=== PATIENT | female | born 1940 | race Caucasian/White ===

== ENCOUNTER 2017-09-07 17:47 | Observation (INO) | payer OTHER ==
[2017-09-07] MEDS ORDERED: methylPREDNISolone NA SUCC 125 MG/2 ML VIAL IVPUSH ONE (18:20)
--- NOTE | 2017-09-07 18:25 | PDOC ---
History of Present Illness - History of Present Illness Initial Comments: 09/07/17 18:30 "Patient is a 76 year old female with past medical history of COPD, CHF and hypertension presents to the ED with shortness of breath for 2 weeks. Patient reports that shortness of breath is worsened with walking. Patient states that inhalers relieve shortness of breath for a short amount of time. She states that this feels like her COPD flares int he past. Patient experiences associated symptoms of frequent non productive cough and bilateral foot swelling that are unchanged. Patient denies fever or chills, chest pain, abdominal pain, diabetes, and high cholesterol. She denies any allergies. Pt denies asymmetric leg swelling, denies recent travel/immobilization. Pt was at Dr. Schroeder's office today and was sent in for admission for her SOB. Allergies: denies Medications: Singulair, potastrin, Myfetapine, Simbacord, Albuterol Surgeries: Gallbladder " <Neil Fernandez - Last Filed: 09/07/17 18:29> <Gorge Nelson - Last Filed: 09/07/17 21:59> - General Chief Complaint: Shortness of Breath Stated Complaint: SOB Time Seen by Provider: 09/07/17 17:52 Past History - Past Medical History Asthma: Yes COPD: Yes CHF: Yes Disorders: Yes HTN: Yes Thyroid Disease: Yes ("I get it checked every year" (not sure why)) - Surgical History Cholecystectomy: Yes (Cholecystectomy 1993) - Suicide/Smoking/Psychosocial Hx Smoking History: Never smoked Have you smoked in the past 12 months: No Hx Alcohol Use: No Drug/Substance Use Hx: No Substance Use Type: None Hx Substance Use Treatment: No <Neil Fernandez - Last Filed: 09/07/17 18:29> <Gorge Nelson - Last Filed: 09/07/17 21:59> - Past Medical History Allergies/Adverse Reactions: Allergies Allergy/AdvReac Type Severity Reaction Status Date / Time No Known Allergies Allergy Verified 09/07/17 17:49 Home Medications: Ambulatory Orders Furosemide 40 mg PO DAILY tablet 09/30/16 Albuterol 0.083% Nebulizer Maricarmen [Ventolin 0.083%] 1 neb NEB QID PRN 09/07/17 Budesonide/Formeterol Fumarate [SYMBICORT 160/4.5mcg -] 1 inh PO BID 09/07/17 Review of Systems - Review of Systems Comments:: 09/07/17 18:23 "GENERAL/CONSTITUTIONAL: No fever or chills. No weakness. HEAD, EYES, EARS, NOSE AND THROAT: No change in vision. No ear pain or discharge. No sore throat. CARDIOVASCULAR: +SOB, No chest pain RESPIRATORY: No cough, wheezing, or hemoptysis. GASTROINTESTINAL: No nausea, vomiting, diarrhea or constipation. GENITOURINARY: No dysuria, frequency, or change in urination. MUSCULOSKELETAL: No joint or muscle swelling or pain. No neck or back pain. SKIN: No rash NEUROLOGIC: No headache, vertigo, loss of consciousness, or change in strength/ sensation. ENDOCRINE: No increased thirst. No abnormal weight change. HEMATOLOGIC/LYMPHATIC: No anemia, easy bleeding, or history of blood clots. ALLERGIC/IMMUNOLOGIC: No hives or skin allergy. " <Ou,Neil - Last Filed: 09/07/17 18:29> *Physical Exam - Vital Signs Last Vital Signs Temp Pulse Resp BP Pulse Ox 98.2 F 81 20 209/104 99 09/07/17 17:47 09/07/17 17:47 09/07/17 17:47 09/07/17 17:47 09/07/17 17:47 - Physical Exam Comments: 09/07/17 18:23 "GENERAL: Awake, alert, and fully oriented, in no acute distress HEAD: No signs of trauma EYES: PERRLA, EOMI, sclera anicteric, conjunctiva clear ENT: Auricles normal inspection, hearing grossly normal, nares patent, oropharynx clear without exudates. Moist mucosa NECK: Nontender, no stepoffs, Normal ROM, supple, no lymphadenopathy, JVD, or masses LUNGS: + expiratory wheezes, prolonged expiratory phase, no rales, no rhonchi HEART: Regular rate and rhythm, normal S1 and S2, no murmurs, rubs or gallops ABDOMEN: Soft, nontender, normoactive bowel sounds. No guarding, no rebound. No masses EXTREMITIES: +1 PE BLE, no cords NEUROLOGICAL: Cranial nerves II through XII intact. 5/5 strength and sensation in all extremities, Normal speech, normal gait, normal cerebellar function SKIN: Warm, Dry, normal turgor, no rashes or lesions noted. " <Ou,Neil - Last Filed: 09/07/17 18:29> - Vital Signs Last Vital Signs Temp Pulse Resp BP Pulse Ox 98.2 F 79 20 177/73 97 09/07/17 17:47 09/07/17 19:55 09/07/17 19:55 09/07/17 19:55 09/07/17 19:55 <Gorge Nelson - Last Filed: 09/07/17 21:59> ED Treatment Course - RADIOLOGY Radiology Studies Ordered: Category Date Time Status CHEST PA & LAT [RAD] Stat Radiology 09/07/17 18:10 Ordered <Neil Fernandez - Last Filed: 09/07/17 18:29> - LABORATORY CBC & Chemistry Diagram: 09/07/17 18:30 09/07/17 18:30 - ADDITIONAL ORDERS Additional order review: Laboratory Results 09/07/17 09/07/17 09/07/17 19:00 18:44 18:44 PT with INR 13.4 H INR 1.20 PTT (Actin FS) 30.6 VBG pH 7.36 POC VBG pCO2 50.3 POC VBG pO2 28.9 Mixed VBG HCO3 27.8 H Sodium Potassium Chloride Carbon Dioxide Anion Gap BUN Creatinine Creat Clearance w eGFR Random Glucose Calcium Total Bilirubin AST ALT Alkaline Phosphatase Creatine Kinase Troponin I B-Natriuretic Peptide Total Protein Albumin Urine Color Yellow Urine Appearance Clear Urine pH 6.0 Ur Specific [place] 1.010 Urine Protein Negative Urine Glucose (UA) Negative Urine Ketones Negative Urine Blood Trace-lysed H Urine Nitrite Negative Urine Bilirubin Negative Urine Urobilinogen 0.2 Ur Leukocyte Esterase Negative Urine RBC 5-10 Urine WBC 2-5 Ur Epithelial Cells Few Amorphous Urates Few Urine Bacteria Few 09/07/17 09/07/17 09/07/17 18:44 18:30 18:30 PT with INR INR PTT (Actin FS) VBG pH POC VBG pCO2 POC VBG pO2 Mixed VBG HCO3 Sodium 139 Potassium 4.2 Chloride 103 Carbon Dioxide 28 Anion Gap 8 BUN 12 Creatinine 0.8 Creat Clearance w eGFR > 60 Random Glucose 89 Calcium 9.5 Total Bilirubin 0.8 AST 20 D ALT 18 D Alkaline Phosphatase 128 H Creatine Kinase 137 Troponin I 0.04 B-Natriuretic Peptide 542.29 H Total Protein 6.9 D Albumin 4.3 D Urine Color Urine Appearance Urine pH Ur Specific [place] Urine Protein Urine Glucose (UA) Urine Ketones Urine Blood Urine Nitrite Urine Bilirubin Urine Urobilinogen Ur Leukocyte Esterase Urine RBC Urine WBC Ur Epithelial Cells Amorphous Urates Urine Bacteria 09/07/17 18:30 RBC 5.68 H MCV 88.7 MCHC 33.9 RDW 12.4 MPV 10.0 Neutrophils % 62.4 Lymphocytes % 24.6 Monocytes % 7.4 Eosinophils % 3.1 Basophils % 2.5 H - Medications Given in the ED: ED Medications Discontinued Medications Generic Name Dose Route Start Last Admin Trade Name Janet PRN Reason Stop Dose Admin Albuterol/Ipratropium 1 amp 09/07/17 18:30 09/07/17 21:50 Duoneb - NEB 09/07/17 19:16 1 amp Q15M ELIJAH Administration Methylprednisolone Sodium Succinate 125 mg 09/07/17 18:20 09/07/17 18:50 Solu-Medrol - IVPUSH 09/07/17 18:21 125 mg ONCE ONE Administration <Gorge Nelson - Last Filed: 09/07/17 21:59> Medical Decision Making - Medical Decision Making 09/07/17 18:21 76 F with 2 weeks of progressively worsening SOB. Exam notable for expiratory wheezes, consistent with COPD. However, pt also with pitting edema in lower extremities and hypertensive in ED, suggestive of CHF. Also consider ACS given age and risk factors. Pt with no asymmetric leg swelling, no tachycardia/ tachypnea/hypoxia to suggest PE. - Labs, trop, BNP, VBG - CXR - EKG - Nebs, steroids - Admit tele <Neil Fernandez - Last Filed: 09/07/17 18:29> *DC/Admit/Observation/Transfer <Neil Fernandez - Last Filed: 09/07/17 18:29> - Discharge Dispostion Admit: Yes <Goreg Nelson - Last Filed: 09/07/17 21:59> Diagnosis at time of Disposition: COPD (chronic obstructive pulmonary disease) Qualifiers: COPD type: COPD with acute exacerbation Qualified Code(s): J44.1 - Chronic obstructive pulmonary disease with (acute) exacerbation - Discharge Dispostion Disposition: HOME Condition at time of disposition: Stable - Referrals Referrals: Carrington Peñaloza MD [Primary Care Provider] - - Patient Instructions - Post Discharge Activity
[2017-09-07] MEDS ORDERED: ALBUTEROL SO4 2.5/IPRATROPIUM 0.5 INH SOL 3 ML VIAL.NEB. NEB ONE (18:43)
[2017-09-07] MEDS ORDERED: methylPREDNISolone NA SUCC 125 MG/2 ML VIAL ONE (18:43)
[2017-09-07] MEDS: ALBUTEROL SO4 2.5/IPRATROPIUM 0.5 INH SOL 3 ML VIAL.NEB. NEB SCH ×4 (18:54→21:50)
[2017-09-07 19:16] LABS: BASO % 2.5 % (0-2.0); EOS % 3.1 % (0-4.5); HEMATOCRIT 50.4 % (32.4-45.2); HEMOGLOBIN 17.1 GM/dl (10.7-15.3); LYMPH % 24.6 % (8-40); MCH 30.1 pg (25.7-33.7); MCHC 33.9 g/dl (32.0-36.0); MEAN CELL VOLUME 88.7 fl (80-96); MONO % 7.4 % (3.8-10.2); NEUT % 62.4 % (42.8-82.8); PLATELET COUNT 309 K/MM3 (134-434); RBC 5.68 M/mm3 (3.60-5.2); RDW 12.4 % (11.6-15.6); WHITE BLOOD COUNT 10.8 K/mm3 (4.0-10.8)
[2017-09-07 19:30] LABS: ALBUMIN 4.3 g/dl (3.5-5.0); ALK PHOS 128 U/L (32-92); ANION GAP 8 (8-16); BILIRUBIN,TOTAL 0.8 mg/dl (0.2-1.0); BLOOD UREA NITROGEN 12 mg/dl (7-18); CALCIUM 9.5 mg/dl (8.4-10.2); CHLORIDE 103 mmol/L (98-107); CO2 28 mmol/L (22-28); CREATININE 0.8 mg/dl (0.6-1.3); GLUCOSE,RANDOM 89 mg/dl (74-106); POTASSIUM 4.2 mmol/L (3.5-5.1); SGOT/AST 20 U/L (10-42); SGPT/ALT 18 U/L (10-40); SODIUM 139 mmol/L (136-145); TOT PROT 6.9 g/dl (6.4-8.3)
[2017-09-07 19:33] LABS: ACTIVATED PTT 30.6 SECONDS (24.0-38.9)
[2017-09-07 19:35] LABS: URINE APPEARANCE Clear; URINE BILIRUBIN Negative (NEGATIVE); URINE GLUCOSE (UA) Negative (NEGATIVE); URINE KETONE Negative (NEGATIVE); URINE LEUK ESTERASE Negative (NEGATIVE); URINE NITRITE Negative (NEGATIVE); URINE PROTEIN Negative (NEGATIVE); URINE UROBILINOGEN 0.2 (0.2-1.0)
[2017-09-07 19:37] LABS: INR 1.2 (0.82-1.09); PROTHROMBIN TIME (PATIENT) 13.4 SEC (10.2-13.0)
[2017-09-07 19:44] LABS: URINE BLOOD Trace-lysed (NEGATIVE); URINE COLOR YELLOW
[2017-09-07 19:55] LABS: AMORP URATES FEW /hpf (NONE SEEN); EPI CELLS FEW /HPF; URINE BACTERIA FEW /hpf (NEGATIVE)
[2017-09-07 20:30] LABS: VENOUS PC02 50.3 mmHg (38-52); VENOUS PH 7.36 (7.32-7.42)
[2017-09-07 20:31] LABS: VENOUS PO2 28.9 mmHg (28-48)
--- NOTE | 2017-09-08 00:37 | HP ---
CHIEF COMPLAINT: SOB PCP: [facility] HISTORY OF PRESENT ILLNESS: This is a 76 year old female with a past medical history of COPD, CHF, HTN who presented to the ED with SOB x 2 weeks that increases with walking. She was sent for admission from her PCP office today. ER course was notable for: (1) tx with solumedrol 125 and duoneb x 4 (2) CXR without acute changes Recent Travel: pt denies PAST MEDICAL HISTORY: COPD, CHF, HTN PAST SURGICAL HISTORY: Cholecystectomy Social History: Smoking: pt denies Alcohol: pt denies Drugs: pt denies Family History: mother age 78, CVAs, first age 70 father age 35, heart disease 2 children, alive and well Allergies No Known Allergies Allergy (Verified 09/07/17 17:49) Ambulatory Orders Carvedilol 3.125mg BID Enalapril 20mg BID Adalat CC 30mg daily Potassium Chloride 20mEq daily Furosemide 40 mg PO DAILY tablet 09/30/16 Albuterol 0.083% Nebulizer Maricarmen [Ventolin 0.083%] 1 neb NEB QID PRN 09/07/17 Budesonide/Formeterol Fumarate [SYMBICORT 160/4.5mcg -] 1 inh PO BID 09/07/17 REVIEW OF SYSTEMS CONSTITUTIONAL: Absent: fever, chills, diaphoresis, generalized weakness, malaise, loss of appetite, weight change HEENT: Absent: rhinorrhea, nasal congestion, throat pain, throat swelling, difficulty swallowing, mouth swelling, ear pain, eye pain, visual changes CARDIOVASCULAR: Absent: chest pain, syncope, palpitations, irregular heart rate, lightheadedness , peripheral edema RESPIRATORY: Present: shortness of breath, dyspnea with exertion Absent: cough, orthopnea, wheezing, stridor, hemoptysis GASTROINTESTINAL: Absent: abdominal pain, abdominal distension, nausea, vomiting, diarrhea, constipation, melena, hematochezia GENITOURINARY: Absent: dysuria, frequency, urgency, hesitancy, hematuria, flank pain, genital pain MUSCULOSKELETAL: Absent: myalgia, arthralgia, joint swelling, back pain, neck pain SKIN: Absent: rash, itching, pallor HEMATOLOGIC/IMMUNOLOGIC: Absent: easy bleeding, easy bruising, lymphadenopathy, frequent infections ENDOCRINE: Absent: unexplained weight gain, unexplained weight loss, heat intolerance, cold intolerance NEUROLOGIC: Absent: headache, focal weakness or paresthesias, dizziness, unsteady gait, seizure, mental status changes, bladder or bowel incontinence PSYCHIATRIC: Absent: anxiety, depression, suicidal or homicidal ideation, hallucinations. PHYSICAL EXAMINATION Vital Signs - 24 hr 3 09/07/17 09/07/17 09/07/17 17:47 18:57 19:55 Temperature 98.2 F Pulse Rate 81 Pulse Rate [ 76 79 Left Apical] Respiratory 20 20 20 Rate Blood Pressure 209/104 Blood Pressure 183/70 177/73 [Right Arm] O2 Sat by Pulse 99 96 97 Oximetry (%) GENERAL: Awake, alert, and fully oriented, in no acute distress. HEAD: Normal with no signs of trauma. EYES: Pupils equal, round and reactive to light, extraocular movements intact, sclera anicteric, conjunctiva clear. No lid lag. EARS, NOSE, THROAT: Ears normal, nares patent, oropharynx clear without exudates. Moist mucous membranes. NECK: Normal range of motion, supple without lymphadenopathy, JVD, or masses. LUNGS: Breath sounds equal, clear to auscultation bilaterally. No wheezes, and no crackles. No accessory muscle use. + prolonged expiration HEART: Regular rate and rhythm, normal S1 and S2 without murmur, rub or gallop. ABDOMEN: Soft, nontender, not distended, normoactive bowel sounds, no guarding, no rebound, no masses. No hepatomegaly or splenomegaly. MUSCULOSKELETAL: Normal range of motion at all joints. No bony deformities or tenderness. No CVA tenderness. UPPER EXTREMITIES: 2+ pulses, warm, well-perfused. No cyanosis. No clubbing. No peripheral edema. LOWER EXTREMITIES: 2+ pulses, warm, well-perfused. No calf tenderness. tr peripheral edema. NEUROLOGICAL: Cranial nerves II-XII intact. Normal speech. Normal gait. PSYCHIATRIC: Cooperative. Good eye contact. Appropriate mood and affect. SKIN: Warm, dry, normal turgor, no rashes or lesions noted, normal capillary refill. Laboratory Results - last 24 hr 3 09/07/17 09/07/17 09/07/17 18:30 18:30 18:30 WBC 10.8 RBC 5.68 H Hgb 17.1 H Hct 50.4 H MCV 88.7 MCH 30.1 MCHC 33.9 RDW 12.4 Plt Count 309 MPV 10.0 Neutrophils % 62.4 Lymphocytes % 24.6 Monocytes % 7.4 Eosinophils % 3.1 Basophils % 2.5 H PT with INR 13.4 H INR 1.20 PTT (Actin FS) 30.6 VBG pH 7.36 POC VBG pCO2 50.3 POC VBG pO2 28.9 Mixed VBG HCO3 27.8 H Sodium 139 Potassium 4.2 Chloride 103 Carbon Dioxide 28 Anion Gap 8 BUN 12 Creatinine 0.8 Creat Clearance w eGFR > 60 Random Glucose 89 Calcium 9.5 Total Bilirubin 0.8 AST 20 D ALT 18 D Alkaline Phosphatase 128 H Creatine Kinase 137 Troponin I 0.04 542.29 H B-Natriuretic Peptide Total Protein 6.9 D Albumin 4.3 D Urine Color Urine Appearance Urine pH Ur Specific [place] Urine Protein Urine Glucose (UA) Urine Ketones Urine Blood Urine Nitrite Urine Bilirubin Urine Urobilinogen Ur Leukocyte Esterase Urine RBC Urine WBC Ur Epithelial Cells Amorphous Urates Urine Bacteria 3 Urine Color Yellow 09/07/17 19:00 Urine Appearance Clear 09/07/17 19:00 Urine pH 6.0 (4.5-8) 09/07/17 19:00 Ur Specific [place] 1.010 (1.005-1.025) 09/07/17 19:00 Urine Protein Negative (NEGATIVE) 09/07/17 19:00 Urine Glucose (UA) Negative (NEGATIVE) 09/07/17 19:00 Urine Ketones Negative (NEGATIVE) 09/07/17 19:00 Urine Blood Trace-lysed (NEGATIVE) H 09/07/17 19:00 Urine Nitrite Negative (NEGATIVE) 09/07/17 19:00 Urine Bilirubin Negative (NEGATIVE) 09/07/17 19:00 Ur Leukocyte Esterase Negative (NEGATIVE) 09/07/17 19:00 Urine RBC 5-10 /hpf (0-3) 09/07/17 19:00 Urine WBC 2-5 (0-5) 09/07/17 19:00 Ur Epithelial Cells Few /HPF 09/07/17 19:00 Urine Bacteria Few /hpf (NEGATIVE) 09/07/17 19:00 Radiology Reports IMPRESSION: 1. No evidence of acute infiltrate, pulmonary vascular congestion or pleural effusion. 2. Multiple bilateral nodular opacities are grossly similar to 08/03/2015 chest x-ray. Please correlate with 05/26/[address] Reported By: Rojas Young DO 09/07/171947 ECG Normal sinus rhythm vent rate 65, QTC 472 left axis deviation LBBB ASSESSMENT/PLAN: 76yF with PMH COPD, CHF, HTN presented to the ED with a past medical history significant for COPD, CHF, HTN presented to the ED with SOB x 2 weeks. She reports the SOB worsens with ambulation. COPD exac - improved after nebs and solumedrol - will cont solumedrol 40mg Q6h, taper DIEGO - Duoneb Q6h - pulm consult, has seen vick in the past CHF - pt reports that she doesn't always take her lasix at home - cont lasix 40mg daily with KCL supplementation HTN - Cont home coreg, enalapril, nifedipine DVT PPX - heparin deferred as anticipated LOS <48h FEN - tolerating po - BMP in am - low sodium diet as tolerated Dispo: Pt admitted for further observation. Visit type - Emergency Visit Emergency Visit: Yes ED Registration Date: 09/07/17 Care time: The patient presented to the Emergency Department on the above date and was hospitalized for further evaluation of their emergent condition. - New Patient This patient is new to me today: Yes Date on this admission: 09/07/17 - Critical Care Critical Care patient: No Hospitalist Screening - Colonoscopy Questionnaire Colonoscopy Questionnaire: Colonoscopy Questionnaire - Patient: 50 - 75 years old and never had a screening colonoscopy: No History of colon or rectal polyps, or CA: No History of IBD, Crohn's disease or UC: No History of abdominal radiation therapy as a child: No - Relative: 1 with colon or rectal CA, or polyps at age 60 or younger: No Colon or rectal CA diagnosed at age 45 or younger: No Multiple relatives with colon or rectal CA: No - Outcome: Screening Result: Negative Screen
[2017-09-08 00:56] VITALS: BMI 36.4
[2017-09-08] MEDS: methylPREDNISolone NA SUCC 40 MG/1 ML VIAL IVPUSH SCH ×4 (02:52→20:24)
[2017-09-08] MEDS: ALBUTEROL SO4 0.083% IH SOL 2.5 MG/3 ML VIAL.NEB. NEB PRN (04:17)
[2017-09-08 08:47] LABS: BASO % 2.5 % (0-2.0); HEMATOCRIT 45.2 % (32.4-45.2); HEMOGLOBIN 15.5 GM/dl (10.7-15.3); LYMPH % 12.1 % (8-40); MCH 30.2 pg (25.7-33.7); MCHC 34.3 g/dl (32.0-36.0); MEAN CELL VOLUME 88.2 fl (80-96); MONO % 0.4 % (3.8-10.2); PLATELET COUNT 242 K/MM3 (134-434); RBC 5.13 M/mm3 (3.60-5.2); RDW 12.3 % (11.6-15.6); WHITE BLOOD COUNT 9.7 K/mm3 (4.0-10.8)
[2017-09-08] MEDS: ALBUTEROL SO4 2.5/IPRATROPIUM 0.5 INH SOL 3 ML VIAL.NEB. NEB SCH ×4 (08:50→20:24)
[2017-09-08 09:11] LABS: ANION GAP 9 (8-16); BLOOD UREA NITROGEN 17 mg/dl (7-18); CALCIUM 9.3 mg/dl (8.4-10.2); CHLORIDE 103 mmol/L (98-107); CO2 24 mmol/L (22-28); GLUCOSE,RANDOM 174 mg/dl (74-106); MAGNESIUM 1.9 mg/dL (1.8-2.4); PHOSPHOROUS 3.7 mg/dl (2.5-4.6); POTASSIUM 4.5 mmol/L (3.5-5.1); SODIUM 136 mmol/L (136-145)
[2017-09-08] MEDS ORDERED: PT OWN MED DRAWER 7, Y5N ONE ×2 (09:26→22:02)
[2017-09-08 09:41] LABS: CREATININE 0.8 mg/dl (0.6-1.3)
--- NOTE | 2017-09-08 10:01 | EKG ---
Test Reason : Blood Pressure : / mmHG Vent. Rate : 065 BPM Atrial Rate : 065 BPM P-R Int : 198 ms QRS Dur : 150 ms QT Int : 454 ms P-R-T Axes : 022 -36 111 degrees QTc Int : 472 ms NORMAL SINUS RHYTHM LEFT AXIS DEVIATION LEFT BUNDLE BRANCH BLOCK ABNORMAL ECG NO PREVIOUS ECGS AVAILABLE Confirmed by HENRIQUE JAEGER MD ([id number]) on 09/08/2017 10:01:24 AM Referred By: DR CRAWFORD Confirmed By:HENRIQUE JAEGER MD
[2017-09-08] MEDS: POTASSIUM CHLORIDE TABS 20 MEQ TABLET.ER (FP) PO SCH (10:07)
[2017-09-08] MEDS: CARVEDILOL 3.125 MG TABLET (FP) PO SCH ×2 (10:07→22:03)
[2017-09-08] MEDS: NIFEdipine E.R. 30 MG TABLET (FP) PO SCH (10:07)
[2017-09-08] MEDS: FUROSEMIDE 40 MG TABLET (FP) PO SCH (10:07)
[2017-09-08] MEDS: ENALAPRIL MALEATE 10 MG TABLET (FP) PO SCH ×2 (10:07→22:03)
[2017-09-08] MEDS: BUDESONIDE/FORMETEROL FUMARATE 160/4.5 mcg INHALER IH SCH ×2 (10:07→22:03)
--- NOTE | 2017-09-08 11:23 | CON.PULM ---
Consult Consult Specialty:: PULMONARY Referred by:: RUTH Reason for Consultation:: SOTO - History of Present Illness Chief Complaint: SOTO FOR LAST TWO WEEKS History of Present Illness: 76 NEVER SMOKER LIVES ALONE RETIRED PRESENTS WITH SOTO WORSENING OVER PAST 2 WEEKS. COUGH NO SPUTUM,OCCASIONAL RIGHT SIDED CHEST DISCOMFORT,DENIES PALPS,SYNCOPE, NONCOMPLIANT WITH DAILY LASIX. PATIENT HAS A LARGE COMPLEX MASS IN THYROID FOR WHICH AN ULTRASOUND WAS DONE IN 2017. THE IMAGES REVEAL AN ENLARGING COMPLEX MASS FOR WHICH BX WAS SUGGESTED. PATIENT DOES NOT WANT TO HAVE "ANOTHER"NEEDLE BIOPSY. IN VIEW OF MULTIPLE STABLE LUNG NODULES OF UNKNOWN ETIOLOGY WILL REQUEST A REPEAT US THYROID AND ENCOURAGE ANOTHER DIAGNOSTIC PROCEDURE. 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 No: AFIB Pulmonary: Yes: Asthma, COPD, Other (CHRONIC STABLE PULMONARY NODULES) Gastrointestinal: No: Ascites Hepatobiliary: No: Cirrhosis Renal/: No: Renal Failure Reproductive: Yes: Postmenopausal Heme/Onc: No: Anemia Psych: No: Addictions Musculoskeletal: Yes: Chronic low back pain Rheumatology: No: Fibromyalgia ENT: No: Allergic Rhinitis Endocrine: Yes: Other (THYROID NODULE) - Past Surgical History Past Surgical History: Yes: Cholecystectomy Additional Surgical History: THYROID NODULE ASPIRATION IN PAST. BENIGN PER PATIENT - Alcohol/Substance Use Hx Alcohol Use: No History of Substance Use: reports: None - Smoking History Smoking history: Never smoked Have you smoked in the past 12 months: No - Social History Usual Living Arrangement: Alone ADL: Independent Occupation: Retired- Benefits Counselor for [employer] Place of : [facility] History of Recent Travel: No Home Medications - Allergies Allergies/Adverse Reactions: Allergies Allergy/AdvReac Type Severity Reaction Status Date / Time No Known Allergies Allergy Verified 09/07/17 17:49 - Home Medications Home Medications: Ambulatory Orders Furosemide 40 mg PO DAILY tablet 09/30/16 Albuterol 0.083% Nebulizer Maricarmen [Ventolin 0.083%] 1 neb NEB QID PRN 09/07/17 Budesonide/Formeterol Fumarate [SYMBICORT 160/4.5mcg -] 1 inh PO BID 09/07/17 Family Disease History - Family Disease History Family History: Unremarkable Review of Systems - Review of Systems Constitutional: denies: Fever, Loss of Appetite Eyes: denies: Blurred Vision HENT: denies: Difficult Swallowing Neck: denies: Decreased ROM Cardiovascular: reports: Shortness of Breath Respiratory: reports: Cough, Exercise Intolerance, SOB, SOB on Exertion, Wheezing. denies: Hemoptysis Gastrointestinal: denies: Abdominal Pain Genitourinary: denies: Burning Breasts: reports: No Symptoms Reported Musculoskeletal: reports: No Symptoms Physical Exam Vital Sings: Vital Signs Temperature 98.4 F 09/08/17 09:00 Pulse Rate 85 09/08/17 09:00 Respiratory Rate 18 09/08/17 09:00 Blood Pressure 180/78 09/08/17 09:00 O2 Sat by Pulse Oximetry (%) 97 09/08/17 08:25 Constitutional: Yes: Calm Eyes: Yes: EOM Intact HENT: Yes: Normocephalic Neck: Yes: Trachea Midline Cardiovascular: Yes: Regular Rate and Rhythm Respiratory: Yes: Rales (BASES MINIMAL). No: Wheezes Gastrointestinal: Yes: Normal Bowel Sounds, Abdomen, Obese Edema: LLE: Trace, RLE: 1+ Integumentary: Yes: WNL Neurological: Yes: WNL Labs: CBC, BMP 09/08/17 08:10 09/08/17 08:10 REST REVIEWED Imaging - Results Chest X-ray: Report Reviewed, Image Reviewed Cat Scan: Report Reviewed, Image Reviewed Ultrasound: Report Reviewed Problem List - Problems (1) Lung nodule < 6cm on CT Code(s): R91.1 - SOLITARY PULMONARY NODULE (2) Lung nodule, multiple Code(s): R91.8 - OTHER NONSPECIFIC ABNORMAL FINDING OF LUNG FIELD (3) Thyroid nodule Code(s): E04.1 - NONTOXIC SINGLE THYROID NODULE (4) COPD (chronic obstructive pulmonary disease) Code(s): J44.9 - CHRONIC OBSTRUCTIVE PULMONARY DISEASE, UNSPECIFIED Qualifiers: COPD type: COPD with acute exacerbation Qualified Code(s): J44.1 - Chronic obstructive pulmonary disease with (acute) exacerbation (5) Back pain Code(s): M54.9 - DORSALGIA, UNSPECIFIED (6) CHF (congestive heart failure) Code(s): I50.9 - HEART FAILURE, UNSPECIFIED Assessment/Plan WILL CONTINUE TREATMENT FOR COPD EXACERBATION ALONG WITH CHF ECHO/CARDIO EVAL/DIURETICS/O2 SUPPLEMENTATION/DAILY WEIGHTS LUDMILA/LABA/LAMA/BRIEF COURSE STEROIDS REPEAT US THYROID/ENCOURAGE REPEAT TNA Etienne DWYER MD
--- NOTE | 2017-09-08 12:58 | PN ---
Physical Exam: SUBJECTIVE: Patient seen and examined. This is a 76 year old female with a past medical history of COPD, CHF, HTN who presented to the ED with SOB x 2 weeks that increases with walking. She was sent for admission from her PCP office yesterday. OBJECTIVE: Vital Signs Period Temp Pulse Resp BP Sys/Pizarro Pulse Ox Last 24 Hr 98.1 F-98.4 F 20-85 18-71 135-209/54-104 96-99 GENERAL: The patient is awake, alert, and fully oriented, in no acute distress. HEAD: Normal with no signs of trauma. EYES: PERRL, extraocular movements intact, sclera anicteric, conjunctiva clear. No ptosis. ENT: Ears normal, nares patent, oropharynx clear without exudates, moist mucous membranes. NECK: Trachea midline, full range of motion, supple. LUNGS: Breath sounds equal, clear to auscultation bilaterally, no wheezes, no crackles, no accessory muscle use. HEART: Regular rate and rhythm, S1, S2 without murmur, rub or gallop. ABDOMEN: Soft, nontender, nondistended, normoactive bowel sounds, no guarding, no rebound, no hepatosplenomegaly, no masses. EXTREMITIES: 2+ pulses, warm, well-perfused, no edema. NEUROLOGICAL: Cranial nerves II through XII grossly intact. Normal speech, gait not observed. PSYCH: Normal mood, normal affect. SKIN: Warm, dry, normal turgor, no rashes or lesions noted Laboratory Results - last 24 hr 09/07/17 09/07/17 09/07/17 18:30 18:30 18:30 WBC 10.8 RBC 5.68 H Hgb 17.1 H Hct 50.4 H MCV 88.7 MCH 30.1 MCHC 33.9 RDW 12.4 Plt Count 309 MPV 10.0 Neutrophils % 62.4 Lymphocytes % 24.6 Monocytes % 7.4 Eosinophils % 3.1 Basophils % 2.5 H PT with INR INR PTT (Actin FS) VBG pH POC VBG pCO2 POC VBG pO2 Mixed VBG HCO3 Sodium 139 Potassium 4.2 Chloride 103 Carbon Dioxide 28 Anion Gap 8 BUN 12 Creatinine 0.8 Creat Clearance w eGFR > 60 Random Glucose 89 Calcium 9.5 Phosphorus Magnesium Total Bilirubin 0.8 AST 20 D ALT 18 D Alkaline Phosphatase 128 H Creatine Kinase 137 Troponin I 0.04 B-Natriuretic Peptide Total Protein 6.9 D Albumin 4.3 D Urine Color Urine Appearance Urine pH Ur Specific [place] Urine Protein Urine Glucose (UA) Urine Ketones Urine Blood Urine Nitrite Urine Bilirubin Urine Urobilinogen Ur Leukocyte Esterase Urine RBC Urine WBC Ur Epithelial Cells Amorphous Urates Urine Bacteria 09/07/17 09/07/17 09/07/17 18:44 18:44 18:44 WBC RBC Hgb Hct MCV MCH MCHC RDW Plt Count MPV Neutrophils % Lymphocytes % Monocytes % Eosinophils % Basophils % PT with INR 13.4 H INR 1.20 PTT (Actin FS) 30.6 VBG pH 7.36 POC VBG pCO2 50.3 POC VBG pO2 28.9 Mixed VBG HCO3 27.8 H Sodium Potassium Chloride Carbon Dioxide Anion Gap BUN Creatinine Creat Clearance w eGFR Random Glucose Calcium Phosphorus Magnesium Total Bilirubin AST ALT Alkaline Phosphatase Creatine Kinase Troponin I B-Natriuretic Peptide 542.29 H Total Protein Albumin Urine Color Urine Appearance Urine pH Ur Specific [place] Urine Protein Urine Glucose (UA) Urine Ketones Urine Blood Urine Nitrite Urine Bilirubin Urine Urobilinogen Ur Leukocyte Esterase Urine RBC Urine WBC Ur Epithelial Cells Amorphous Urates Urine Bacteria 09/07/17 09/08/17 09/08/17 19:00 08:10 08:10 WBC 9.7 RBC 5.13 Hgb 15.5 H Hct 45.2 MCV 88.2 MCH 30.2 MCHC 34.3 RDW 12.3 Plt Count 242 MPV 10.0 Neutrophils % 85.0 H Lymphocytes % 12.1 Monocytes % 0.4 L Eosinophils % 0.0 Basophils % 2.5 H PT with INR INR PTT (Actin FS) VBG pH POC VBG pCO2 POC VBG pO2 Mixed VBG HCO3 Sodium 136 Potassium 4.5 Chloride 103 Carbon Dioxide 24 Anion Gap 9 BUN 17 D Creatinine 0.8 Creat Clearance w eGFR Random Glucose 174 H D Calcium 9.3 Phosphorus 3.7 Magnesium 1.9 Total Bilirubin AST ALT Alkaline Phosphatase Creatine Kinase Troponin I B-Natriuretic Peptide Total Protein Albumin Urine Color Yellow Urine Appearance Clear Urine pH 6.0 Ur Specific [place] 1.010 Urine Protein Negative Urine Glucose (UA) Negative Urine Ketones Negative Urine Blood Trace-lysed H Urine Nitrite Negative Urine Bilirubin Negative Urine Urobilinogen 0.2 Ur Leukocyte Esterase Negative Urine RBC 5-10 Urine WBC 2-5 Ur Epithelial Cells Few Amorphous Urates Few Urine Bacteria Few Active Medications Generic Name Dose Route Start Last Admin Trade Name Freq PRN Reason Stop Dose Admin Albuterol Sulfate 1 amp 09/08/17 00:28 09/08/17 04:17 Ventolin 0.083% Nebulizer Soln - NEB 1 amp Q6H PRN Administration WHEEZING Albuterol/Ipratropium 1 amp 09/08/17 08:00 09/08/17 08:50 Duoneb - NEB 1 amp RQID ELIJAH Administration Budesonide/Formoterol Fumarate 1 puff 09/08/17 10:00 09/08/17 10:07 Symbicort 160/4.5mcg - IH 1 puff BID ELIJAH Administration Carvedilol 3.125 mg 09/08/17 10:00 09/08/17 10:07 Coreg - PO 3.125 mg BID ELIJAH Administration Enalapril Maleate 20 mg 09/08/17 10:00 09/08/17 10:07 Vasotec - PO 20 mg BID ELIJAH Administration Furosemide 40 mg 09/08/17 10:00 09/08/17 10:07 Lasix - PO 40 mg DAILY ELIJAH Administration Methylprednisolone Sodium Succinate 40 mg 09/08/17 03:00 09/08/17 09:00 Solu-Medrol - IVPUSH 40 mg Q6H-IV ELIJAH Administration Nifedipine 30 mg 09/08/17 10:00 09/08/17 10:07 Procardia Xl - PO 30 mg DAILY ELIJAH Administration Potassium Chloride 20 meq 09/08/17 10:00 09/08/17 10:07 K-Dur - PO 20 meq DAILY ELIJAH Administration ASSESSMENT/PLAN: This 76yF with PMH COPD, CHF, HTN presented to the ED with a past medical history significant for COPD, CHF, HTN presented to the ED with SOB x 2 weeks. She reports the SOB worsens with ambulation. COPD exac - continues to wheeze, + cough and mild tachy - will cont solumedrol 40mg Q6h, taper DIEGO - Duoneb Q6h - Appreciate Dr. Antonio for pulmonary consult who has been following her for lung nodules hx. CHF - pt reports that she doesn't always take her lasix at home - cont lasix 40mg daily with KCL supplementation HTN - Cont home coreg, enalapril, nifedipine DVT PPX - heparin deferred as anticipated LOS <48h - scd FEN - tolerating po - BMP in am - low sodium diet as tolerated Dispo: Pt admitted inpatient due to respiratory distress. . Visit type - Emergency Visit Emergency Visit: Yes ED Registration Date: 09/07/17 Care time: The patient presented to the Emergency Department on the above date and was hospitalized for further evaluation of their emergent condition. - New Patient This patient is new to me today: Yes Date on this admission: 09/08/17 - Critical Care Critical Care patient: No - Discharge Referral Referred to [facility] Med P.C.: No
[2017-09-09] MEDS: methylPREDNISolone NA SUCC 40 MG/1 ML VIAL IVPUSH SCH ×2 (02:33→09:30)
[2017-09-09 04:01] VITALS: TEMP 97.8
[2017-09-09] MEDS: ALBUTEROL SO4 0.083% IH SOL 2.5 MG/3 ML VIAL.NEB. NEB PRN (04:26)
[2017-09-09 07:29] VITALS: BP 151/67; PULSE 68
[2017-09-09 07:57] LABS: HEMATOCRIT 45.4 % (32.4-45.2); HEMOGLOBIN 15.4 GM/dl (10.7-15.3); MCH 30.3 pg (25.7-33.7); MCHC 33.9 g/dl (32.0-36.0); MEAN CELL VOLUME 89.3 fl (80-96); MEAN PLT VOLUME 10.1 fl (7.5-11.1); PLATELET COUNT 279 K/MM3 (134-434); RBC 5.09 M/mm3 (3.60-5.2); RDW 12.5 % (11.6-15.6); WHITE BLOOD COUNT 21.5 K/mm3 (4.0-10.8)
[2017-09-09] MEDS: ALBUTEROL SO4 2.5/IPRATROPIUM 0.5 INH SOL 3 ML VIAL.NEB. NEB SCH (08:00)
[2017-09-09 08:02] LABS: ALBUMIN 3.7 g/dl (3.5-5.0); ALK PHOS 112 U/L (32-92); ANION GAP 9 (8-16); BILIRUBIN,TOTAL 0.3 mg/dl (0.2-1.0); BLOOD UREA NITROGEN 23 mg/dl (7-18); CALCIUM 9.3 mg/dl (8.4-10.2); CHLORIDE 104 mmol/L (98-107); CO2 23 mmol/L (22-28); CREATININE 0.9 mg/dl (0.6-1.3); GLUCOSE,RANDOM 213 mg/dl (74-106); MAGNESIUM 2.1 mg/dL (1.8-2.4); PHOSPHOROUS 3.7 mg/dl (2.5-4.6); POTASSIUM 4.2 mmol/L (3.5-5.1); SGOT/AST 25 U/L (10-42); SGPT/ALT 15 U/L (10-40); SODIUM 136 mmol/L (136-145); TOT PROT 6.1 g/dl (6.4-8.3)
[2017-09-09 08:25] LABS: ADD RBC MORPHOLOGY YES
--- NOTE | 2017-09-09 08:58 | DS ---
Physical Exam: SUBJECTIVE: Patient seen and examined.This is a 76 year old female with a past medical history of COPD, CHF, HTN who presented to the ED with SOB x 2 weeks that increases with walking. She was sent for admission from her PCP office for COPD exacerbations and cough. OBJECTIVE: Vital Signs Period Temp Pulse Resp BP Sys/Pizarro Pulse Ox Last 24 Hr 97.8 F-98.4 F 68-88 18-20 148-180/66-81 95-97 PHYSICAL EXAM GENERAL: The patient is awake, alert, and fully oriented, in no acute distress. HEAD: Normal with no signs of trauma. NECK: Trachea midline, full range of motion, supple. LUNGS: Breath sounds equal, clear to auscultation bilaterally, no wheezes, some bronchiole tightness, + cough with production of whitish color. no crackles, no accessory muscle use. HEART: Regular rate and rhythm, S1, S2 without murmur, rub or gallop. ABDOMEN: Soft, nontender, nondistended, normoactive bowel sounds, no guarding, no rebound, no hepatosplenomegaly, no masses. EXTREMITIES: 2+ pulses, warm, well-perfused, no edema. NEUROLOGICAL: Cranial nerves II through XII grossly intact. Normal speech, gait not observed. PSYCH: Normal mood, normal affect. SKIN: Warm, dry, normal turgor, no rashes or lesions noted. LABS Laboratory Results - last 24 hr 09/08/17 09/08/17 09/09/17 08:10 08:10 07:19 WBC 9.7 21.5 H D RBC 5.13 5.09 Hgb 15.5 H 15.4 H Hct 45.2 45.4 H MCV 88.2 89.3 MCH 30.2 30.3 MCHC 34.3 33.9 RDW 12.3 12.5 Plt Count 242 279 MPV 10.0 10.1 Neutrophils % 85.0 H Environmental Compliance Manager Lymphocytes % 12.1 Environmental Compliance Manager Monocytes % 0.4 L Environmental Compliance Manager Eosinophils % 0.0 Environmental Compliance Manager Basophils % 2.5 H Environmental Compliance Manager Sodium 136 Potassium 4.5 Chloride 103 Carbon Dioxide 24 Anion Gap 9 BUN 17 D Creatinine 0.8 Creat Clearance w eGFR Random Glucose 174 H D Calcium 9.3 Phosphorus 3.7 Magnesium 1.9 Total Bilirubin AST ALT Alkaline Phosphatase Total Protein Albumin 09/09/17 07:19 WBC RBC Hgb Hct MCV MCH MCHC RDW Plt Count MPV Neutrophils % Lymphocytes % Monocytes % Eosinophils % Basophils % Sodium 136 Potassium 4.2 Chloride 104 Carbon Dioxide 23 Anion Gap 9 BUN 23 H D Creatinine 0.9 Creat Clearance w eGFR > 60 Random Glucose 213 H D Calcium 9.3 Phosphorus 3.7 Magnesium 2.1 Total Bilirubin 0.3 D AST 25 D ALT 15 Alkaline Phosphatase 112 H Total Protein 6.1 L Albumin 3.7 HOSPITAL COURSE: This 76yF with PMH COPD, CHF, HTN presented to the ED with a past medical history significant for COPD, CHF, HTN presented to the ED with SOB x 2 weeks. She reports the SOB worsens with ambulation. COPD exac - wheezing improved, sounds loose now with a + cough whitish production and mild tachy - will cont prednisone at home until follow up with Pulmonary - Duoneb Q6h at home planned - Appreciate Dr. Antonio for pulmonary consult who has been following her for lung nodules hx. - Pt states she does not use oxygen at home and usually her saturations are 97% CHF - pt reports that she doesn't always take her lasix at home - cont lasix 40mg daily with KCL supplementation upon discharge until follow up with Dr. Antonio - will encourage cardiology follow up outpatient - outpatient Echo Chronic Lung Nodules - Pt following with Dr. Addison, for lung nodules that are unchanged from prior CT - continue to follow pulmonary - outpatient thyroid u/s is recommended for follow up of nodules. HTN - Cont home coreg, enalapril, nifedipine DVT PPX - heparin deferred as anticipated LOS <48h - scd FEN - tolerating po - BMP reviewed. - low sodium diet as tolerated Dispo: Will discharge home today Date of Admission:09/07/17 Date of Discharge: 09/09/17 Minutes to complete discharge: 45 Discharge Summary Reason For Visit: SOB Current Active Problems COPD (chronic obstructive pulmonary disease) (Acute) Lung nodule < 6cm on CT (Acute) Lung nodule, multiple (Acute) Thyroid nodule (Acute) Hospital Course: This 76 yr old obese female presents with a COPD excerbation with a hx of lung nodules, COPD and CHF. she is given steroids IV and oxygen with duonebs and after a course of 24 hours, pt is much improved on her breathing, wheezing subsided and she is feeling better. She was seen by Dr. Antonio and suggests to send the pt home with prednisone and follow up in the office next week she understands these discharge instructions and will return to home. Condition: Stable - Instructions Diet, Activity, Other Instructions: Discharge instructions 1. Call your primary physician on Monday and explain you have been seen and hospitalized for COPD excerbation and treated with IV steroids and now on pills until you follow up with Dr. Cruz 2. Please call and schedule an appt with Dr. Cruz for Monday, September 13 for a follow up 3. I am sending you home on steroids (Prednisone) and you should take them daily until follow up with Dr. Cruz. Please make sure you eat when taking them. Also you should take them with Omeprizole or Pepcid for any reflux they may give. 4. Please schedule an appt with your cardiology for a follow up. Explain we put you back on your Lasix 40 mg daily. Keep a log of your daily weight to make sure you are not gaining weight from fluid. Please take the potassium with it. 5. You will need two tests as outpatient - a thyroid ultrasound is suggested by Dr. Antonio - an Echocardiogram is suggested ; speak to your economic development manager. 6. Continue to take your nebulizers at home. Avoid using the inhalers of albuterol until you are feeling better. the nebulized albuterol works quicker in these cases. 7. If you are developing increased shortness of breath, wheezing, weight gain from fluid, difficulty breathing, come back to ER immediately Referrals: Carrington Peñaloza MD [Primary Care Provider] - Disposition: HOME - Home Medications Comprehensive Discharge Medication List: Ambulatory Orders Furosemide 40 mg PO DAILY tablet 09/30/16 Albuterol 0.083% Nebulizer [place] [Ventolin 0.083%] 1 neb NEB QID PRN 09/07/17 Budesonide/Formeterol Fumarate [SYMBICORT 160/4.5mcg -] 1 inh PO BID 09/07/17 This patient is new to me today: No Emergency Visit: Yes ED Registration Date: 09/07/17 Care time: The patient presented to the Emergency Department on the above date and was hospitalized for further evaluation of their emergent condition. Critical Care patient: No - Discharge Referral Referred to [facility] Med P.C.: No
[2017-09-09] MEDS: FUROSEMIDE 40 MG TABLET (FP) PO SCH (10:04)
[2017-09-09] MEDS: CARVEDILOL 3.125 MG TABLET (FP) PO SCH (10:04)
[2017-09-09] MEDS: POTASSIUM CHLORIDE TABS 20 MEQ TABLET.ER (FP) PO SCH (10:04)
[2017-09-09] MEDS: NIFEdipine E.R. 30 MG TABLET (FP) PO SCH (10:04)
[2017-09-09] MEDS: BUDESONIDE/FORMETEROL FUMARATE 160/4.5 mcg INHALER IH SCH (10:05)
[2017-09-09] MEDS ORDERED: PT OWN MED DRAWER 7, Y5N ONE (10:05)
[2017-09-09] MEDS: ENALAPRIL MALEATE 10 MG TABLET (FP) PO SCH (10:06)
[2017-09-09 10:29] LABS: PLATELET ESTIMATE ADEQUATE
[2017-09-09 10:34] LABS: N-TERMINAL BNP 422.64 pg/ml (5-450)
== END 2017-09-09 11:00 | disposition home or self-care (01) ==
LOC: FER 17:47 → FM/S 22:13
PROVIDERS: ADMIT Internal Medicine; ATTEND Nurse Practitioner Family
PROC: 3E0337Z Introduction of Electrolytic and Water Balance Substance into Peripheral Vein, Percutaneous Approach (ICD-10-PCS; principal; 2017-09-07)
PROC: 3E0F7GC Introduction of Other Therapeutic Substance into Respiratory Tract, Via Natural or Artificial Opening (ICD-10-PCS; 2017-09-07)
DX: J44.1 Chronic obstructive pulmonary disease with (acute) exacerbation (principal); I50.9 Heart failure, unspecified; I10 Essential (primary) hypertension; R91.8 Other nonspecific abnormal finding of lung field; R91.1 Solitary pulmonary nodule; E04.1 Nontoxic single thyroid nodule; M54.9 Dorsalgia, unspecified
CPT/HCPCS: 36415; 71046-TC-FY; 80048; 80053; 81003; 81015; 82550; 82803; 83735; 83880; 84100; 84484; 85025; 85610; 85730; 93005; 94640; 96374; 96375; 99284-25; G0378

== ENCOUNTER 2018-08-15 10:04 | Inpatient (IN) | payer OTHER ==
--- NOTE | 2018-08-15 10:39 | PDOC ---
History of Present Illness - General Chief Complaint: Shortness of Breath Stated Complaint: SOB Time Seen by Provider: 08/15/18 10:15 History Source: Patient (Patient brought in by wheelchair from Dr Herring's office because of progressive shortness of breath, exertional dyspnea ), EMS, Sibling Exam Limitations: No Limitations - History of Present Illness Timing/Duration: unsure, getting worse Severity: moderate Modifying Factors: improves with: cold therapy, rest Associated Symptoms: reports: denies symptoms Beta Fiorella Given by EMS(Core Measure): No Beta Fiorella Taken at Home(Core Measure): No Beta Fiorella Not Indicated at this Time(Core Measure): No Past History - Travel Traveled outside of the country in the last 30 days: No Close contact w/someone who was outside of country & ill: No - Past Medical History Allergies/Adverse Reactions: Allergies Allergy/AdvReac Type Severity Reaction Status Date / Time No Known Allergies Allergy Verified 08/15/18 10:33 Home Medications: Ambulatory Orders Furosemide 40 mg PO DAILY tablet 09/30/16 Omeprazole 20 mg PO DAILY #30 tablet. 09/09/17 Beclomethasone Dipropionate [Qvar] 80 mcg IH DAILY 08/15/18 Montelukast Sodium [Singulair] 10 mg PO DAILY 08/15/18 Tiotropium [place] [Spiriva] 18 mcg IH DAILY 08/15/18 Asthma: Yes COPD: Yes CHF: Yes Disorders: Yes HTN: Yes Thyroid Disease: Yes ("I get it checked every year" (not sure why)) Other medical history: obese - Surgical History Cholecystectomy: Yes (Cholecystectomy 1993) - Suicide/Smoking/Psychosocial Hx Smoking History: Never smoked Have you smoked in the past 12 months: No Hx Alcohol Use: No Drug/Substance Use Hx: No Substance Use Type: None Hx Substance Use Treatment: No Review of Systems - Review of Systems Able to Perform ROS?: Yes Is the patient limited Greek proficient: Yes Constitutional: Yes: Symptoms Reported, See HPI, Malaise HEENTM: Yes: Symptoms Reported Respiratory: Yes: See HPI, Shortness of Breath, SOB with Exertion Cardiac (ROS): Yes: See HPI Musculoskeletal: No: Symptoms Reported, See HPI, Back Pain, Gout, Joint Pain, Joint Swelling, Muscle Pain, Muscle Weakness, Neck Pain, Joint Stiffness, Other Integumentary: Yes: Other (dry skin) Psychiatric: Yes: Anxiety, Depression All Other Systems: Reviewed and Negative *Physical Exam - Physical Exam General Appearance: Yes: Nourished, Appropriately Dressed, Moderate Distress, Obese HEENT: positive: MARGOT Neck: positive: Supple. negative: Carotid bruit Respiratory/Chest: positive: Labored Respiration, Decreased Breath Sounds, Crackles Cardiovascular: positive: Regular Rate, S1, S2 Heart Score/ECG Review - ECG Intrepretation Rhythm: Regular Rhythm - QRS Poor R Wave Progression: Yes Comment:: 08/15/18 13:55 LBBB - ECG Impressions Non-specific ST Elevation: Yes Ischemic Changes: No Comment:: 08/15/18 13:55 No change when compard with a 29 [facility] 2018 [facility] ED Treatment Course - LABORATORY CBC & Chemistry Diagram: 08/15/18 10:59 08/15/18 10:59 *DC/Admit/Observation/Transfer Diagnosis at time of Disposition: COPD (chronic obstructive pulmonary disease) with acute bronchitis - Discharge Dispostion Condition at time of disposition: Guarded Decision to Admit order: Yes - Referrals - Patient Instructions - Post Discharge Activity
[2018-08-15 11:51] LABS: BASO % 1.6 % (0-2.0); EOS % 3.8 % (0-4.5); HEMATOCRIT 48.7 % (32.4-45.2); HEMOGLOBIN 16.3 GM/dl (10.7-15.3); LYMPH % 17.2 % (8-40); MCH 30.5 pg (25.7-33.7); MCHC 33.5 g/dl (32.0-36.0); MEAN PLT VOLUME 10.8 fl (7.5-11.1); MONO % 7.7 % (3.8-10.2); NEUT % 69.7 % (42.8-82.8); PLATELET COUNT 231 K/MM3 (134-434); RBC 5.35 M/mm3 (3.60-5.2); RDW 12.3 % (11.6-15.6); WHITE BLOOD COUNT 8.3 K/mm3 (4.0-10.8)
[2018-08-15 11:58] LABS: INR 1.19 (0.82-1.09); PROTHROMBIN TIME (PATIENT) 13.3 SEC (10.2-13.0)
[2018-08-15 12:09] LABS: URINE APPEARANCE Clear; URINE BILIRUBIN Negative (NEGATIVE); URINE COLOR Yellow; URINE GLUCOSE (UA) Negative (NEGATIVE); URINE KETONE Negative (NEGATIVE); URINE LEUK ESTERASE Negative (NEGATIVE); URINE NITRITE Negative (NEGATIVE); URINE PROTEIN 1+ (NEGATIVE); URINE UROBILINOGEN 0.2 (0.2-1.0)
[2018-08-15 12:24] LABS: ALBUMIN 3.9 g/dl (3.4-5.0); ALK PHOS 155 U/L (45-117); ANION GAP 6 MMOL/L (8-16); BILIRUBIN,TOTAL 0.9 mg/dL (0.2-1); BLOOD UREA NITROGEN 13 mg/dL (7-18); CHLORIDE 108 mmol/L (98-107); CO2 30 mmol/L (21-32); CREATININE 0.9 mg/dL (0.55-1.3); GLUCOSE,RANDOM 101 mg/dL (74-106); N-TERMINAL BNP 531.2 pg/ml (5-450); POTASSIUM 4.2 mmol/L (3.5-5.1); SGOT/AST 15 U/L (15-37); SGPT/ALT 20 U/L (13-61); SODIUM 143 mmol/L (136-145); TOT PROT 6.6 g/dl (6.4-8.2)
[2018-08-15 12:59] LABS: EPI CELLS 1+ /HPF; URINE BACTERIA NONE SEEN /hpf (NEGATIVE); URINE RBC 0-3 /hpf (0-3); URINE WBC 0-3 (0-5)
[2018-08-15 13:52] LABS: VENOUS PC02 52.6 mmHg (38-52); VENOUS PH 7.35 (7.32-7.42); VENOUS PO2 37.9 mmHg (28-48)
[2018-08-15] MEDS ORDERED: ALBUTEROL SO4 2.5/IPRATROPIUM 0.5 INH SOL 3 ML VIAL.NEB. NEB ONE ×2 (15:02→15:25)
[2018-08-15] MEDS ORDERED: BECLOMETHASONE DIPROPIONATE 80 MCG IH SCH (15:15)
--- NOTE | 2018-08-15 15:16 | HP ---
CHIEF COMPLAINT: Shortness of breath PCP: Dr. Antonio HISTORY OF PRESENT ILLNESS: 77 year-old female with a PMH significant for HTN, CHF, and COPD (nighttime home O2 2L), who was referred to the ED earlier today by her PCP/pulmonoloigst Dr. Antonio for worsening shortness of breath and dyspnea on exertion. ER course was notable for: (1) BP 196/92 Recent Travel: No PAST MEDICAL HISTORY: Hypertension Heart failure COPD PAST SURGICAL HISTORY: Cholecystectomy Social History: Smoking: no Alcohol: no Drugs: no Family History: mother age 78, CVAs, first age 70; father age 35, heart disease; 2 children, alive and well Allergies No Known Allergies Allergy (Verified 08/15/18 10:33) HOME MEDICATIONS: Home Medications Medication Instructions Recorded Furosemide 40 mg PO DAILY tablet 09/30/16 Omeprazole 20 mg PO DAILY #30 tablet. 09/09/17 Beclomethasone Dipropionate [Qvar] 80 mcg IH DAILY 08/15/18 Montelukast Sodium [Singulair] 10 mg PO DAILY 08/15/18 Tiotropium [place] [Spiriva] 18 mcg IH DAILY 08/15/18 REVIEW OF SYSTEMS CONSTITUTIONAL: Absent: fever, chills, diaphoresis, generalized weakness, malaise, loss of appetite, weight change HEENT: Absent: rhinorrhea, nasal congestion, throat pain, throat swelling, difficulty swallowing, mouth swelling, ear pain, eye pain, visual changes CARDIOVASCULAR: Absent: chest pain, syncope, palpitations, irregular heart rate, lightheadedness , peripheral edema RESPIRATORY: +SOB, SOTO, wheezing Absent: cough, shortness of breath, dyspnea with exertion, orthopnea, wheezing, stridor, hemoptysis GASTROINTESTINAL: Absent: abdominal pain, abdominal distension, nausea, vomiting, diarrhea, constipation, melena, hematochezia GENITOURINARY: Absent: dysuria, frequency, urgency, hesitancy, hematuria, flank pain, genital pain MUSCULOSKELETAL: Absent: myalgia, arthralgia, joint swelling, back pain, neck pain SKIN: +itchy redness right pretribial area Absent: rash, itching, pallor HEMATOLOGIC/IMMUNOLOGIC: Absent: easy bleeding, easy bruising, lymphadenopathy, frequent infections ENDOCRINE: Absent: unexplained weight gain, unexplained weight loss, heat intolerance, cold intolerance NEUROLOGIC: Absent: headache, focal weakness or paresthesias, dizziness, unsteady gait, seizure, mental status changes, bladder or bowel incontinence PSYCHIATRIC: Absent: anxiety, depression, suicidal or homicidal ideation, hallucinations. PHYSICAL EXAMINATION Vital Signs - 24 hr 08/15/18 08/15/18 08/15/18 10:05 10:59 12:26 Temperature 97.5 F L Pulse Rate 71 74 Pulse Rate [ 69 Right] Respiratory 22 H 20 Rate Blood Pressure 196/92 H Blood Pressure 188/98 H [Left Arm] O2 Sat by Pulse 97 99 100 Oximetry (%) GENERAL: Awake, alert, and fully oriented, in no acute distress. HEAD: Normal with no signs of trauma. EYES: Pupils equal, round and reactive to light, extraocular movements intact, sclera anicteric, conjunctiva clear. No lid lag. EARS, NOSE, THROAT: Ears normal, nares patent, oropharynx clear without exudates. Moist mucous membranes. LUNGS: Poor air movement, diffuse expiratory wheezing, scattered rhonchi HEART: Regular rate and rhythm, S1 and S2 ABDOMEN: Soft, nontender, not distended, normoactive bowel sounds MUSCULOSKELETAL: Normal range of motion at all joints. No bony deformities or tenderness. No CVA tenderness. UPPER EXTREMITIES: 2+ pulses, warm, well-perfused. No cyanosis. No clubbing. No peripheral edema. LOWER EXTREMITIES: 2+ pulses, warm, well-perfused. No calf tenderness. No peripheral edema. RIGHT LOWER EXT: dry, flaky skin, mild erythema NEUROLOGICAL: Cranial nerves II-XII intact. Normal speech. Laboratory Results - last 24 hr 08/15/18 08/15/18 08/15/18 10:55 10:59 10:59 WBC 8.3 RBC 5.35 H Hgb 16.3 H Hct 48.7 H MCV 91.0 MCH 30.5 MCHC 33.5 RDW 12.3 Plt Count 231 MPV 10.8 Absolute Neuts (auto) 5.9 Neutrophils % 69.7 Lymphocytes % 17.2 Monocytes % 7.7 Eosinophils % 3.8 Basophils % 1.6 PT with INR INR VBG pH 7.35 POC VBG pCO2 52.6 H POC VBG pO2 37.9 D Mixed VBG HCO3 28.1 H Sodium Potassium Chloride Carbon Dioxide Anion Gap BUN Creatinine Creat Clearance w eGFR Random Glucose Calcium Total Bilirubin AST ALT Alkaline Phosphatase Troponin I 0.05 B-Natriuretic Peptide Total Protein Albumin Urine Color Urine Appearance Urine pH Ur Specific [place] Urine Protein Urine Glucose (UA) Urine Ketones Urine Blood Urine Nitrite Urine Bilirubin Urine Urobilinogen Ur Leukocyte Esterase Urine RBC Urine WBC Ur Epithelial Cells Urine Bacteria 08/15/18 08/15/18 08/15/18 10:59 10:59 11:01 WBC RBC Hgb Hct MCV MCH MCHC RDW Plt Count MPV Absolute Neuts (auto) Neutrophils % Lymphocytes % Monocytes % Eosinophils % Basophils % PT with INR 13.3 H INR 1.19 VBG pH POC VBG pCO2 POC VBG pO2 Mixed VBG HCO3 Sodium 143 Potassium 4.2 Chloride 108 H Carbon Dioxide 30 Anion Gap 6 L BUN 13 Creatinine 0.9 Creat Clearance w eGFR > 60 Random Glucose 101 Calcium 9.0 Total Bilirubin 0.9 AST 15 ALT 20 Alkaline Phosphatase 155 H Troponin I B-Natriuretic Peptide 531.2 H Total Protein 6.6 Albumin 3.9 Urine Color Yellow Urine Appearance Clear Urine pH 7.0 Ur Specific [place] 1.020 Urine Protein 1+ H Urine Glucose (UA) Negative Urine Ketones Negative Urine Blood Trace-intact H Urine Nitrite Negative Urine Bilirubin Negative Urine Urobilinogen 0.2 Ur Leukocyte Esterase Negative Urine RBC 0-3 Urine WBC 0-3 Ur Epithelial Cells 1+ Urine Bacteria None seen ASSESSMENT/PLAN 77 year-old female with a PMH significant for HTN, COPD, and diastolic heart failure. Placed on observation for COPD exacerbation. Acute on chronic COPD --afebrile, no leukocytosis, CXR no acute process --duonebs QID --IV steroids --continue Symbicort, Singulair --daily peak flows --flu, urine antigens ordered; observe off antibiotics --pulmonary following Diastolic heart failure --appears euvolemic, CXR clear and no lower extremity edema --BNP mildly elevated --last echo available 2011; repeat echo in am --continue home lasix PO 40mg daily Hypertension --BP elevated in ED --TSH wnl --continue enalapril, nifedipine, carvedilol Dry skin Right lower extremity erythema --dry flaky skin on both legs; right pre-tibial area with very mild erythema which patient reports is itchy --aquaphor to legs; monitor closely for s/s of cellulitis FEN Fluids: PO intake adequate Electrolytes: replete as indicated Nutrition: low sodium DVT prophylaxis: subq heparin Physical therapy Pre post Dispo: continues to require inpatient care. Full code. Visit type - Emergency Visit Emergency Visit: Yes ED Registration Date: 08/15/18 Care time: The patient presented to the Emergency Department on the above date and was hospitalized for further evaluation of their emergent condition. - New Patient This patient is new to me today: Yes Date on this admission: 08/15/18 - Critical Care Critical Care patient: No
[2018-08-15] MEDS ORDERED: PATIENT'S OWN MEDICATION (NON-FORMULARY) (Tiotropium Bromide [Spiriva] 18 MCG) IH SCH (15:30)
[2018-08-15] MEDS ORDERED: ALBUTEROL SO4 0.083% IH SOL 2.5 MG/3 ML VIAL.NEB. NEB PRN (15:46)
[2018-08-15 15:55] VITALS: BMI 42.0
--- NOTE | 2018-08-15 15:57 | CON.PULM ---
Consult Consult Specialty:: PULMONARY Referred by:: RUTH Reason for Consultation:: WHEEZE/SOB - History of Present Illness Chief Complaint: WHEEZE/SOB History of Present Illness: 76 NEVER SMOKER LIVES ALONE RETIRED PRESENTS WITH SOTO WORSENING OVER PAST 1 WEEK. SHE COMPLAINS OF COUGH WITH SCANT SPUTUM,OCCASIONAL RIGHT SIDED CHEST DISCOMFORT,DENIES PALPS, SYNCOPE, USUALLY NONCOMPLIANT WITH DAILY LASIX. PATIENT HAS A LARGE COMPLEX MASS IN THYROID FOR WHICH AN ULTRASOUND WAS DONE IN 2017. THE IMAGES REVEAL AN ENLARGING COMPLEX MASS FOR WHICH BX WAS SUGGESTED. PATIENT DOES NOT WANT TO HAVE "ANOTHER"NEEDLE BIOPSY. IN VIEW OF MULTIPLE STABLE LUNG NODULES OF UNKNOWN ETIOLOGY WILL REQUEST A REPEAT US THYROID AND ENCOURAGE ANOTHER DIAGNOSTIC PROCEDURE. - History Source History Provided By: Patient, Family Member, Medical Record Limitations to Obtaining History: No Limitations - Past Medical History ACUTE CARE NURSE PRACTITIONER: No: Alzheimer's Cardio/Vascular: Yes: CHF. No: AFIB Pulmonary: Yes: Asthma, COPD, Other (CHRONIC STABLE PULMONARY NODULES) Gastrointestinal: No: Ascites Hepatobiliary: No: Cirrhosis Renal/: No: Renal Failure Reproductive: Yes: Postmenopausal ...: No Heme/Onc: No: Anemia Infectious Disease: No: AIDS Musculoskeletal: Yes: Chronic low back pain Endocrine: Yes: Other (THYROID MASS) - Past Surgical History Past Surgical History: Yes: Cholecystectomy - Alcohol/Substance Use Hx Alcohol Use: No History of Substance Use: reports: None - Smoking History Smoking history: Never smoked Have you smoked in the past 12 months: No - Social History Usual Living Arrangement: Alone ADL: Independent Occupation: Retired- Benefits Counselor for [employer] Place of : [facility] History of Recent Travel: No Home Medications - Allergies Allergies/Adverse Reactions: Allergies Allergy/AdvReac Type Severity Reaction Status Date / Time No Known Allergies Allergy Verified 08/15/18 10:33 - Home Medications Home Medications: Ambulatory Orders Furosemide 40 mg PO DAILY tablet 09/30/16 Omeprazole 20 mg PO DAILY #30 tablet. 09/09/17 Beclomethasone Dipropionate [Qvar] 80 mcg IH DAILY 08/15/18 Montelukast Sodium [Singulair] 10 mg PO DAILY 08/15/18 Tiotropium [place] [Spiriva] 18 mcg IH DAILY 08/15/18 Family Disease History - Family Disease History Family History: Unremarkable Review of Systems - Review of Systems Constitutional: denies: Fever Eyes: denies: Blurred Vision HENT: denies: Difficult Swallowing Neck: denies: Decreased ROM Cardiovascular: reports: Shortness of Breath Respiratory: reports: Cough, Exercise Intolerance, SOB, SOB on Exertion, Wheezing. denies: Hemoptysis Gastrointestinal: denies: Abdominal Pain Genitourinary: denies: Burning Breasts: reports: No Symptoms Reported Musculoskeletal: reports: No Symptoms Integumentary: reports: No Symptoms Physical Exam Vital Sings: Vital Signs Temperature 97 F L 08/15/18 15:37 Pulse Rate 69 08/15/18 12:26 Respiratory Rate 08/15/18 15:37 Blood Pressure 188/98 H 08/15/18 12:26 O2 Sat by Pulse Oximetry (%) 100 08/15/18 12:26 Constitutional: Yes: Calm Eyes: Yes: EOM Intact HENT: Yes: Normocephalic Neck: Yes: Trachea Midline Cardiovascular: Yes: Regular Rate and Rhythm Respiratory: Yes: Rales, Rhonchi, Wheezes Gastrointestinal: Yes: Normal Bowel Sounds, Abdomen, Obese Musculoskeletal: Yes: WNL Extremities: Yes: WNL Neurological: Yes: Alert Labs: CBC, BMP 08/15/18 10:59 08/15/18 10:59 REST REVIEWED Imaging - Results Chest X-ray: Report Reviewed, Image Reviewed Problem List - Problems (1) Thyroid mass of unclear etiology Code(s): E07.89 - OTHER SPECIFIED DISORDERS OF THYROID (2) COPD (chronic obstructive pulmonary disease) with acute bronchitis Code(s): J44.0 - CHRONIC OBSTRUCTIVE PULMON DISEASE W ACUTE LOWER RESP INFCT; J20.9 - ACUTE BRONCHITIS, UNSPECIFIED (3) Accelerated hypertension Code(s): I10 - ESSENTIAL (PRIMARY) HYPERTENSION (4) Lung nodule < 6cm on CT Code(s): R91.1 - SOLITARY PULMONARY NODULE (5) CHF (congestive heart failure) Code(s): I50.9 - HEART FAILURE, UNSPECIFIED Assessment/Plan AGREE WITH DUONEB/SYMBICORT/SINGULAIR/SOLUMEDROL/O2/CHECK PEAK FLOW WOULD CHECK INFLUENZA/URINE ANTIGENS CONSIDER ECHO Etienne DWYER MD
[2018-08-15] MEDS ORDERED: IPRATROPIUM BR 0.02% 0.5 MG/2.5 ML VIAL.NEB. NEB SCH (16:00)
[2018-08-15] MEDS: methylPREDNISolone NA SUCC 40 MG/1 ML VIAL IVPUSH SCH ×2 (16:30→20:57)
[2018-08-15] MEDS: ALBUTEROL SO4 2.5/IPRATROPIUM 0.5 INH SOL 3 ML VIAL.NEB. NEB SCH ×2 (16:30→20:57)
[2018-08-15] MEDS ORDERED: guaiFENesin/D-METHORPHAN HB 10 ML UNIT-DOSE CUPS PO PRN (20:35)
[2018-08-15] MEDS: BENZOCAINE/MENTH/CETYLPYRD CL 1 EACH LOZENGE MM PRN (20:58)
[2018-08-15] MEDS ORDERED: PT OWN MED DRAWER 7, Y5N ONE (21:46)
[2018-08-15] MEDS: CARVEDILOL 3.125 MG TABLET (FP) PO SCH (21:50)
[2018-08-15] MEDS: HEPARIN NA (PORCINE) 5,000 UNITS/ML 1ML VIAL SQ SCH (21:50)
[2018-08-15] MEDS: BUDESONIDE/FORMETEROL FUMARATE 160/4.5 mcg INHALER IH SCH (21:51)
[2018-08-15] MEDS ORDERED: ENALAPRIL MALEATE 20 MG PO SCH (22:00)
[2018-08-16] MEDS: methylPREDNISolone NA SUCC 40 MG/1 ML VIAL IVPUSH SCH ×3 (02:35→16:21)
[2018-08-16] MEDS: HEPARIN NA (PORCINE) 5,000 UNITS/ML 1ML VIAL SQ SCH ×3 (06:57→21:25)
--- NOTE | 2018-08-16 07:39 | PN ---
Physical Exam: SUBJECTIVE: Patient seen and examined sitting on edge of bed. +cough OBJECTIVE: Vital Signs Period Temp Pulse Resp BP Sys/Pizarro Pulse Ox Last 24 Hr 97 F-98.0 F 58-74 18-22 158-196/68-98 96-100 GENERAL: Awake, alert, and fully oriented, in no acute distress. LUNGS: Diminished breath sounds HEART: Regular rate and rhythm, S1 and S2 ABDOMEN: Soft, nontender, not distended, normoactive bowel sounds UPPER EXTREMITIES: 2+ pulses, warm, well-perfused. No cyanosis. No clubbing. No peripheral edema. LOWER EXTREMITIES: 2+ pulses, warm, well-perfused. No calf tenderness. No peripheral edema. RIGHT LOWER EXT: dry, flaky skin, mild erythema NEUROLOGICAL: Cranial nerves II-XII intact. Normal speech. Laboratory Results - last 24 hr 08/15/18 08/15/18 08/15/18 10:55 10:59 10:59 WBC 8.3 RBC 5.35 H Hgb 16.3 H Hct 48.7 H MCV 91.0 MCH 30.5 MCHC 33.5 RDW 12.3 Plt Count 231 MPV 10.8 Absolute Neuts (auto) 5.9 Neutrophils % 69.7 Lymphocytes % 17.2 Monocytes % 7.7 Eosinophils % 3.8 Basophils % 1.6 PT with INR INR VBG pH 7.35 POC VBG pCO2 52.6 H POC VBG pO2 37.9 D Mixed VBG HCO3 28.1 H Sodium Potassium Chloride Carbon Dioxide Anion Gap BUN Creatinine Creat Clearance w eGFR Random Glucose Calcium Total Bilirubin AST ALT Alkaline Phosphatase Troponin I 0.05 B-Natriuretic Peptide Total Protein Albumin TSH Urine Color Urine Appearance Urine pH Ur Specific [place] Urine Protein Urine Glucose (UA) Urine Ketones Urine Blood Urine Nitrite Urine Bilirubin Urine Urobilinogen Ur Leukocyte Esterase Urine RBC Urine WBC Ur Epithelial Cells Urine Bacteria Influenza A (Rapid) Influenza B (Rapid) 08/15/18 08/15/18 08/15/18 10:59 10:59 11:01 WBC RBC Hgb Hct MCV MCH MCHC RDW Plt Count MPV Absolute Neuts (auto) Neutrophils % Lymphocytes % Monocytes % Eosinophils % Basophils % PT with INR 13.3 H INR 1.19 VBG pH POC VBG pCO2 POC VBG pO2 Mixed VBG HCO3 Sodium 143 Potassium 4.2 Chloride 108 H Carbon Dioxide 30 Anion Gap 6 L BUN 13 Creatinine 0.9 Creat Clearance w eGFR > 60 Random Glucose 101 Calcium 9.0 Total Bilirubin 0.9 AST 15 ALT 20 Alkaline Phosphatase 155 H Troponin I B-Natriuretic Peptide 531.2 H Total Protein 6.6 Albumin 3.9 TSH Urine Color Yellow Urine Appearance Clear Urine pH 7.0 Ur Specific [place] 1.020 Urine Protein 1+ H Urine Glucose (UA) Negative Urine Ketones Negative Urine Blood Trace-intact H Urine Nitrite Negative Urine Bilirubin Negative Urine Urobilinogen 0.2 Ur Leukocyte Esterase Negative Urine RBC 0-3 Urine WBC 0-3 Ur Epithelial Cells 1+ Urine Bacteria None seen Influenza A (Rapid) Influenza B (Rapid) 08/15/18 08/15/18 13:00 18:30 WBC RBC Hgb Hct MCV MCH MCHC RDW Plt Count MPV Absolute Neuts (auto) Neutrophils % Lymphocytes % Monocytes % Eosinophils % Basophils % PT with INR INR VBG pH POC VBG pCO2 POC VBG pO2 Mixed VBG HCO3 Sodium Potassium Chloride Carbon Dioxide Anion Gap BUN Creatinine Creat Clearance w eGFR Random Glucose Calcium Total Bilirubin AST ALT Alkaline Phosphatase Troponin I B-Natriuretic Peptide Total Protein Albumin TSH 2.42 Urine Color Urine Appearance Urine pH Ur Specific [place] Urine Protein Urine Glucose (UA) Urine Ketones Urine Blood Urine Nitrite Urine Bilirubin Urine Urobilinogen Ur Leukocyte Esterase Urine RBC Urine WBC Ur Epithelial Cells Urine Bacteria Influenza A (Rapid) Negative Influenza B (Rapid) Negative Active Medications Generic Name Dose Route Start Last Admin Trade Name Freq PRN Reason Stop Dose Admin Albuterol Sulfate 1 amp 08/15/18 15:46 Ventolin 0.083% Nebulizer Soln - NEB Q1H PRN SHORT OF BREATH/WHEEZING Albuterol/Ipratropium 1 amp 08/15/18 16:00 08/15/18 20:57 Duoneb - NEB 1 amp RQID ELIJAH Administration Benzocaine/Menthol 1 each 08/15/18 20:35 08/15/18 20:58 Cepacol Lozenge - MM 1 each Q2H PRN Administration SORE THROAT Budesonide/Formoterol Fumarate 2 puff 08/15/18 22:00 08/15/18 21:51 Symbicort 160/4.5mcg - IH 2 puff BID ELIJAH Administration Carvedilol 3.125 mg 08/15/18 22:00 08/15/18 21:50 Coreg - PO 3.125 mg BID ELIJAH Administration Furosemide 40 mg 08/16/18 10:00 Lasix - PO DAILY ELIJAH Guaifenesin 10 ml 08/15/18 20:35 08/16/18 00:04 Robitussin Dm - PO 10 ml Q6H PRN Administration COUGH Heparin Sodium (Porcine) 5,000 unit 08/15/18 22:00 08/16/18 06:57 Heparin - SQ Not Given TID ELIJAH Methylprednisolone Sodium Succinate 40 mg 08/15/18 16:15 08/16/18 02:35 Solu-Medrol - IVPUSH 40 mg Q6H-IV ELIJAH Administration Montelukast Sodium 10 mg 08/16/18 22:00 Singulair - PO HS ELIJAH Nifedipine 30 mg 08/16/18 10:00 Procardia Xl - PO DAILY ELIJAH ASSESSMENT/PLAN: 77 year-old female with a PMH significant for HTN, COPD, and diastolic heart failure. Placed on observation for COPD exacerbation. Acute on chronic COPD --Pre post today: 94% on room air at rest, 96% on room air with flat surface walking --afebrile, no leukocytosis, CXR no acute process; flu negative, urine antigens negative; observe off antibiotics --duonebs QID --IV steroids --continue Symbicort, Singulair --daily peak flows --pulmonary following Diastolic heart failure --appears euvolemic, CXR clear and no lower extremity edema --BNP mildly elevated --last echo available 2011; echo pending --continue home lasix PO 40mg daily Hypertension --BP elevated --TSH wnl --continue enalapril, nifedipine, carvedilol Dry skin Right lower extremity erythema --dry flaky skin on both legs; right pre-tibial area with very mild erythema which patient reports is itchy --aquaphor to legs; monitor closely for s/s of cellulitis FEN Fluids: PO intake adequate Electrolytes: replete as indicated Nutrition: low sodium DVT prophylaxis: subq heparin Physical therapy Dispo: continues to require inpatient care. Full code. Visit type - Emergency Visit Emergency Visit: Yes ED Registration Date: 08/15/18 Care time: The patient presented to the Emergency Department on the above date and was hospitalized for further evaluation of their emergent condition. - New Patient This patient is new to me today: No - Critical Care Critical Care patient: No
[2018-08-16 08:37] LABS: BASO % 0.4 % (0-2.0); HEMATOCRIT 47.2 % (32.4-45.2); HEMOGLOBIN 15.4 GM/dl (10.7-15.3); LYMPH % 8.8 % (8-40); MCH 29.9 pg (25.7-33.7); MCHC 32.6 g/dl (32.0-36.0); MEAN CELL VOLUME 91.8 fl (80-96); MEAN PLT VOLUME 10.1 fl (7.5-11.1); MONO % 3.6 % (3.8-10.2); NEUT % 87.2 % (42.8-82.8); RBC 5.15 M/mm3 (3.60-5.2); RDW 12.2 % (11.6-15.6)
[2018-08-16 08:45] LABS: ALBUMIN 3.7 g/dl (3.4-5.0); ALK PHOS 126 U/L (45-117); ANION GAP 9 MMOL/L (8-16); BILIRUBIN,TOTAL 0.7 mg/dl (0.2-1); BLOOD UREA NITROGEN 18 mg/dl (7-18); CALCIUM 9.2 mg/dl (8.5-10); CHLORIDE 105 mmol/L (98-107); CO2 25 mmol/L (21-32); CREATININE 0.7 mg/dl (0.55-1.3); GLUCOSE,RANDOM 173 mg/dl (74-106); POTASSIUM 4.1 mmol/L (3.5-5.1); SGOT/AST 18 U/L (15-37); SGPT/ALT 15 U/L (13-61); SODIUM 139 mmol/L (136-145); TOT PROT 6.2 g/dl (6.4-8.2)
[2018-08-16 09:01] LABS: PLATELET COUNT 208 K/MM3 (134-434)
[2018-08-16] MEDS ORDERED: PT OWN MED DRAWER 7, Y5N ONE ×2 (09:27→21:27)
--- NOTE | 2018-08-16 09:31 | PN ---
Progress Note, Physician History of Present Illness: pulmonary alert,still congested ,+ cough - Current Medication List Current Medications: Active Medications Albuterol Sulfate (Ventolin 0.083% Nebulizer Soln -) 1 amp NEB Q1H PRN PRN Reason: SHORT OF BREATH/WHEEZING Albuterol/Ipratropium (Duoneb -) 1 amp NEB RQID [facility] Last Admin: 08/15/18 20:57 Dose: 1 amp Benzocaine/Menthol (Cepacol Lozenge -) 1 each MM Q2H PRN PRN Reason: SORE THROAT Last Admin: 08/15/18 20:58 Dose: 1 each Budesonide/Formoterol Fumarate (Symbicort 160/4.5mcg -) 2 puff IH BID [facility] Last Admin: 08/15/18 21:51 Dose: 2 puff Carvedilol (Coreg -) 3.125 mg PO BID [facility] Last Admin: 08/15/18 21:50 Dose: 3.125 mg Emollient Ointment (Aquaphor -) 1 applic TP BID [facility] Furosemide (Lasix -) 40 mg PO DAILY [facility] Guaifenesin (Robitussin Dm -) 10 ml PO Q6H PRN PRN Reason: COUGH Last Admin: 08/16/18 00:04 Dose: 10 ml Heparin Sodium (Porcine) (Heparin -) 5,000 unit SQ TID [facility] Last Admin: 08/16/18 06:57 Dose: Not Given Methylprednisolone Sodium Succinate (Solu-Medrol -) 40 mg IVPUSH Q6H-IV [facility] Last Admin: 08/16/18 02:35 Dose: 40 mg Montelukast Sodium (Singulair -) 10 mg PO HS [facility] Nifedipine (Procardia Xl -) 30 mg PO DAILY [facility] - Objective Vital Signs: Vital Signs Temperature 97.6 F 08/16/18 06:00 Pulse Rate 58 L 08/16/18 06:00 Respiratory Rate 18 08/16/18 07:19 Blood Pressure 175/81 H 08/16/18 06:00 O2 Sat by Pulse Oximetry (%) 96 08/16/18 08:25 Constitutional: Yes: Well Nourished, Calm Eyes: Yes: WNL HENT: Yes: WNL Neck: Yes: WNL Cardiovascular: Yes: Regular Rate and Rhythm, S1, S2 Respiratory: Yes: Wheezes (scattereed rosy wheezes) Gastrointestinal: Yes: Normal Bowel Sounds Extremities: Yes: WNL Edema: Yes Edema: LLE: Trace, RLE: Trace Labs: CBC, BMP 08/16/18 07:15 08/16/18 07:15 INR, PTT INR 1.19 (0.82-1.09) 08/15/18 11:01 Assessment/Plan Problem List - Problems (1) Thyroid mass of unclear etiology Code(s): E07.89 - OTHER SPECIFIED DISORDERS OF THYROID (2) COPD (chronic obstructive pulmonary disease) with acute bronchitis Code(s): J44.0 - CHRONIC OBSTRUCTIVE PULMON DISEASE W ACUTE LOWER RESP INFCT; J20.9 - ACUTE BRONCHITIS, UNSPECIFIED (3) Accelerated hypertension Code(s): I10 - ESSENTIAL (PRIMARY) HYPERTENSION (4) Lung nodule < 6cm on CT Code(s): R91.1 - SOLITARY PULMONARY NODULE (5) CHF (congestive heart failure) Code(s): I50.9 - HEART FAILURE, UNSPECIFIED Assessment/Plan INHALED BRONCHODILATORS O2 MEDROL SAME DOSE MONITOR PEAK FLOW ECHO DR CROWDER
[2018-08-16] MEDS: ALBUTEROL SO4 2.5/IPRATROPIUM 0.5 INH SOL 3 ML VIAL.NEB. NEB SCH ×4 (09:35→21:41)
[2018-08-16] MEDS: MINERAL OIL/PET HY-PHL TOPICAL OINTMENT 454 GM JAR TP SCH ×2 (09:39→21:41)
[2018-08-16] MEDS: CARVEDILOL 3.125 MG TABLET (FP) PO SCH ×2 (09:40→21:41)
[2018-08-16] MEDS: BUDESONIDE/FORMETEROL FUMARATE 160/4.5 mcg INHALER IH SCH ×2 (09:40→21:41)
[2018-08-16] MEDS: FUROSEMIDE 40 MG TABLET (FP) PO SCH (09:40)
[2018-08-16] MEDS ORDERED: NIFEdipine E.R. 30 MG TABLET (FP) PO SCH (10:00)
[2018-08-16] MEDS ORDERED: NIFEdipine E.R. 30 MG TABLET (FP) PO STA (10:53)
--- NOTE | 2018-08-16 14:04 | EKG ---
Test Reason : Blood Pressure : / mmHG Vent. Rate : 067 BPM Atrial Rate : 067 BPM P-R Int : 208 ms QRS Dur : 136 ms QT Int : 454 ms P-R-T Axes : 000 -22 116 degrees QTc Int : 479 ms NORMAL SINUS RHYTHM LEFT BUNDLE BRANCH BLOCK ABNORMAL ECG WHEN COMPARED WITH ECG OF 07-SEP-2017 19:13, NO SIGNIFICANT CHANGE WAS FOUND Confirmed by BRIANNA ALONZO MD ([id number]) on 08/16/2018 2:04:11 PM Referred By: RACHELLE NELSON Confirmed By:BRIANNA ALONZO MD
--- NOTE | 2018-08-16 15:41 | ECHO ---
Name: CARLOS BROWN Exam:Adult Echocardiogram Study Date: 08/16/2018 11:26 AM Age: 77 yrs Reason For Study: SOB Height: 63 in Weight: 236 lb BSA: 2.1 m2 MMode/2D Measurements & Calculations IVSd: 1.3 cm Ao root diam: 2.8 cm LVIDd: 4.9 cm LA dimension: 3.2 cm LVIDs: 3.5 cm LVPWd: 1.1 cm EDV(Teich): 115.0 ml LVOT diam: 2.1 cm ESV(Teich): 52.3 ml Doppler Measurements & Calculations MV E max nely: 61.2 cm/sec Ao V2 max: 175.0 cm/sec MV A max nely: 130.2 cm/sec Ao max P.3 mmHg MV E/A: 0.47 Ao V2 mean: 133.8 cm/sec Ao mean P.6 mmHg Ao V2 VTI: 43.9 cm ANTHONY(I,D): 1.8 cm2 ANTHONY(V,D): 1.7 cm2 LV V1 max P.2 mmHg SV(LVOT): 77.9 ml LV V1 mean P.6 mmHg LV V1 max: 88.8 cm/sec LV V1 mean: 59.5 cm/sec LV V1 VTI: 23.3 cm Procedure A complete two-dimensional transthoracic echocardiogram was performed (2D, M-mode, Doppler and color flow Doppler). The study was technically difficult with many images being suboptimal in quality. Left Ventricle The left ventricular size, thickness and function are normal. The left ventricular ejection fraction is normal. Ejection Fraction = 55-60%. Regional wall motion abnormalities cannot be excluded due to limi ramez visualization. Right Ventricle The right ventricle is normal in size and function. Atria Normal left and right atrial size and function. Mitral Valve There is no mitral regurgitation noted. Tricuspid Valve There is trace tricuspid regurgitation. There was insufficient TR detected to calculate RV systolic p ressure. Aortic Valve No hemodynamically significant valvular aortic stenosis. No aortic regurgitation is present. Pulmonic Valve There is no pulmonic valvular regurgitation. Great Vessels The aortic root is normal size. Pericardium/Pleura There is no pericardial effusion. Interpretation Summary The study was technically difficult with many images being suboptimal in quality. The left ventricular size, thickness and function are normal The right ventricle is normal in size and function. There is trace tricuspid regurgitation. MD Hemanth Miles 08/16/2018 03:41 PM
[2018-08-16] MEDS: BENZOCAINE/MENTH/CETYLPYRD CL 1 EACH LOZENGE MM PRN (21:42)
[2018-08-16] MEDS ORDERED: MONTELUKAST NA 10 MG TABLET PO SCH (22:00)
[2018-08-17] MEDS: BENZOCAINE/MENTH/CETYLPYRD CL 1 EACH LOZENGE MM PRN (03:01)
[2018-08-17] MEDS: HEPARIN NA (PORCINE) 5,000 UNITS/ML 1ML VIAL SQ SCH (05:37)
[2018-08-17] MEDS ORDERED: methylPREDNISolone NA SUCC 40 MG/1 ML VIAL IVPUSH SCH (06:00)
--- NOTE | 2018-08-17 07:22 | PN ---
Progress Note, Physician History of Present Illness: PULMONARY - Current Medication List Current Medications: Active Medications Albuterol Sulfate (Ventolin 0.083% Nebulizer Soln -) 1 amp NEB Q1H PRN PRN Reason: SHORT OF BREATH/WHEEZING Last Admin: 08/17/18 02:58 Dose: 1 amp Albuterol/Ipratropium (Duoneb -) 1 amp NEB RQID [facility] Last Admin: 08/16/18 21:41 Dose: 1 amp Benzocaine/Menthol (Cepacol Lozenge -) 1 each MM Q2H PRN PRN Reason: SORE THROAT Last Admin: 08/17/18 03:01 Dose: 1 each Budesonide/Formoterol Fumarate (Symbicort 160/4.5mcg -) 2 puff IH BID [facility] Last Admin: 08/16/18 21:41 Dose: 2 puff Carvedilol (Coreg -) 3.125 mg PO BID [facility] Last Admin: 08/16/18 21:41 Dose: 3.125 mg Emollient Ointment (Aquaphor -) 1 applic TP BID [facility] Last Admin: 08/16/18 21:41 Dose: 1 applic Furosemide (Lasix -) 40 mg PO DAILY [facility] Last Admin: 08/16/18 09:40 Dose: 40 mg Guaifenesin (Robitussin Dm -) 10 ml PO Q6H PRN PRN Reason: COUGH Last Admin: 08/16/18 00:04 Dose: 10 ml Heparin Sodium (Porcine) (Heparin -) 5,000 unit SQ TID [facility] Last Admin: 08/17/18 05:37 Dose: Not Given Methylprednisolone Sodium Succinate (Solu-Medrol -) 40 mg IVPUSH BID@0600,1800 [facility] Last Admin: 08/17/18 05:40 Dose: 40 mg Montelukast Sodium (Singulair -) 10 mg PO HS [facility] Last Admin: 08/16/18 21:41 Dose: 10 mg Nifedipine (Procardia Xl -) 60 mg PO DAILY [facility] - Objective Vital Signs: Vital Signs Temperature 97.5 F L 08/17/18 06:00 Pulse Rate 63 08/17/18 06:00 Respiratory Rate 18 08/17/18 06:00 Blood Pressure 138/67 08/17/18 06:00 O2 Sat by Pulse Oximetry (%) 96 08/17/18 06:00 Labs: CBC, BMP 08/16/18 07:15 08/16/18 07:15 INR, PTT INR 1.19 (0.82-1.09) 08/15/18 11:01 Assessment/Plan Problem List - Problems (1) Thyroid mass of unclear etiology Code(s): E07.89 - OTHER SPECIFIED DISORDERS OF THYROID (2) COPD (chronic obstructive pulmonary disease) with acute bronchitis Code(s): J44.0 - CHRONIC OBSTRUCTIVE PULMON DISEASE W ACUTE LOWER RESP INFCT; J20.9 - ACUTE BRONCHITIS, UNSPECIFIED (3) Accelerated hypertension Code(s): I10 - ESSENTIAL (PRIMARY) HYPERTENSION (4) Lung nodule < 6cm on CT Code(s): R91.1 - SOLITARY PULMONARY NODULE (5) CHF (congestive heart failure) Code(s): I50.9 - HEART FAILURE, UNSPECIFIED Assessment/Plan INHALED BRONCHODILATORS O2 MEDROL MONITOR PEAK FLOW DR CROWDER
--- NOTE | 2018-08-17 08:22 | DS ---
Physical Exam: SUBJECTIVE: Patient seen and examined OBJECTIVE: Vital Signs Period Temp Pulse Resp BP Sys/Pizarro Pulse Ox Last 24 Hr 97.5 F-98.2 F 62-81 18-20 132-190/51-87 93-98 PHYSICAL EXAM GENERAL: The patient is awake, alert, and fully oriented, in no acute distress. HEAD: Normal with no signs of trauma. EYES: PERRL, extraocular movements intact, sclera anicteric, conjunctiva clear. ENT: Ears normal, nares patent, oropharynx clear without exudates, moist mucous membranes. NECK: Trachea midline, full range of motion, supple. LUNGS: Breath sounds equal, clear to auscultation bilaterally, no wheezes, no crackles, no accessory muscle use. HEART: Regular rate and rhythm, S1, S2 without murmur, rub or gallop. ABDOMEN: Soft, nontender, nondistended, normoactive bowel sounds, no guarding, no rebound, no hepatosplenomegaly, no masses. EXTREMITIES: 2+ pulses, warm, well-perfused, no edema. NEUROLOGICAL: Cranial nerves II through XII grossly intact. Normal speech, gait not observed. PSYCH: Normal mood, normal affect. SKIN: Warm, dry, normal turgor, no rashes or lesions noted. LABS Laboratory Results - last 24 hr 08/16/18 08/16/18 07:15 07:15 WBC 8.0 RBC 5.15 Hgb 15.4 H Hct 47.2 H MCV 91.8 MCH 29.9 MCHC 32.6 RDW 12.2 Plt Count 208 MPV 10.1 Absolute Neuts (auto) 7.0 Neutrophils % 87.2 H Lymphocytes % 8.8 Monocytes % 3.6 L Eosinophils % 0.0 Basophils % 0.4 Sodium 139 Potassium 4.1 Chloride 105 Carbon Dioxide 25 Anion Gap 9 BUN 18 Creatinine 0.7 Creat Clearance w eGFR > 60 Random Glucose 173 H Calcium 9.2 Magnesium 2.0 Total Bilirubin 0.7 AST 18 ALT 15 Alkaline Phosphatase 126 H Total Protein 6.2 L Albumin 3.7 HOSPITAL COURSE: Date of Admission:08/16/18 Date of Discharge: 08/17/18 Morbid obesity Minutes to complete discharge: 35 Discharge Summary Reason For Visit: CHRONIC OBSTRUCTIVE PULMONARY DISEASE Current Active Problems COPD (chronic obstructive pulmonary disease) with acute bronchitis (Acute) Thyroid mass of unclear etiology (Acute) Condition: Improved - Instructions Diet, Activity, Other Instructions: Your blood pressure was elevated during your hospital stay. We increased your ProcardiaXL dose from 30mg daily to 60mg daily. We recommend you continue this increased dose until you see Dr. Montesinos again. He will reasses your blood pressure and need for medication. You should see Dr. Antonio within one week of your discharge. Two prescriptions have been sent to your pharmacy: 1. Prednisone taper - take as directed and be sure to finish all the medication 2. Procardia XL 60mg - take as directed Return to the emergency department for any new or worsening symptoms. Referrals: Juan Diego Antonio MD [Staff Physician] - Disposition: HOME - Home Medications Comprehensive Discharge Medication List: Ambulatory Orders Furosemide 40 mg PO DAILY tablet 09/30/16 Omeprazole 20 mg PO DAILY #30 tablet. 09/09/17 Beclomethasone Dipropionate [Qvar] 80 mcg IH DAILY 08/15/18 Montelukast Sodium [Singulair] 10 mg PO DAILY 08/15/18 Tiotropium Ethel [Spiriva] 18 mcg IH DAILY 08/15/18 This patient is new to me today: No Emergency Visit: Yes ED Registration Date: 08/16/18 Care time: The patient presented to the Emergency Department on the above date and was hospitalized for further evaluation of their emergent condition. Critical Care patient: No - Discharge Referral [facility]erred [facility] Med P.C[facility] No
[2018-08-17] MEDS: ALBUTEROL SO4 2.5/IPRATROPIUM 0.5 INH SOL 3 ML VIAL.NEB. NEB SCH (08:53)
[2018-08-17] MEDS ORDERED: NIFEdipine E.R 60 MG TABLET (UD) PO SCH (10:00)
[2018-08-17] MEDS ORDERED: PT OWN MED DRAWER 7, Y5N ONE (10:03)
[2018-08-17] MEDS: BUDESONIDE/FORMETEROL FUMARATE 160/4.5 mcg INHALER IH SCH (10:09)
[2018-08-17] MEDS: MINERAL OIL/PET HY-PHL TOPICAL OINTMENT 454 GM JAR TP SCH (10:09)
[2018-08-17] MEDS: CARVEDILOL 3.125 MG TABLET (FP) PO SCH (10:09)
[2018-08-17] MEDS: FUROSEMIDE 40 MG TABLET (FP) PO SCH (10:09)
[2018-08-17 10:38] VITALS: BP 136/62; PULSE 68; TEMP 97.8
[2018-08-17] MEDS ORDERED: predniSONE 20 MG TABLET (UD) PO ONE (11:15)
== END 2018-08-17 11:40 | disposition home or self-care (01) | DRG 191 ==
LOC: FER 10:04 → UNDOADMOB 13:33 → INTOOBSV 13:33 → FM/S 13:33 → OBSVTOIN 08-16 13:16
PROVIDERS: ADMIT Internal Medicine; ATTEND Nurse Practitioner Acute Care
PROC: 3E0F7GC Introduction of Other Therapeutic Substance into Respiratory Tract, Via Natural or Artificial Opening (ICD-10-PCS; principal; 2018-08-16)
DX: J44.1 Chronic obstructive pulmonary disease with (acute) exacerbation (principal); I50.32 Chronic diastolic (congestive) heart failure; Z68.41 Body mass index [BMI] 40.0-44.9, adult; E66.01 Morbid (severe) obesity due to excess calories; I11.0 Hypertensive heart disease with heart failure; J44.0 Chronic obstructive pulmonary disease with (acute) lower respiratory infection; J20.9 Acute bronchitis, unspecified; I44.7 Left bundle-branch block, unspecified; L85.3 Xerosis cutis; M54.5 Low back pain; R91.1 Solitary pulmonary nodule; E07.89 Other specified disorders of thyroid
CPT/HCPCS: 36415; 71046-TC-FY; 71250-TC; 80053; 81003; 81015; 82803; 83735; 83880; 84443; 84484; 85025; 85610; 87804; 87899; 93005; 93306-TC; 94640; 97116-GP; 97161-GP; 99284-25; G0378; J1644

== ENCOUNTER 2018-11-28 12:21 | Inpatient (IN) | payer OTHER ==
--- NOTE | 2018-11-28 12:25 | PDOC ---
History of Present Illness - General Chief Complaint: Shortness of Breath Stated Complaint: sob Time Seen by Provider: 11/28/18 12:24 - History of Present Illness Initial Comments: 11/28/18 14:08 If complaint: Shortness of breath History of present illness: Patient complains of gradually progressive shortness of breath since her prior hospitalization for COPD exacerbation in mid August. Chronic cough is present but there is no sputum production. Sent to the ER by primary physician for further evaluation and treatment Review of systems: Denies fever/chills, chest pain, abdominal pain, nausea, vomiting, diarrhea, visual or focal neurologic symptoms, unsteadiness of gait. Adequately ambulatory with a walker and cane, but exercise tolerance is severely limited and complains of early fatigue. Past medical history: Asthma as a child, but never smoked. Morbid obesity. Social history: Lives alone, limited mobility, daughter visits. No tobacco alcohol or drugs. Family history: Reviewed and noncontributory including early coronary artery disease, pulmonary disease, metabolic disease including diabetes, and cancer Physical exam: Alert, no acute distress at rest, cheerful and cooperative. Afebrile, vital signs normal except for systolic hypertension PERRLA, fundi benign, ENT clear Neck supple without bruit mass or nodes Decreased breath sounds bilaterally, hyperresonance, wheezing at both bases S1 and S2 distant without murmur rub or gallop pulses full and symmetric no JVD or edema no bruits Abdomen benign Neurological intact Extremities no CCE Skin clear, no rash, adequate turgor and wet mucous membranes Impression: Acute exacerbation of chronic bronchitis, COPD, rule out pneumonia Plan: Chest x-ray, CBC and chemistries, EKG and enzymes, nebulizers, steroids, and further evaluation Past History - Past Medical History Allergies/Adverse Reactions: Allergies Allergy/AdvReac Type Severity Reaction Status Date / Time No Known Allergies Allergy Verified 11/28/18 12:23 Home Medications: Ambulatory Orders Furosemide 40 mg PO DAILY tablet 09/30/16 Omeprazole 20 mg PO DAILY #30 tablet. 09/09/17 Montelukast Sodium [Singulair] 10 mg PO DAILY 08/15/18 Tiotropium [place] [Spiriva] 18 mcg IH DAILY 08/15/18 Nifedipine ER [Procardia XL -] 60 mg PO DAILY #30 tab.er.[id number] 08/17/18 Budesonide/Formeterol Fumarate [SYMBICORT 160/4.5mcg -] 1 inh PO DAILY 11/28/18 Asthma: Yes COPD: Yes CHF: Yes Disorders: Yes HTN: Yes Thyroid Disease: Yes ("I get it checked every year" (not sure why)) - Surgical History Cholecystectomy: Yes (Cholecystectomy 1993) - Suicide/Smoking/Psychosocial Hx Smoking History: Never smoked Have you smoked in the past 12 months: No Hx Alcohol Use: No Drug/Substance Use Hx: No Substance Use Type: None Hx Substance Use Treatment: No ED Treatment Course - LABORATORY CBC & Chemistry Diagram: 11/28/18 12:51 11/28/18 12:51 Medical Decision Making - Medical Decision Making 11/28/18 14:29 EKG reviewed: Normal sinus rhythm 67/m. Left bundle branch block. No change from prior EKG 08/15/2018 Chest x-ray: Cardiomegaly, no congestive changes, possible early infiltrate righ Labs pending. 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 Patient stable both clinically and hemodynamically upon transfer to [facility] unit *DC/Admit/Observation/Transfer Diagnosis at time of Disposition: COPD (chronic obstructive pulmonary disease) with acute bronchitis - Discharge Dispostion Decision to Admit order: Yes - Referrals - Patient Instructions - Post Discharge Activity
[2018-11-28] MEDS ORDERED: methylPREDNISolone NA SUCC 125 MG/2 ML VIAL IVPB ONE (13:05)
[2018-11-28] MEDS ORDERED: ALBUTEROL SO4 2.5/IPRATROPIUM 0.5 INH SOL 3 ML VIAL.NEB. NEB ONE ×2 (13:05→13:13)
[2018-11-28 13:07] LABS: HEMOGLOBIN 15.4 GM/dl (10.7-15.3); WHITE BLOOD COUNT 15.7 K/mm3 (4.0-10.8)
[2018-11-28 13:11] LABS: HEMATOCRIT 46.6 % (32.4-45.2); MCH 30.1 pg (25.7-33.7); MCHC 33.1 g/dl (32.0-36.0); MEAN PLT VOLUME 9.2 fl (7.5-11.1); PLATELET COUNT 288 K/MM3 (134-434); RBC 5.12 M/mm3 (3.60-5.2); RDW 12.4 % (11.6-15.6)
[2018-11-28] MEDS ORDERED: methylPREDNISolone NA SUCC 40 MG/1 ML VIAL ONE (13:13)
[2018-11-28 13:15] LABS: ALBUMIN 3.2 g/dl (3.4-5.0); BILIRUBIN,TOTAL 0.6 mg/dl (0.2-1); CALCIUM 9.2 mg/dl (8.5-10); CREATININE 0.9 mg/dl (0.55-1.3); POTASSIUM 3.8 mmol/L (3.5-5.1); TOT PROT 5.9 g/dl (6.4-8.2)
--- NOTE | 2018-11-28 13:35 | HP ---
CHIEF COMPLAINT: I can't breathe when I walk. PCP: Dr. Antonio HISTORY OF PRESENT ILLNESS: 78 year-old female with a PMH significant for HTN, diastolic HF, and COPD, who was referred to the ED by her PCP Dr. Antonio for evaluation of shortness of breath and dyspnea on exertion. On 11/21/18 patient went to see Dr. Antonio who increased PO prednisone from 10 to 30mg daily and prescribed a Z-pack which patient finished. Patient returned to his office today reporting no improvement. She has been nebulzing at home about 3 times every 24 hours. Uses 2L O2 at night. Denies fever, sweats, chills. Denies nausea, vomiting, diarrhea. Denies chest pain, palpitations. Recent Travel: No PAST MEDICAL HISTORY: Hypertension Diastolic heart failure COPD PAST SURGICAL HISTORY: Cholecystectomy Social History: Smoking: no Alcohol: no Drugs: no Family History: mother age 78, CVAs, first age 70; father age 35, heart disease; 2 children, alive and well Allergies No Known Allergies Allergy (Verified 11/28/18 12:23) HOME MEDICATIONS: Home Medications Medication Instructions Recorded Furosemide 40 mg PO DAILY tablet 09/30/16 Omeprazole 20 mg PO DAILY #30 tablet. 09/09/17 Montelukast Sodium [Singulair] 10 mg PO DAILY 08/15/18 Tiotropium [place] [Spiriva] 18 mcg IH DAILY 08/15/18 Nifedipine ER [Procardia XL -] 60 mg PO DAILY #30 tab.er.24 08/17/18 Budesonide/Formeterol Fumarate 1 inh PO DAILY 11/28/18 [SYMBICORT 160/4.5mcg -] REVIEW OF SYSTEMS CONSTITUTIONAL: Absent: fever, chills, diaphoresis, generalized weakness, malaise, loss of appetite, weight change HEENT: Absent: rhinorrhea, nasal congestion, throat pain, throat swelling, difficulty swallowing, mouth swelling, ear pain, eye pain, visual changes CARDIOVASCULAR: Absent: chest pain, syncope, palpitations, irregular heart rate, lightheadedness , peripheral edema RESPIRATORY: +SOB, SOTO, cough Absent: orthopnea, wheezing, stridor, hemoptysis GASTROINTESTINAL: Absent: abdominal pain, abdominal distension, nausea, vomiting, diarrhea, constipation, melena, hematochezia GENITOURINARY: Absent: dysuria, frequency, urgency, hesitancy, hematuria, flank pain, genital pain MUSCULOSKELETAL: Absent: myalgia, arthralgia, joint swelling, back pain, neck pain SKIN: Absent: rash, itching, pallor HEMATOLOGIC/IMMUNOLOGIC: Absent: easy bleeding, easy bruising, lymphadenopathy, frequent infections ENDOCRINE: Absent: unexplained weight gain, unexplained weight loss, heat intolerance, cold intolerance NEUROLOGIC: Absent: headache, focal weakness or paresthesias, dizziness, unsteady gait, seizure, mental status changes, bladder or bowel incontinence PSYCHIATRIC: Absent: anxiety, depression, suicidal or homicidal ideation, hallucinations. PHYSICAL EXAMINATION Vital Signs - 24 hr 11/28/18 12:22 Temperature 98.6 F Pulse Rate 72 Respiratory 22 H Rate Blood Pressure 186/85 H O2 Sat by Pulse 97 Oximetry (%) GENERAL: Awake, alert, and fully oriented, in no acute distress. HEAD: Normal with no signs of trauma. EYES: Pupils equal, round and reactive to light, extraocular movements intact, sclera anicteric, conjunctiva clear. No lid lag. EARS, NOSE, THROAT: Ears normal, nares patent, oropharynx clear without exudates. Moist mucous membranes. NECK: Normal range of motion, supple without lymphadenopathy, JVD, or masses. LUNGS: Poor air movement; diffuse expiratory wheezing; able to speak in complete sentences; no accessory muscle use HEART: Regular rate and rhythm, normal S1 and S2 ABDOMEN: Soft, nontender, not distended UPPER EXTREMITIES: 2+ pulses, warm, well-perfused. No cyanosis. No clubbing. No peripheral edema. LOWER EXTREMITIES: 2+ pulses, warm, well-perfused. No calf tenderness. Trace bilateral edema; no calf tenderness NEUROLOGICAL: Cranial nerves II-XII intact. Normal speech. Normal gait. PSYCHIATRIC: Cooperative. Good eye contact. Appropriate mood and affect. SKIN: Warm, dry, normal turgor, no rashes or lesions noted, normal capillary refill. Laboratory Results - last 24 hr 11/28/18 11/28/18 11/28/18 12:51 12:51 12:51 WBC 15.7 H RBC 5.12 Hgb 15.4 H Hct 46.6 H MCV 91.0 MCH 30.1 MCHC 33.1 RDW 12.4 Plt Count 288 MPV 9.2 Absolute Neuts (auto) 12.9 Neutrophils % No Result Required. Lymphocytes % No Result Required. Sodium 140 Potassium 3.8 Chloride 101 Carbon Dioxide 29 Anion Gap 10 BUN 15.0 Creatinine 0.9 Est GFR (CKD-EPI)AfAm 69.99 Est GFR (CKD-EPI)NonAf 60.39 Random Glucose 107 H Calcium 9.2 Total Bilirubin 0.6 AST 21 ALT 25 Alkaline Phosphatase 102 Creatine Kinase 145 Troponin I 0.05 Total Protein 5.9 L Albumin 3.2 L ASSESSMENT/PLAN 78 year-old female with a PMH significant for HTN, diastolic HF, and COPD, admitted for SOB. Shortness of breath Chronic COPD --CXR: unremarkable; afebrile; leukocytosis likely secondary to steroids --SpO2 97% on room air at rest, 96% on room air with flat surface walking, checked by me --finished course of azithro on 11/26; started on empiric ceftriaxone in ED --given prednisone 60mg x 1 in ED --continue Symbicort, Spiriva, Singulair --duonebs scheduled --pulmonary consult Hypertension --continue Enalapril, nifedipine Diastolic heart failure --appears euvolemic --continue home lasix PO 40mg daily FEN Fluids: PO intake adequate Electrolytes: replete as indicated Nutrition: low sodium DVT prophylaxis: subq heparin Physical therapy Pre post Dispo: continues to require inpatient care. Full code. Visit type - Emergency Visit Emergency Visit: Yes ED Registration Date: 11/28/18 Care time: The patient presented to the Emergency Department on the above date and was hospitalized for further evaluation of their emergent condition. - New Patient This patient is new to me today: Yes Date on this admission: 11/29/18 - Critical Care Critical Care patient: No
[2018-11-28 13:42] LABS: PLATELET ESTIMATE ADEQUATE
[2018-11-28] MEDS ORDERED: AZITHROMYCIN IVPB 500 MG/250 ML BAG IVPB SCH (14:45)
--- NOTE | 2018-11-28 15:42 | EKG ---
Test Reason : Blood Pressure : / mmHG Vent. Rate : 070 BPM Atrial Rate : 070 BPM P-R Int : 170 ms QRS Dur : 134 ms QT Int : 430 ms P-R-T Axes : 081 -17 104 degrees QTc Int : 464 ms SINUS RHYTHM WITH OCCASIONAL PREMATURE VENTRICULAR COMPLEXES NON-SPECIFIC INTRA-VENTRICULAR CONDUCTION BLOCK CANNOT RULE OUT ANTEROSEPTAL INFARCT , AGE UNDETERMINED T WAVE ABNORMALITY, CONSIDER LATERAL ISCHEMIA ABNORMAL ECG WHEN COMPARED WITH ECG OF 15-AUG-2018 10:43, PREMATURE VENTRICULAR COMPLEXES ARE NOW PRESENT Confirmed by JEANETTE BRASHER, DAYDAY ([id number]) on 11/28/2018 3:42:13 PM Referred By: CHAPITO RICH Confirmed By:DAYDAY REID MD
[2018-11-28] MEDS: ALBUTEROL SO4 2.5/IPRATROPIUM 0.5 INH SOL 3 ML VIAL.NEB. NEB SCH ×2 (16:00→20:43)
[2018-11-28] MEDS: CEFTRIAXONE 1 G/50 ML PREMIX 50 ML IVPB SCH (16:00)
[2018-11-28] MEDS: HEPARIN NA (PORCINE) 5,000 UNITS/ML 1ML VIAL SQ SCH (19:19)
[2018-11-28] MEDS: methylPREDNISolone NA SUCC 40 MG/1 ML VIAL IVPUSH SCH (20:45)
[2018-11-28] MEDS: BUDESONIDE/FORMETEROL FUMARATE 160/4.5 mcg INHALER IH SCH (21:11)
[2018-11-28] MEDS: ENALAPRIL MALEATE 10 MG TABLET (FP) PO SCH (21:12)
[2018-11-28] MEDS: guaiFENesin/CODEINE 10 ML UNIT-DOSE CUPS PO PRN (23:58)
[2018-11-29] MEDS: HEPARIN NA (PORCINE) 5,000 UNITS/ML 1ML VIAL SQ SCH ×4 (02:34→17:38)
[2018-11-29] MEDS: methylPREDNISolone NA SUCC 40 MG/1 ML VIAL IVPUSH SCH ×4 (03:36→20:27)
[2018-11-29 07:29] LABS: HEMATOCRIT 45.2 % (32.4-45.2); HEMOGLOBIN 15.1 GM/dl (10.7-15.3); LYMPH % 6.7 % (8-40); MCH 30.6 pg (25.7-33.7); MCHC 33.4 g/dl (32.0-36.0); MEAN CELL VOLUME 91.8 fl (80-96); MEAN PLT VOLUME 10.2 fl (7.5-11.1); MONO % 0.7 % (3.8-10.2); NEUT % 90.6 % (42.8-82.8); PLATELET COUNT 269 K/MM3 (134-434); RBC 4.92 M/mm3 (3.60-5.2); RDW 12.4 % (11.6-15.6); WHITE BLOOD COUNT 15.6 K/mm3 (4.0-10.8)
[2018-11-29 07:37] LABS: ALBUMIN 3.1 g/dl (3.4-5.0); BILIRUBIN,TOTAL 0.6 mg/dl (0.2-1); CALCIUM 9.1 mg/dl (8.5-10); MAGNESIUM 2.2 mg/dL (1.8-2.4); POTASSIUM 4.4 mmol/L (3.5-5.1); TOT PROT 6.1 g/dl (6.4-8.2)
[2018-11-29] MEDS: ALBUTEROL SO4 2.5/IPRATROPIUM 0.5 INH SOL 3 ML VIAL.NEB. NEB SCH ×4 (08:36→20:10)
[2018-11-29] MEDS ORDERED: PATIENT'S OWN MEDICATION (NON-FORMULARY) (Omeprazole [Omeprazole] 20 MG) PO SCH (10:00)
[2018-11-29] MEDS ORDERED: BUDESONIDE/FORMETEROL FUMARATE 160/4.5 mcg INHALER IH SCH (10:00)
[2018-11-29] MEDS ORDERED: PATIENT'S OWN MEDICATION (NON-FORMULARY) (Tiotropium Bromide [Spiriva] 18 MCG) IH SCH (10:00)
[2018-11-29] MEDS: guaiFENesin/CODEINE 10 ML UNIT-DOSE CUPS PO PRN ×2 (10:33→16:00)
--- NOTE | 2018-11-29 10:33 | PN ---
Progress Note (short form) - Note Progress Note: PULMONARY CONSULTATION DICTATED 11/29/18 IMP COPD/ASTHMA EXACERBATION H/O PULMONARY NODULES STABLE CHF MORBID OBESITY BILATERAL PULMONARY NODULES SCIATICA PLAN IV STEROIDS INHALED BRONCHODILATORS O2 MONITOR PEAK FLOW DR CROWDER Problem List - Problems (1) COPD (chronic obstructive pulmonary disease) with acute bronchitis Code(s): J44.0 - CHRONIC OBSTRUCTIVE PULMON DISEASE W ACUTE LOWER RESP INFCT; J20.9 - ACUTE BRONCHITIS, UNSPECIFIED (2) Lung nodule, multiple Code(s): R91.8 - OTHER NONSPECIFIC ABNORMAL FINDING OF LUNG FIELD (3) Sciatica Code(s): M54.30 - SCIATICA, UNSPECIFIED SIDE Qualifiers: Laterality: left Qualified Code(s): M54.32 - Sciatica, left side (4) CHF (congestive heart failure) Code(s): I50.9 - HEART FAILURE, UNSPECIFIED
[2018-11-29] MEDS: NIFEdipine E.R 60 MG TABLET (UD) PO SCH (10:34)
[2018-11-29] MEDS: ENALAPRIL MALEATE 10 MG TABLET (FP) PO SCH ×2 (10:34→21:52)
[2018-11-29] MEDS: FUROSEMIDE 40 MG TABLET (FP) PO SCH (10:34)
[2018-11-29] MEDS: PANTOPRAZOLE 20 MG TABLET (FP) PO SCH (10:35)
[2018-11-29] MEDS: TIOTROPIUM BROMIDE 2.5 MCG (SPIRIVA) RESPIMAT INHALER IH SCH (10:35)
[2018-11-29] MEDS: CEFTRIAXONE 1 G/50 ML PREMIX 50 ML IVPB SCH (10:35)
[2018-11-29] MEDS: BUDESONIDE/FORMETEROL FUMARATE 160/4.5 mcg INHALER IH SCH ×2 (10:35→21:51)
--- NOTE | 2018-11-29 11:36 | CONS ---
PULMONARY CONSULTATION DATE OF CONSULTATION: 11/29/2018 REFERRING PROVIDER: Rosy Mcgovern NP The patient is an 78-year-old white female known to me in previous hospitalization as well as office visits with past medical history of chronic, persistent asthma; advanced COPD; CHF; obesity; gastritis; sciatica; nonsmoker, admitted to [facility] on November 28, with increasing shortness of breath, cough, and chest congestion. The patient has recently,w/in the past week or so, has been having increasing shortness of breath; therefore, she was placed on prednisone. Her dose was tapered to 10 mg and had developed increased symptoms, was placed on 30 mg a day last week. She also was prescribed a Z-Mohamud which was completed. She went to see Dr. Antonio yesterday in the office without any improvement. At which time, she complained of shortness of breath, severe dyspnea with minimal exertion; only able to ambulate a few feet without developing shortness of breath. She was referred to the ER. In the ER, she was treated with steroids and transferred to the medical floor for further management. At home, she was using her inhaler 3-4 times a day. As noted, she is also on nasal O2 at 2 L at night and p.r.n. during the day. She is a nonsmoker. There is no history of occupational exposure to chemicals or fumes. She has never been intubated. There is no history of DVT or PE in the past. There is no history of recent travel. PAST MEDICAL HISTORY: Again includes CHF, COPD/asthma, sciatica, morbid obesity. REVIEW OF SYSTEMS: Positive shortness of breath. Positive cough. No fever. No chills. No hemoptysis. No chest pain. No palpitations. No nausea. No vomiting. No abdominal pain. Positive mild right lower extremity edema which is chronic. MEDICATIONS: Include Symbicort 160/4.5, Solu-Medrol 40 q.6, Vasotec, heparin, Spiriva, Robitussin A-C, DuoNeb, ceftriaxone, nifedipine, Procardia, Singulair, Lasix, and pantoprazole. PHYSICAL EXAMINATION: General: The patient is an obese female, well awake, alert, in no acute distress. Vital Signs: She is currently afebrile. Heart rate is 63. Blood pressure is 156/62. Respiratory rate is 19. O2 saturation is 97% on room air. HEENT: Normocephalic, atraumatic. Neck: Supple. Heart: Regular. S1, S2. Chest: Scattered bilateral wheezes. Abdomen: Soft. Bowel sounds are positive. Extremities: No cyanosis or edema. LABORATORY DATA: WBC is 15.6, hemoglobin 15.1, hematocrit 45.2 with a platelet count of 269,000. INR is 1.19. Chemistries: BUN 21, creatinine 1. Chest x-ray: Increased markings bilaterally; some nodular densities. Of note, this patient had a CAT scan on August 16, 2018, which revealed bilateral pulmonary nodules which have been stable since 2019. IMPRESSION: 1. Asthma/chronic obstructive pulmonary disease exacerbation. 2. History of congestive heart failure. 3. Morbid obesity. 4. History of Pulmonary nodules stable PLAN: IV steroids, inhaled bronchodilators, supplemental O2. Monitor peak flow. YOLA CROWDER M.D. [id number] MTDD
--- NOTE | 2018-11-29 13:09 | PN ---
Physical Exam: SUBJECTIVE: Patient seen and examined at bedside. Continues to feel short of breath. Walked with PT today. OBJECTIVE: Vital Signs Period Temp Pulse Resp BP Sys/Pizarro Pulse Ox Last 24 Hr 97.5 F-98.6 F 51-81 17-21 150-180/51-81 95-97 GENERAL: Awake, alert, and fully oriented, in no acute distress. LUNGS: Better air movement, no wheezing HEART: Regular rate and rhythm, normal S1 and S2 ABDOMEN: Soft, nontender, not distended UPPER EXTREMITIES: 2+ pulses, warm, well-perfused. No cyanosis. No clubbing. No peripheral edema. LOWER EXTREMITIES: 2+ pulses, warm, well-perfused. No calf tenderness. Trace bilateral edema; no calf tenderness NEUROLOGICAL: Cranial nerves II-XII intact. Normal speech. Laboratory Results - last 24 hr 11/28/18 11/28/18 11/28/18 12:51 12:51 12:51 WBC 15.7 H RBC 5.12 Hgb 15.4 H Hct 46.6 H MCV 91.0 MCH 30.1 MCHC 33.1 RDW 12.4 Plt Count 288 MPV 9.2 Absolute Neuts (auto) 12.9 Neutrophils % No Result Required. Neutrophils % (Manual) 87.0 H Lymphocytes % No Result Required. Lymphocytes % (Manual) 11.0 Monocytes % Monocytes % (Manual) 2 L Eosinophils % Basophils % Platelet Estimate Adequate Sodium 140 Potassium 3.8 Chloride 101 Carbon Dioxide 29 Anion Gap 10 BUN 15.0 Creatinine 0.9 Est GFR (CKD-EPI)AfAm 69.99 Est GFR (CKD-EPI)NonAf 60.39 Random Glucose 107 H Calcium 9.2 Magnesium Total Bilirubin 0.6 AST 21 ALT 25 Alkaline Phosphatase 102 Creatine Kinase 145 Troponin I 0.05 Total Protein 5.9 L Albumin 3.2 L Urine Color Urine Appearance Urine pH Urine Protein Urine Glucose (UA) Urine Ketones Urine Blood Urine Nitrite Urine Bilirubin Urine Urobilinogen Ur Leukocyte Esterase Urine RBC 11/28/18 11/29/18 11/29/18 13:39 07:13 07:13 WBC 15.6 H RBC 4.92 Hgb 15.1 Hct 45.2 MCV 91.8 MCH 30.6 MCHC 33.4 RDW 12.4 Plt Count 269 MPV 10.2 Absolute Neuts (auto) 14.2 Neutrophils % 90.6 H Neutrophils % (Manual) Lymphocytes % 6.7 L Lymphocytes % (Manual) Monocytes % 0.7 L Monocytes % (Manual) Eosinophils % 0.0 Basophils % 2.0 Platelet Estimate Sodium 138 Potassium 4.4 Chloride 98 Carbon Dioxide 27 Anion Gap 13 BUN 21.0 H Creatinine 1.0 Est GFR (CKD-EPI)AfAm 61.62 Est GFR (CKD-EPI)NonAf 53.17 Random Glucose 188 H Calcium 9.1 Magnesium 2.2 Total Bilirubin 0.6 AST 28 ALT 27 Alkaline Phosphatase 105 Creatine Kinase Troponin I Total Protein 6.1 L Albumin 3.1 L Urine Color Bibi Urine Appearance Clear Urine pH 6.0 Urine Protein Negative Urine Glucose (UA) Negative Urine Ketones Negative Urine Blood Trace-intact Urine Nitrite Negative Urine Bilirubin Negative Urine Urobilinogen 0.2 Ur Leukocyte Esterase Negative Urine RBC 0-2 Active Medications Generic Name Dose Route Start Last Admin Trade Name Freq PRN Reason Stop Dose Admin Albuterol/Ipratropium 1 amp 11/28/18 16:00 11/29/18 12:17 Duoneb - NEB 1 amp RQID ELIJAH Administration Budesonide/Formoterol Fumarate 2 puff 11/28/18 22:00 11/29/18 10:35 Symbicort 160/4.5mcg - IH 2 puff BID ELIJAH Administration Enalapril Maleate 20 mg 11/28/18 22:00 11/29/18 10:34 Vasotec - PO 20 mg BID ELIJAH Administration Furosemide 40 mg 11/29/18 10:00 11/29/18 10:34 Lasix - PO 40 mg DAILY ELIJAH Administration Guaifenesin/Codeine Phosphate 5 ml 11/29/18 10:43 Robitussin Ac - PO Q4H PRN COUGH Heparin Sodium (Porcine) 5,000 unit 11/28/18 18:00 11/29/18 10:47 Heparin - SQ Not Given Q8H-IV ELIJAH Ceftriaxone Sodium 50 mls @ 100 mls/hr 11/28/18 15:30 11/29/18 10:35 Ceftriaxone 1 Gm-D5w Bag IVPB 100 mls/hr DAILY ELIJAH Administration Protocol Methylprednisolone Sodium Succinate 40 mg 11/28/18 21:00 11/29/18 08:43 Solu-Medrol - IVPUSH 40 mg Q6H-IV ELIJAH Administration Montelukast Sodium 10 mg 11/29/18 22:00 Singulair - PO HS ELIJAH Nifedipine 60 mg 11/29/18 10:00 11/29/18 10:34 Procardia Xl - PO 60 mg DAILY ELIJAH Administration Pantoprazole Sodium 20 mg 11/29/18 10:00 11/29/18 10:35 Protonix - PO 20 mg DAILY ELIJAH Administration Tiotropium [place] 2 puff 11/29/18 10:00 11/29/18 10:35 Spiriva Respimat IH 2 puff DAILY ELIJAH Administration ASSESSMENT/PLAN: 78 year-old female with a PMH significant for HTN, diastolic HF, and COPD, admitted for SOB. Shortness of breath Chronic COPD --CXR: unremarkable; afebrile; leukocytosis likely secondary to steroids --11/28: SpO2 97% on room air at rest, 96% on room air with flat surface walking, checked by me; repeat pre post --finished course of azithro on 11/26; observe off antibiotics --started on IV steroids by pulmonary --continue Symbicort, Spiriva, Singulair --duonebs scheduled Hypertension --continue Enalapril, nifedipine Diastolic heart failure --appears euvolemic --continue home lasix PO 40mg daily FEN Fluids: PO intake adequate Electrolytes: replete as indicated Nutrition: low sodium DVT prophylaxis: subq heparin Physical therapy Pre post Dispo: continues to require inpatient care. Full code. Visit type - Emergency Visit Emergency Visit: Yes ED Registration Date: 11/28/18 Care time: The patient presented to the Emergency Department on the above date and was hospitalized for further evaluation of their emergent condition. - New Patient This patient is new to me today: No - Critical Care Critical Care patient: No
[2018-11-29] MEDS: MONTELUKAST NA 10 MG TABLET PO SCH (21:51)
[2018-11-30] MEDS: guaiFENesin/CODEINE 10 ML UNIT-DOSE CUPS PO PRN ×2 (00:53→22:08)
[2018-11-30] MEDS: methylPREDNISolone NA SUCC 40 MG/1 ML VIAL IVPUSH SCH ×4 (02:27→21:18)
[2018-11-30] MEDS: HEPARIN NA (PORCINE) 5,000 UNITS/ML 1ML VIAL SQ SCH ×3 (02:27→10:00)
[2018-11-30] MEDS: ALBUTEROL SO4 2.5/IPRATROPIUM 0.5 INH SOL 3 ML VIAL.NEB. NEB SCH ×4 (07:04→21:18)
--- NOTE | 2018-11-30 09:25 | PN ---
Progress Note, Physician Chief Complaint: pulmonary alert,still very congested,+ cough,dyspneic with min exertion - Current Medication List Current Medications: Active Medications Albuterol/Ipratropium (Duoneb -) 1 amp NEB RQID [facility] Last Admin: 11/30/18 07:04 Dose: 1 amp Budesonide/Formoterol Fumarate (Symbicort 160/4.5mcg -) 2 puff IH BID [facility] Last Admin: 11/29/18 21:51 Dose: 2 puff Enalapril Maleate (Vasotec -) 20 mg PO BID [facility] Last Admin: 11/29/18 21:52 Dose: 20 mg Furosemide (Lasix -) 40 mg PO DAILY [facility] Last Admin: 11/29/18 10:34 Dose: 40 mg Guaifenesin/Codeine Phosphate (Robitussin Ac -) 5 ml PO Q4H PRN PRN Reason: COUGH Last Admin: 11/30/18 00:53 Dose: 5 ml Heparin Sodium (Porcine) (Heparin -) 5,000 unit SQ Q8H-IV [facility] Last Admin: 11/30/18 02:27 Dose: Not Given Methylprednisolone Sodium Succinate (Solu-Medrol -) 40 mg IVPUSH Q6H-IV [facility] Last Admin: 11/30/18 02:27 Dose: 40 mg Montelukast Sodium (Singulair -) 10 mg PO HS [facility] Last Admin: 11/29/18 21:51 Dose: 10 mg Nifedipine (Procardia Xl -) 60 mg PO DAILY [facility] Last Admin: 11/29/18 10:34 Dose: 60 mg Pantoprazole Sodium (Protonix -) 20 mg PO DAILY [facility] Last Admin: 11/29/18 10:35 Dose: 20 mg Tiotropium [place] (Spiriva Respimat) 2 puff IH DAILY [facility] Last Admin: 11/29/18 10:35 Dose: 2 puff - Objective Vital Signs: Vital Signs Temperature 97.5 F L 11/30/18 06:00 Pulse Rate 57 L 11/30/18 06:00 Respiratory Rate 20 11/30/18 06:00 Blood Pressure 101/51 L 11/30/18 06:00 O2 Sat by Pulse Oximetry (%) 97 11/30/18 08:15 Constitutional: Yes: Well Nourished, Calm Eyes: Yes: WNL HENT: Yes: WNL Neck: Yes: WNL Cardiovascular: Yes: Regular Rate and Rhythm, S1, S2 Respiratory: Yes: Rhonchi (bilateral wheezes and rhonchi), Wheezes Gastrointestinal: Yes: Normal Bowel Sounds, Soft Extremities: Yes: WNL Edema: No Labs: CBC, BMP 11/29/18 07:13 11/29/18 07:13 Problem List - Problems (1) COPD (chronic obstructive pulmonary disease) with acute bronchitis Code(s): J44.0 - CHRONIC OBSTRUCTIVE PULMON DISEASE W ACUTE LOWER RESP INFCT; J20.9 - ACUTE BRONCHITIS, UNSPECIFIED (2) Lung nodule, multiple Code(s): R91.8 - OTHER NONSPECIFIC ABNORMAL FINDING OF LUNG FIELD (3) Sciatica Code(s): M54.30 - SCIATICA, UNSPECIFIED SIDE Qualifiers: Laterality: left Qualified Code(s): M54.32 - Sciatica, left side (4) CHF (congestive heart failure) Code(s): I50.9 - HEART FAILURE, UNSPECIFIED Assessment/Plan IMP COPD/ASTHMA EXACERBATION H/O PULMONARY NODULES STABLE CHF MORBID OBESITY BILATERAL PULMONARY NODULES SCIATICA PLAN CONTINUE IV STEROIDS SAME DOSE INHALED BRONCHODILATORS O2 MONITOR PEAK FLOW DR CROWDER Problem List - Problems (1) COPD (chronic obstructive pulmonary disease) with acute bronchitis Code(s): J44.0 - CHRONIC OBSTRUCTIVE PULMON DISEASE W ACUTE LOWER RESP INFCT; J20.9 - ACUTE BRONCHITIS, UNSPECIFIED (2) Lung nodule, multiple Code(s): R91.8 - OTHER NONSPECIFIC ABNORMAL FINDING OF LUNG FIELD (3) Sciatica Code(s): M54.30 - SCIATICA, UNSPECIFIED SIDE Qualifiers: Laterality: left Qualified Code(s): M54.32 - Sciatica, left side (4) CHF (congestive heart failure) Code(s): I50.9 - HEART FAILURE, UNSPECIFIED
[2018-11-30] MEDS ORDERED: PT OWN MED DRAWER 7, Y5N ONE (09:50)
[2018-11-30] MEDS: BUDESONIDE/FORMETEROL FUMARATE 160/4.5 mcg INHALER IH SCH ×2 (09:53→21:20)
[2018-11-30] MEDS: NIFEdipine E.R 60 MG TABLET (UD) PO SCH (09:54)
[2018-11-30] MEDS: PANTOPRAZOLE 20 MG TABLET (FP) PO SCH (09:54)
[2018-11-30] MEDS: TIOTROPIUM BROMIDE 2.5 MCG (SPIRIVA) RESPIMAT INHALER IH SCH (09:54)
[2018-11-30] MEDS: ENALAPRIL MALEATE 10 MG TABLET (FP) PO SCH ×2 (09:55→21:19)
[2018-11-30] MEDS: FUROSEMIDE 40 MG TABLET (FP) PO SCH (09:55)
--- NOTE | 2018-11-30 11:16 | PN ---
Physical Exam: SUBJECTIVE: Patient seen and examined sitting on edge of bed. Voices no complaints today. OBJECTIVE: Vital Signs Period Temp Pulse Resp BP Sys/Pizarro Pulse Ox Last 24 Hr 97.4 F-98.3 F 57-74 18-20 101-156/49-60 94-100 GENERAL: Awake, alert, and fully oriented, in no acute distress. LUNGS: CTA, no wheezing HEART: Regular rate and rhythm, normal S1 and S2 ABDOMEN: Soft, nontender, not distended UPPER EXTREMITIES: 2+ pulses, warm, well-perfused. No cyanosis. No clubbing. No peripheral edema. LOWER EXTREMITIES: 2+ pulses, warm, well-perfused. No calf tenderness. Trace bilateral edema; no calf tenderness NEUROLOGICAL: Cranial nerves II-XII intact. Normal speech. Active Medications Generic Name Dose Route Start Last Admin Trade Name Freq PRN Reason Stop Dose Admin Albuterol/Ipratropium 1 amp 11/28/18 16:00 11/30/18 07:04 Duoneb - NEB 1 amp RQID ELIJAH Administration Budesonide/Formoterol Fumarate 2 puff 11/28/18 22:00 11/30/18 09:53 Symbicort 160/4.5mcg - IH 2 puff BID ELIJAH Administration Enalapril Maleate 20 mg 11/28/18 22:00 11/30/18 09:55 Vasotec - PO 20 mg BID ELIJAH Administration Furosemide 40 mg 11/29/18 10:00 11/30/18 09:55 Lasix - PO 40 mg DAILY ELIJAH Administration Guaifenesin/Codeine Phosphate 5 ml 11/29/18 10:43 11/30/18 00:53 Robitussin Ac - PO 5 ml Q4H PRN Administration COUGH Heparin Sodium (Porcine) 5,000 unit 11/28/18 18:00 11/30/18 09:54 Heparin - SQ 5,000 unit Q8H-IV ELIJAH Administration Methylprednisolone Sodium Succinate 40 mg 11/28/18 21:00 11/30/18 09:54 Solu-Medrol - IVPUSH 40 mg Q6H-IV ELIJAH Administration Montelukast Sodium 10 mg 11/29/18 22:00 11/29/18 21:51 Singulair - PO 10 mg HS ELIJAH Administration Nifedipine 60 mg 11/29/18 10:00 11/30/18 09:54 Procardia Xl - PO 60 mg DAILY ELIJAH Administration Pantoprazole Sodium 20 mg 11/29/18 10:00 11/30/18 09:54 Protonix - PO 20 mg DAILY ELIJAH Administration Tiotropium [place] 2 puff 11/29/18 10:00 11/30/18 09:54 Spiriva Respimat IH 2 puff DAILY ELIJAH Administration ASSESSMENT/PLAN 78 year-old female with a PMH significant for HTN, diastolic HF, and COPD, admitted for SOB. Shortness of breath Chronic COPD --CXR: unremarkable; afebrile; leukocytosis likely secondary to steroids --11/28: SpO2 97% on room air at rest, 96% on room air with flat surface walking --finished course of azithro on 11/26; observe off antibiotics --started on IV steroids by pulmonary --continue Symbicort, Spiriva, Singulair --duonebs scheduled Hypertension --continue Enalapril, nifedipine Diastolic heart failure --appears euvolemic --continue home lasix PO 40mg daily FEN Fluids: PO intake adequate Electrolytes: replete as indicated Nutrition: low sodium DVT prophylaxis: subq heparin Physical therapy Pre post Dispo: Full code. Visit type - Emergency Visit Emergency Visit: Yes ED Registration Date: 11/28/18 Care time: The patient presented to the Emergency Department on the above date and was hospitalized for further evaluation of their emergent condition. - New Patient This patient is new to me today: No - Critical Care Critical Care patient: No
[2018-11-30] MEDS: MONTELUKAST NA 10 MG TABLET PO SCH (21:19)
[2018-12-01] MEDS: HEPARIN NA (PORCINE) 5,000 UNITS/ML 1ML VIAL SQ SCH ×4 (01:18→17:04)
[2018-12-01] MEDS: methylPREDNISolone NA SUCC 40 MG/1 ML VIAL IVPUSH SCH ×3 (02:47→17:04)
[2018-12-01] MEDS: ALBUTEROL SO4 2.5/IPRATROPIUM 0.5 INH SOL 3 ML VIAL.NEB. NEB SCH ×4 (07:40→21:31)
[2018-12-01] MEDS: NIFEdipine E.R 60 MG TABLET (UD) PO SCH (10:07)
[2018-12-01] MEDS: PANTOPRAZOLE 20 MG TABLET (FP) PO SCH (10:08)
[2018-12-01] MEDS: ENALAPRIL MALEATE 10 MG TABLET (FP) PO SCH ×2 (10:08→21:32)
[2018-12-01] MEDS: FUROSEMIDE 40 MG TABLET (FP) PO SCH (10:08)
[2018-12-01] MEDS: TIOTROPIUM BROMIDE 2.5 MCG (SPIRIVA) RESPIMAT INHALER IH SCH (10:08)
[2018-12-01] MEDS: BUDESONIDE/FORMETEROL FUMARATE 160/4.5 mcg INHALER IH SCH ×2 (10:08→21:32)
--- NOTE | 2018-12-01 10:12 | PN ---
Physical Exam: SUBJECTIVE: Patient seen and examined at bedside. Pt reports sob improved at rest, but reports SOTO,and dry cough. Denies cp, palpitations, abdominal pain, N/V/D or urinary symptoms. OBJECTIVE: Vital Signs Period Temp Pulse Resp BP Sys/Pizarro Pulse Ox Last 24 Hr 97.7 F-98.0 F 55-64 16-20 129-152/48-66 96-100 GENERAL: The patient is awake, alert, and fully oriented, in no acute distress. HEAD: Normal with no signs of trauma. EYES: PERRL, extraocular movements intact, sclera anicteric, conjunctiva clear. No ptosis. ENT: Ears normal, nares patent, oropharynx clear without exudates, moist mucous membranes. NECK: Trachea midline, full range of motion, supple. LUNGS: Breath sounds equal, mild exp wheezes, no crackles, no accessory muscle use. HEART: Regular rate and rhythm, S1, S2 without murmur, rub or gallop. ABDOMEN: Soft, nontender, nondistended, normoactive bowel sounds, no guarding, no rebound, no hepatosplenomegaly, no masses. EXTREMITIES: 2+ pulses, warm, well-perfused, no edema. NEUROLOGICAL: Cranial nerves II through XII grossly intact. Normal speech, gait not observed. PSYCH: Normal mood, normal affect. SKIN: Warm, dry, normal turgor, no rashes or lesions noted Active Medications Generic Name Dose Route Start Last Admin Trade Name Freq PRN Reason Stop Dose Admin Albuterol/Ipratropium 1 amp 11/28/18 16:00 12/01/18 07:40 Duoneb - NEB 1 amp RQID ELIJAH Administration Budesonide/Formoterol Fumarate 2 puff 11/28/18 22:00 11/30/18 21:20 Symbicort 160/4.5mcg - IH 2 puff BID ELIJAH Administration Enalapril Maleate 20 mg 11/28/18 22:00 11/30/18 21:19 Vasotec - PO 20 mg BID ELIJAH Administration Furosemide 40 mg 11/29/18 10:00 11/30/18 09:55 Lasix - PO 40 mg DAILY ELIJAH Administration Guaifenesin/Codeine Phosphate 5 ml 11/29/18 10:43 11/30/18 22:08 Robitussin Ac - PO 5 ml Q4H PRN Administration COUGH Heparin Sodium (Porcine) 5,000 unit 11/28/18 18:00 12/01/18 07:12 Heparin - SQ Not Given Q8H-IV ELIJAH Methylprednisolone Sodium Succinate 40 mg 11/28/18 21:00 12/01/18 02:47 Solu-Medrol - IVPUSH 40 mg Q6H-IV ELIJAH Administration Montelukast Sodium 10 mg 11/29/18 22:00 11/30/18 21:19 Singulair - PO 10 mg HS ELIJAH Administration Nifedipine 60 mg 11/29/18 10:00 11/30/18 09:54 Procardia Xl - PO 60 mg DAILY ELIJAH Administration Pantoprazole Sodium 20 mg 11/29/18 10:00 11/30/18 09:54 Protonix - PO 20 mg DAILY ELIJAH Administration Tiotropium [place] 2 puff 11/29/18 10:00 11/30/18 09:54 Spiriva Respimat IH 2 puff DAILY ELIJAH Administration ASSESSMENT/PLAN: 78 year-old female with a PMH significant for HTN, diastolic HF, and COPD, admitted for SOB. * SOB likely due to COPD exacerbation -CXR: unremarkable - afebrile, leukocytosis likely secondary to steroids- -SpO2 98%on room air at rest, SOTO, will check O2 sat post ambulation -finished course of azithro on 11/26; observe off antibiotics -will cont on iV steroid - Pulmonary following -continue Symbicort, Spiriva, Singular -duonebs scheduled - will check peak flow *Hypertension- BP stable -continue Enalapril, nifedipine *Diastolic heart failure- denies sob - euvolemic -continue home lasix PO 40mg daily *Chronic Lung Nodules - Pt following with Dr. Addison * Elevated BS- no reported hx of DM - likely steroid induced - FS AC& HS - Insulin sliding scale - diet - consistent carb diet * Leukocytosis likely secondary to steroids -abnormal neutrophils -CxR and UA negative - no evidence of cough, afebrile - will f/u on CBC - BC negative FEN Fluids: PO intake adequate Electrolytes: replete as indicated Nutrition: low sodium DVT prophylaxis: subq heparin Physical therapy Dispo: Full code. Visit type - Emergency Visit Emergency Visit: Yes ED Registration Date: 11/28/18 Care time: The patient presented to the Emergency Department on the above date and was hospitalized for further evaluation of their emergent condition. - New Patient This patient is new to me today: No - Critical Care Critical Care patient: No
[2018-12-01 10:37] LABS: HEMATOCRIT 45.1 % (32.4-45.2); HEMOGLOBIN 15.2 GM/dl (10.7-15.3); MCH 30.5 pg (25.7-33.7); MCHC 33.6 g/dl (32.0-36.0); MEAN CELL VOLUME 90.8 fl (80-96); PLATELET COUNT 322 K/MM3 (134-434); RBC 4.97 M/mm3 (3.60-5.2); RDW 13.1 % (11.6-15.6); WHITE BLOOD COUNT 23.4 K/mm3 (4.0-10.8)
[2018-12-01 11:15] LABS: PLATELET ESTIMATE ADEQUATE
[2018-12-01] MEDS: INSULIN SLIDING SCALE (NOVOLOG) 1 VIAL SQ SCH ×3 (12:06→21:31)
[2018-12-01 14:14] VITALS: BMI 43.2
[2018-12-01] MEDS ORDERED: INSULIN (NOVOLOG) ASPART 100 UNITS/ML 10ML VIAL ONE (21:24)
[2018-12-01] MEDS: guaiFENesin/CODEINE 10 ML UNIT-DOSE CUPS PO PRN (21:32)
[2018-12-01] MEDS: MONTELUKAST NA 10 MG TABLET PO SCH (21:32)
[2018-12-02] MEDS: methylPREDNISolone NA SUCC 40 MG/1 ML VIAL IVPUSH SCH ×3 (01:12→17:33)
[2018-12-02] MEDS: HEPARIN NA (PORCINE) 5,000 UNITS/ML 1ML VIAL SQ SCH ×3 (01:12→17:20)
[2018-12-02] MEDS: guaiFENesin/CODEINE 10 ML UNIT-DOSE CUPS PO PRN (03:35)
[2018-12-02] MEDS ORDERED: INSULIN (NOVOLOG) ASPART 100 UNITS/ML 10ML VIAL ONE ×2 (07:19→11:47)
[2018-12-02] MEDS: INSULIN SLIDING SCALE (NOVOLOG) 1 VIAL SQ SCH ×4 (07:23→21:07)
[2018-12-02] MEDS: ALBUTEROL SO4 2.5/IPRATROPIUM 0.5 INH SOL 3 ML VIAL.NEB. NEB SCH ×4 (07:23→20:43)
[2018-12-02] MEDS: FUROSEMIDE 40 MG TABLET (FP) PO SCH (09:44)
[2018-12-02] MEDS: NIFEdipine E.R 60 MG TABLET (UD) PO SCH (09:44)
[2018-12-02] MEDS: ENALAPRIL MALEATE 10 MG TABLET (FP) PO SCH ×2 (09:44→21:07)
[2018-12-02] MEDS: PANTOPRAZOLE 20 MG TABLET (FP) PO SCH (09:44)
[2018-12-02] MEDS: BUDESONIDE/FORMETEROL FUMARATE 160/4.5 mcg INHALER IH SCH ×2 (09:45→21:07)
[2018-12-02] MEDS: TIOTROPIUM BROMIDE 2.5 MCG (SPIRIVA) RESPIMAT INHALER IH SCH (09:45)
[2018-12-02 09:56] LABS: BASO % 0.4 % (0-2.0); HEMOGLOBIN 14.6 GM/dl (10.7-15.3); LYMPH % 2.8 % (8-40); MCH 29.8 pg (25.7-33.7); MCHC 32.4 g/dl (32.0-36.0); MEAN PLT VOLUME 9.9 fl (7.5-11.1); MONO % 0.7 % (3.8-10.2); NEUT % 96.1 % (42.8-82.8); PLATELET COUNT 271 K/MM3 (134-434); RDW 12.7 % (11.6-15.6); WHITE BLOOD COUNT 19.4 K/mm3 (4.0-10.8)
--- NOTE | 2018-12-02 10:22 | PN ---
Physical Exam: SUBJECTIVE: Patient seen and examined, still reports intermittent non- productive cough,and sob with ambulation, no other complains. OBJECTIVE: Vital Signs Period Temp Pulse Resp BP Sys/Pizarro Pulse Ox Last 24 Hr 97.4 F-98.5 F 60-72 18-20 126-164/49-77 94-98 GENERAL: The patient is awake, alert, and fully oriented, in no acute distress. HEAD: Normal with no signs of trauma. EYES: PERRL, extraocular movements intact, sclera anicteric, conjunctiva clear. No ptosis. ENT: Ears normal, nares patent, oropharynx clear without exudates, moist mucous membranes. NECK: Trachea midline, full range of motion, supple. LUNGS: Breath sounds equal, but diminished, no rales or wheezing HEART: Regular rate and rhythm, S1, S2 without murmur, rub or gallop. ABDOMEN: Soft, nontender, nondistended, normoactive bowel sounds, no guarding, no rebound, no hepatosplenomegaly, no masses. EXTREMITIES: 2+ pulses, warm, well-perfused, no edema. NEUROLOGICAL: Cranial nerves II through XII grossly intact. Normal speech, gait not observed. PSYCH: Normal mood, normal affect. SKIN: Warm, dry, normal turgor, no rashes or lesions noted Laboratory Results - last 24 hr 12/01/18 12/01/18 12/01/18 10:33 11:55 16:38 WBC 23.4 H RBC 4.97 Hgb 15.2 Hct 45.1 MCV 90.8 MCH 30.5 MCHC 33.6 RDW 13.1 Plt Count 322 MPV 9.0 Absolute Neuts (auto) 21.1 Neutrophils % No Result Required. Neutrophils % (Manual) 97.0 H* Lymphocytes % No Result Required. Lymphocytes % (Manual) 1.0 L Monocytes % Monocytes % (Manual) 2 L Eosinophils % Basophils % Platelet Estimate Adequate POC Glucometer 170 271 12/01/18 12/02/18 12/02/18 20:30 06:06 08:00 WBC 19.4 H RBC 4.90 Hgb 14.6 Hct 45.0 MCV 92.0 MCH 29.8 MCHC 32.4 RDW 12.7 Plt Count 271 MPV 9.9 Absolute Neuts (auto) 18.7 Neutrophils % 96.1 H Neutrophils % (Manual) Lymphocytes % 2.8 L Lymphocytes % (Manual) Monocytes % 0.7 L Monocytes % (Manual) Eosinophils % 0.0 Basophils % 0.4 Platelet Estimate POC Glucometer 219 194 Active Medications Generic Name Dose Route Start Last Admin Trade Name Freq PRN Reason Stop Dose Admin Albuterol/Ipratropium 1 amp 11/28/18 16:00 12/02/18 07:23 Duoneb - NEB 1 amp RQID ELIJAH Administration Budesonide/Formoterol Fumarate 2 puff 11/28/18 22:00 12/02/18 09:45 Symbicort 160/4.5mcg - IH 2 puff BID ELIJAH Administration Enalapril Maleate 20 mg 11/28/18 22:00 12/02/18 09:44 Vasotec - PO 20 mg BID ELIJAH Administration Furosemide 40 mg 11/29/18 10:00 12/02/18 09:44 Lasix - PO 40 mg DAILY ELIJAH Administration Guaifenesin/Codeine Phosphate 5 ml 11/29/18 10:43 12/02/18 03:35 Robitussin Ac - PO 5 ml Q4H PRN Administration COUGH Heparin Sodium (Porcine) 5,000 unit 11/28/18 18:00 12/02/18 09:44 Heparin - SQ Not Given Q8H-IV ELIJAH Insulin Aspart 1 vial 12/01/18 11:00 12/02/18 07:23 Novolog Vial Sliding Scale - SQ 2 unit ACHS ELIJAH Administration Protocol Methylprednisolone Sodium Succinate 40 mg 12/01/18 18:00 12/02/18 09:44 Solu-Medrol - IVPUSH 40 mg Q8H-IV ELIJAH Administration Montelukast Sodium 10 mg 11/29/18 22:00 12/01/18 21:32 Singulair - PO 10 mg HS ELIJAH Administration Nifedipine 60 mg 11/29/18 10:00 12/02/18 09:44 Procardia Xl - PO 60 mg DAILY ELIJAH Administration Pantoprazole Sodium 20 mg 11/29/18 10:00 12/02/18 09:44 Protonix - PO 20 mg DAILY ELIJAH Administration Tiotropium [place] 2 puff 11/29/18 10:00 12/02/18 09:45 Spiriva Respimat IH 2 puff DAILY ELIJAH Administration ASSESSMENT/PLAN: 78 year-old female with a PMH significant for HTN, diastolic HF, and COPD, admitted for SOB. * SOB likely due to COPD exacerbation -CXR: unremarkable - afebrile, leukocytosis likely secondary to steroids- -SpO2 98%on room air at rest, SOTO,c/o sob with ambulation but O2 sat remains stable -finished course of azithro on 11/26; observe off antibiotics -will cont on IV steroids - Pulmonary following -continue Symbicort, Spiriva, Singular -duonebs scheduled - checked peak flow 150 *Hypertension- BP stable -continue Enalapril, nifedipine - will monitor BP *Diastolic heart failure- denies sob - euvolemic -continue home Lasix PO 40mg daily *Chronic Lung Nodules - Pt following with Dr. Addison * Elevated BS- no reported hx of DM - likely steroid induced - FS AC& HS - Insulin sliding scale - diet - consistent carb diet - will check Hgb Alc * Leukocytosis likely secondary to steroids -abnormal neutrophils - wbc 15>23>19 - wbc trending down, if goes up consider CT chest -CxR and UA negative - no evidence of cough, afebrile - will f/u on CBC - BC negative FEN Fluids: PO intake adequate Electrolytes: replete as indicated Nutrition: low sodium DVT prophylaxis: subq heparin Physical therapy Dispo: Full code. Visit type - Emergency Visit Emergency Visit: Yes ED Registration Date: 11/28/18 Care time: The patient presented to the Emergency Department on the above date and was hospitalized for further evaluation of their emergent condition. - New Patient This patient is new to me today: No - Critical Care Critical Care patient: No
--- NOTE | 2018-12-02 14:47 | PN ---
Progress Note (short form) - Note Progress Note: Feels overall better but still SOTO and some dry cough. No CP. Wheezing is better. Intake & Output 11/29/18 11/30/18 12/01/18 12/02/18 23:59 23:59 23:59 23:59 Intake Total 720 975 910 Balance 720 975 910 Weight 205 lb 0.3 oz 252 lb 255 lb 2 oz Last Vital Signs Temp Pulse Resp BP Pulse Ox 98.4 F 67 18 164/65 98 12/02/18 09:54 12/02/18 09:54 12/02/18 09:54 12/02/18 09:54 12/02/18 08:08 Active Medications Albuterol/Ipratropium (Duoneb -) 1 amp NEB RQID [facility] Last Admin: 12/02/18 11:47 Dose: 1 amp Budesonide/Formoterol Fumarate (Symbicort 160/4.5mcg -) 2 puff IH BID [facility] Last Admin: 12/02/18 09:45 Dose: 2 puff Enalapril Maleate (Vasotec -) 20 mg PO BID [facility] Last Admin: 12/02/18 09:44 Dose: 20 mg Furosemide (Lasix -) 40 mg PO DAILY [facility] Last Admin: 12/02/18 09:44 Dose: 40 mg Heparin Sodium (Porcine) (Heparin -) 5,000 unit SQ Q8H-IV ELIJAH Last Admin: 12/02/18 09:44 Dose: Not Given Insulin Aspart (Novolog Vial Sliding Scale -) 1 vial SQ ACHS [facility]; Protocol Last Admin: 12/02/18 11:50 Dose: 3 unit Methylprednisolone Sodium Succinate (Solu-Medrol -) 40 mg IVPUSH Q8H-IV ELIJAH Last Admin: 12/02/18 09:44 Dose: 40 mg Montelukast Sodium (Singulair -) 10 mg PO HS [facility] Last Admin: 12/01/18 21:32 Dose: 10 mg Nifedipine (Procardia Xl -) 60 mg PO DAILY [facility] Last Admin: 12/02/18 09:44 Dose: 60 mg Pantoprazole Sodium (Protonix -) 20 mg PO DAILY [facility] Last Admin: 12/02/18 09:44 Dose: 20 mg Tiotropium [place] (Spiriva Respimat) 2 puff IH DAILY [facility] Last Admin: 12/02/18 09:45 Dose: 2 puff Constitutional: Yes: Awake and alert, NAD Eyes: Yes: WNL HENT: Yes: WNL Neck: Yes: WNL Cardiovascular: Yes: Regular Rate and Rhythm, S1, S2 Respiratory: Yes: Bilateral coarse Rhonchi, no wheezes appreciated Gastrointestinal: Yes: Normal Bowel Sounds, Soft Extremities: Yes: WNL Edema: No Labs: Laboratory Results - last 24 hr 12/01/18 12/01/18 12/02/18 16:38 20:30 06:06 WBC RBC Hgb Hct MCV MCH MCHC RDW Plt Count MPV Absolute Neuts (auto) Neutrophils % Lymphocytes % Monocytes % Eosinophils % Basophils % POC Glucometer 271 219 194 Hemoglobin A1c % 12/02/18 12/02/18 12/02/18 08:00 08:00 11:53 WBC 19.4 H RBC 4.90 Hgb 14.6 Hct 45.0 MCV 92.0 MCH 29.8 MCHC 32.4 RDW 12.7 Plt Count 271 MPV 9.9 Absolute Neuts (auto) 18.7 Neutrophils % 96.1 H Lymphocytes % 2.8 L Monocytes % 0.7 L Eosinophils % 0.0 Basophils % 0.4 POC Glucometer 213 Hemoglobin A1c % 6.2 Problem List - Problems (1) COPD (chronic obstructive pulmonary disease) with acute bronchitis Code(s): J44.0 - CHRONIC OBSTRUCTIVE PULMON DISEASE W ACUTE LOWER RESP INFCT; J20.9 - ACUTE BRONCHITIS, UNSPECIFIED (2) Lung nodule, multiple Code(s): R91.8 - OTHER NONSPECIFIC ABNORMAL FINDING OF LUNG FIELD (3) Sciatica Code(s): M54.30 - SCIATICA, UNSPECIFIED SIDE Qualifiers: Laterality: left Qualified Code(s): M54.32 - Sciatica, left side (4) CHF (congestive heart failure) Code(s): I50.9 - HEART FAILURE, UNSPECIFIED Assessment/Plan IMP COPD/ASTHMA EXACERBATION H/O PULMONARY NODULES STABLE CHF MORBID OBESITY BILATERAL PULMONARY NODULES SCIATICA PLAN WEAN IV STEROIDS INHALED BRONCHODILATORS O2 MONITOR PEAK FLOW INCREASE AMBULATION Dr Cruz
[2018-12-02] MEDS: MONTELUKAST NA 10 MG TABLET PO SCH (21:07)
[2018-12-03] MEDS: HEPARIN NA (PORCINE) 5,000 UNITS/ML 1ML VIAL SQ SCH ×2 (01:48→10:11)
[2018-12-03] MEDS: methylPREDNISolone NA SUCC 40 MG/1 ML VIAL IVPUSH SCH (01:48)
--- NOTE | 2018-12-03 07:56 | DS ---
Physical Exam: SUBJECTIVE: Patient seen and examined OBJECTIVE: Vital Signs Period Temp Pulse Resp BP Sys/Pizarro Pulse Ox Last 24 Hr 97.4 F-98.4 F 53-80 18-20 136-178/59-73 97-100 PHYSICAL EXAM GENERAL: The patient is awake, alert, and fully oriented, in no acute distress. HEAD: Normal with no signs of trauma. EYES: PERRL, extraocular movements intact, sclera anicteric, conjunctiva clear. ENT: Ears normal, nares patent, oropharynx clear without exudates, moist mucous membranes. NECK: Trachea midline, full range of motion, supple. LUNGS: Breath sounds equal, clear to auscultation bilaterally, no wheezes, no crackles, no accessory muscle use. HEART: Regular rate and rhythm, S1, S2 without murmur, rub or gallop. ABDOMEN: Soft, nontender, nondistended, normoactive bowel sounds, no guarding, no rebound, no hepatosplenomegaly, no masses. EXTREMITIES: 2+ pulses, warm, well-perfused, no edema. NEUROLOGICAL: Cranial nerves II through XII grossly intact. Normal speech, gait not observed. PSYCH: Normal mood, normal affect. SKIN: Warm, dry, normal turgor, no rashes or lesions noted. LABS Laboratory Results - last 24 hr 12/02/18 12/02/18 12/02/18 08:00 08:00 11:53 WBC 19.4 H RBC 4.90 Hgb 14.6 Hct 45.0 MCV 92.0 MCH 29.8 MCHC 32.4 RDW 12.7 Plt Count 271 MPV 9.9 Absolute Neuts (auto) 18.7 Neutrophils % 96.1 H Lymphocytes % 2.8 L Monocytes % 0.7 L Eosinophils % 0.0 Basophils % 0.4 POC Glucometer 213 Hemoglobin A1c % 6.2 12/02/18 12/02/18 12/03/18 16:26 20:37 06:15 WBC RBC Hgb Hct MCV MCH MCHC RDW Plt Count MPV Absolute Neuts (auto) Neutrophils % Lymphocytes % Monocytes % Eosinophils % Basophils % POC Glucometer 241 257 236 Hemoglobin A1c % HOSPITAL COURSE: Date of Admission:11/28/18 Date of Discharge: 12/03/18 Minutes to complete discharge: 35 Discharge Summary Reason For Visit: ACUTE BRONCHITIS WITH CHRONIC OBSTRUCTIVE PULMONAR Current Active Problems COPD (chronic obstructive pulmonary disease) with acute bronchitis (Acute) Condition: Improved - Instructions Diet, Activity, Other Instructions: A prescription has been sent to your pharmacy for a prednisone taper. Take this medication as directed and be sure to finish all the medication. Referrals: Juan Diego Antonio MD [Primary Care Provider] - Disposition: HOME - Home Medications Comprehensive Discharge Medication List: Ambulatory Orders Furosemide 40 mg PO DAILY tablet 09/30/16 Omeprazole 20 mg PO DAILY #30 tablet.dr 09/09/17 Montelukast Sodium [Singulair] 10 mg PO DAILY 08/15/18 Tiotropium [place] [Spiriva] 18 mcg IH DAILY 08/15/18 Nifedipine ER [Procardia XL -] 60 mg PO DAILY #30 tab.er.24 08/17/18 Budesonide/Formeterol Fumarate [SYMBICORT 160/4.5mcg -] 1 inh PO DAILY 11/28/18 This patient is new to me today: No Emergency Visit: Yes ED Registration Date: 11/28/18 Care time: The patient presented to the Emergency Department on the above date and was hospitalized for further evaluation of their emergent condition. Critical Care patient: No - Discharge Referral Referred to [facility] No
[2018-12-03] MEDS ORDERED: methylPREDNISolone NA SUCC 40 MG/1 ML VIAL IVPUSH ONE (08:00)
[2018-12-03 08:17] LABS: BASO % 0.1 % (0-2.0); HEMATOCRIT 45.9 % (32.4-45.2); HEMOGLOBIN 14.9 GM/dl (10.7-15.3); MCH 29.7 pg (25.7-33.7); MCHC 32.5 g/dl (32.0-36.0); MEAN CELL VOLUME 91.3 fl (80-96); MEAN PLT VOLUME 9.9 fl (7.5-11.1); MONO % 0.3 % (3.8-10.2); NEUT % 96.6 % (42.8-82.8); PLATELET COUNT 251 K/MM3 (134-434); RBC 5.02 M/mm3 (3.60-5.2); RDW 12.5 % (11.6-15.6); WHITE BLOOD COUNT 17.4 K/mm3 (4.0-10.8)
[2018-12-03 09:24] LABS: CALCIUM 8.7 mg/dl (8.5-10); POTASSIUM 4.5 mmol/L (3.5-5.1)
[2018-12-03] MEDS: FUROSEMIDE 40 MG TABLET (FP) PO SCH (10:10)
[2018-12-03] MEDS: NIFEdipine E.R 60 MG TABLET (UD) PO SCH (10:11)
[2018-12-03] MEDS: ALBUTEROL SO4 2.5/IPRATROPIUM 0.5 INH SOL 3 ML VIAL.NEB. NEB SCH ×2 (10:11→12:00)
[2018-12-03] MEDS: PANTOPRAZOLE 20 MG TABLET (FP) PO SCH (10:11)
[2018-12-03] MEDS: TIOTROPIUM BROMIDE 2.5 MCG (SPIRIVA) RESPIMAT INHALER IH SCH (10:12)
[2018-12-03] MEDS: BUDESONIDE/FORMETEROL FUMARATE 160/4.5 mcg INHALER IH SCH (10:12)
[2018-12-03] MEDS: ENALAPRIL MALEATE 10 MG TABLET (FP) PO SCH (11:00)
[2018-12-03] MEDS: INSULIN SLIDING SCALE (NOVOLOG) 1 VIAL SQ SCH ×2 (11:00→14:28)
[2018-12-03 14:12] VITALS: BP 137/62; PULSE 74; TEMP 98.7
== END 2018-12-03 14:38 | disposition home or self-care (01) | DRG 191 ==
LOC: FER 12:21 → FM/S 13:25
PROVIDERS: ADMIT Internal Medicine; ATTEND Nurse Practitioner Acute Care
DX: J44.1 Chronic obstructive pulmonary disease with (acute) exacerbation (principal); I50.32 Chronic diastolic (congestive) heart failure; Z68.41 Body mass index [BMI] 40.0-44.9, adult; J20.9 Acute bronchitis, unspecified; J44.0 Chronic obstructive pulmonary disease with (acute) lower respiratory infection; I44.7 Left bundle-branch block, unspecified; I11.0 Hypertensive heart disease with heart failure; E66.01 Morbid (severe) obesity due to excess calories; R91.8 Other nonspecific abnormal finding of lung field; M54.32 Sciatica, left side
CPT/HCPCS: 36415; 71046-TC-FY; 80048; 80053; 81003; 81015; 82550; 82962; 83036; 83735; 84484; 85025; 87040; 87899; 93005; 94640; 97116-GP; 97161-GP; 99283-25; J1644

== ENCOUNTER 2019-02-18 09:35 | Emergency (ER) | payer OTHER ==
[2019-02-18 09:51] VITALS: BP 172/82; PULSE 79; TEMP 97.3; BMI 43.9
--- NOTE | 2019-02-18 10:05 | PDOC ---
History of Present Illness - General Chief Complaint: Injury Stated Complaint: FELL Time Seen by Provider: 02/18/19 10:05 History Source: Patient Exam Limitations: No Limitations Past History - Past Medical History Allergies/Adverse Reactions: Allergies Allergy/AdvReac Type Severity Reaction Status Date / Time No Known Allergies Allergy Verified 11/28/18 12:23 Home Medications: Ambulatory Orders Furosemide 40 mg PO DAILY tablet 09/30/16 Omeprazole 20 mg PO DAILY #30 tablet.dr 09/09/17 Montelukast Sodium [Singulair] 10 mg PO DAILY 08/15/18 Tiotropium [place] [Spiriva] 18 mcg IH DAILY 08/15/18 Nifedipine ER [Procardia XL -] 60 mg PO DAILY #30 tab.er.24 08/17/18 Budesonide/Formeterol Fumarate [SYMBICORT 160/4.5mcg -] 1 inh PO DAILY 11/28/18 Prednisone [Deltasone] 20 mg PO ASDIR #21 tablet 12/03/18 Asthma: Yes COPD: Yes CHF: Yes Disorders: Yes HTN: Yes Thyroid Disease: Yes (NODULE) Lung CA: Yes (LUNG NODULES) Other medical history: BACK PAIN - Surgical History Cholecystectomy: Yes (Cholecystectomy 1993) - Suicide/Smoking/Psychosocial Hx Smoking History: Never smoked Have you smoked in the past 12 months: No Hx Alcohol Use: No Drug/Substance Use Hx: No Substance Use Type: None Hx Substance Use Treatment: No *Physical Exam - Vital Signs Last Vital Signs Temp Pulse Resp BP Pulse Ox 97.3 F L 79 22 H 172/82 H 98 02/18/19 09:44 02/18/19 09:44 02/18/19 09:44 02/18/19 09:44 02/18/19 09:44 *DC/Admit/Observation/Transfer - Discharge Dispostion Condition at time of disposition: Good - Referrals Referrals: Juan Diego Antonio MD [Primary Care Provider] - - Patient Instructions - Post Discharge Activity
--- NOTE | 2019-02-18 10:17 | PDOC ---
Attending Attestation - Resident Resident Name: Mina Jorge - ED Attending Attestation I have performed the following: I have examined & evaluated the patient, The case was reviewed & discussed with the resident, I agree w/resident's findings & plan, Exceptions are as noted - HPI HPI: 02/18/19 10:09 02/18/19 12:06 - Physicial Exam PE: 02/18/19 12:07 - Medical Decision Making 02/18/19 12:08
[2019-02-18] MEDS ORDERED: ACETAMINOPHEN 325 MG TABLET (FP) PO ONE (10:22)
[2019-02-18] MEDS ORDERED: ACETAMINOPHEN 325 MG TABLET (FP) ONE (10:23)
--- NOTE | 2019-02-18 12:07 | PDOC ---
History of Present Illness - General Chief Complaint: Injury Stated Complaint: FELL Time Seen by Provider: 02/18/19 10:05 History Source: Patient Exam Limitations: No Limitations - History of Present Illness Initial Comments: 02/18/19 12:07 78 yo F with h/o htn copd home O2, CHF, sciatica, here wtih c/o fall. pt states she ambulated with cane normally. today had a fall, landed on her buttocks. did not hit her head. no c/o worsening lower back pain. no hip or knee pain. did not hit her head. happened around 4 am. has ambulated since for her fall. did not take anything for her pain. was recently referred for physical therapy for her back and started on prednisone. no numbness no weakness. pain is worse wtih movement. Past History - Past Medical History Allergies/Adverse Reactions: Allergies Allergy/AdvReac Type Severity Reaction Status Date / Time No Known Allergies Allergy Verified 11/28/18 12:23 Home Medications: Ambulatory Orders Furosemide 40 mg PO DAILY tablet 09/30/16 Montelukast Sodium [Singulair] 10 mg PO DAILY 08/15/18 Tiotropium [place] [Spiriva] 18 mcg IH DAILY 08/15/18 Budesonide/Formeterol Fumarate [SYMBICORT 160/4.5mcg -] 1 inh PO DAILY 11/28/18 Enalapril Maleate [Vasotec -] 10 mg PO DAILY 02/18/19 Nifedipine ER [Procardia Xl -] 30 mg PO DAILY 02/18/19 Prednisone 10 mg PO DAILY 02/18/19 Asthma: Yes COPD: Yes CHF: Yes Disorders: Yes HTN: Yes Thyroid Disease: Yes (NODULE) Lung CA: Yes (LUNG NODULES) Other medical history: BACK PAIN - Surgical History Cholecystectomy: Yes (Cholecystectomy 1993) - Suicide/Smoking/Psychosocial Hx Smoking History: Never smoked Have you smoked in the past 12 months: No Hx Alcohol Use: No Drug/Substance Use Hx: No Substance Use Type: None Hx Substance Use Treatment: No Review of Systems - Review of Systems Constitutional: No: Chills, Diaphoresis HEENTM: No: Eye Pain Respiratory: No: Cough, Orthopnea Cardiac (ROS): No: Chest Pain, Edema : No: Burning, Dysuria Musculoskeletal: Yes: Back Pain Integumentary: Yes: Bruising Neurological: No: Headache All Other Systems: Reviewed and Negative *Physical Exam - Vital Signs Last Vital Signs Temp Pulse Resp BP Pulse Ox 97.3 F L 79 22 H 172/82 H 98 02/18/19 09:44 02/18/19 09:44 02/18/19 09:44 02/18/19 09:44 02/18/19 09:44 - Physical Exam Comments: 02/18/19 10:12 awake alert nad head atraumatic. no cervical spine tenderness. no thoracic spinal tenderness. ext wwp pelvis stable. 5/5 lower ext strength. Paraspinal spasm pain lumbosacral area. sensation intact bilat lower ext. left foot fourth and third toe with eccymosis. ttp over mid phalynx. no foot / ankle ttp. no other eccymosis. 2+ dp/ pt pulses. 02/18/19 12:09 Procedures - Splinting Splint Location: Left: Foot ED Treatment Course - RADIOLOGY Radiology Studies Ordered: Category Date Time Status ANKLE-LEFT [RAD] Stat Radiology 02/18/19 10:22 Taken FOOT-LEFT [RAD] Stat Radiology 02/18/19 10:21 Taken SPINE-LUMBAR SACRAL [RAD] Stat Radiology 02/18/19 10:17 Taken - Medications Given in the ED: ED Medications Discontinued Medications Generic Name Dose Route Start Last Admin Trade Name Janet PRN Reason Stop Dose Admin Acetaminophen 650 mg 02/18/19 10:22 02/18/19 10:26 Tylenol - PO 02/18/19 10:23 650 mg ONCE ONE Administration Medical Decision Making - Medical Decision Making 02/18/19 12:08 02/18/19 10:14 78 yo F with h/o mult med problems chronic back pain here s/p fall. c/o worsening back pain. para spinal lumbosacral m spasm normal nuerological exam. did not hit head in fall. plan xray lumbosacral spine, tylenol reassess. xray spine ankle no acute fracture. foot xray toes visualization difficulty. will treat clinically for toe fracture based on exam. with ariadna tape. 02/18/19 12:52 ariadna tape to toes. told to remove tape in 48 hours to clean between toes. followup with dr lopez. *DC/Admit/Observation/Transfer Diagnosis at time of Disposition: Back pain of lumbosacaral region with sciatica, Fracture, toe - Discharge Dispostion Disposition: HOME Condition at time of disposition: Good Decision to Admit order: No - Referrals Referrals: Juan Diego Antonio MD [Primary Care Provider] - Neil Lopez MD [Staff Physician] - - Patient Instructions Printed Discharge Instructions: Toe Fracture, DI for Back Strain or Sprain Additional Instructions: you should follow up with your primary doctor. you can ariadna tape your toes together to help with pain control. wear a good flat sole shoe. for your back pain you can continue to take prednisone previously prescribed by your doctor. you can also take tylenol 500 every 6 hrs as needed. follow up with orthopedist. see referral for dr letty [facility]. you should also follow up with your primary doctor. return for any problem or concerns. - Post Discharge Activity
[2019-02-18] MEDS ORDERED: KETOROLAC TROMETHAMINE 15 MG/ML VIAL IM ONE (12:12)
[2019-02-18] MEDS ORDERED: KETOROLAC TROMETHAMINE 15 MG/ML VIAL ONE (12:39)
== END 2019-02-18 13:05 | disposition home or self-care (01) ==
LOC: FER 09:35 → SUPCPDRO 09:35 → FER 13:05
PROC: 3E0233Z Introduction of Anti-inflammatory into Muscle, Percutaneous Approach (ICD-10-PCS; principal; 2019-02-18)
DX: S92.505A Nondisplaced unspecified fracture of left lesser toe(s), initial encounter for closed fracture (principal); S82.892A Other fracture of left lower leg, initial encounter for closed fracture; W18.39XA Other fall on same level, initial encounter; Y93.89 Activity, other specified; Y92.009 Unspecified place in unspecified non-institutional (private) residence as the place of occurrence of the external cause; J44.9 Chronic obstructive pulmonary disease, unspecified; I25.10 Atherosclerotic heart disease of native coronary artery without angina pectoris; Z99.81 Dependence on supplemental oxygen
CPT/HCPCS: 72100-TC-FY; 73610-TC-LT-FY; 73630-TC-LT; 99281-25

== ENCOUNTER 2019-03-03 11:41 | Emergency (ER) | payer OTHER ==
[2019-03-03 11:45] VITALS: BP 155/77; PULSE 94; TEMP 97.8; BMI 34.3
--- NOTE | 2019-03-03 12:37 | PDOC ---
History of Present Illness - General Chief Complaint: Wound Stated Complaint: LEFT FOOT CELLULITIS Time Seen by Provider: 03/03/19 11:46 - History of Present Illness Initial Comments: 03/03/19 12:37 78yo F hx hypertension, COPD on home O2, CHF, sciatica presents to the emergency department for a wound check. Patient recently had a fall and injured her fourth and fifth toes (seen here on 02/18). She followed up with Dr. Lopez on Monday and was noted at that time to have cellulitis of the dorsum of her foot. Dr. Lopez prescribed Bactrim and instructed her to return to the emergency department for wound check today. She reports the redness has not extended past the marked lines and has decreased. She still reports tenderness palpation over the remaining area of redness. She denies any fevers or chills and she denies recent headaches, weakness, dizziness, chest pain, shortness of breath, nausea, vomiting, diarrhea. She has not missed any doses of the bactrim. Past History - Past Medical History Allergies/Adverse Reactions: Allergies Allergy/AdvReac Type Severity Reaction Status Date / Time No Known Allergies Allergy Verified 03/03/19 11:42 Home Medications: Ambulatory Orders Furosemide 40 mg PO DAILY tablet 09/30/16 Montelukast Sodium [Singulair] 10 mg PO DAILY 08/15/18 Tiotropium [place] [Spiriva] 18 mcg IH DAILY 08/15/18 Enalapril Maleate [Vasotec -] 10 mg PO DAILY 02/18/19 Nifedipine ER [Procardia Xl -] 30 mg PO DAILY 02/18/19 Guaifenesin [Mucinex] 600 mg PO BID 03/03/19 Omeprazole 20 mg PO DAILY 03/03/19 Prednisone 10 mg PO DAILY 03/03/19 Sulfamethoxazole/Trimethoprim [Bactrim Ds Tablet] 1 each PO BID 03/03/19 Asthma: Yes COPD: Yes CHF: Yes Disorders: Yes HTN: Yes Thyroid Disease: Yes (NODULE) Lung CA: Yes (LUNG NODULES) - Surgical History Cholecystectomy: Yes (Cholecystectomy 1993) - Suicide/Smoking/Psychosocial Hx Smoking History: Never smoked Have you smoked in the past 12 months: No Hx Alcohol Use: No Drug/Substance Use Hx: No Substance Use Type: None Hx Substance Use Treatment: No Review of Systems - Review of Systems Comments:: 03/03/19 12:50 GENERAL/CONSTITUTIONAL: No fever or chills. No weakness. HEAD, EYES, EARS, NOSE AND THROAT: No change in vision. No ear pain or discharge. No sore throat. GASTROINTESTINAL: No nausea, vomiting, diarrhea or constipation. GENITOURINARY: No dysuria, frequency, or change in urination. CARDIOVASCULAR: No chest pain or shortness of breath. RESPIRATORY: No cough, wheezing, or hemoptysis. MUSCULOSKELETAL: No joint or muscle swelling. No neck or back pain. +pain to L foot SKIN: No rash NEUROLOGIC: No headache, vertigo, loss of consciousness, or change in strength/ sensation. ENDOCRINE: No increased thirst. No abnormal weight change. HEMATOLOGIC/LYMPHATIC: No anemia, easy bleeding, or history of blood clots. ALLERGIC/IMMUNOLOGIC: No hives or skin allergy. *Physical Exam - Vital Signs Last Vital Signs Temp Pulse Resp BP Pulse Ox 97.8 F 94 H 20 155/77 97 03/03/19 11:42 03/03/19 11:42 03/03/19 11:42 03/03/19 11:42 03/03/19 11:42 - Physical Exam Comments: 03/03/19 12:51 GENERAL: Awake, alert, and fully oriented, in no acute distress HEAD: No signs of trauma EYES: PERRLA, EOMI, sclera anicteric, conjunctiva clear LUNGS: Breath sounds equal, clear to auscultation bilaterally. No wheezes, and no crackles HEART: Regular rate and rhythm, normal S1 and S2, no murmurs, rubs or gallops ABDOMEN: Soft, nontender, normoactive bowel sounds. No guarding, no rebound. No masses EXTREMITIES: Normal range of motion, no edema. No clubbing or cyanosis. No cords, erythema, or tenderness. WWP NEUROLOGICAL: Normal speech, cranial nerves intact, equal strength and sensation b/l SKIN: L dorsal foot with 5x5cm area adjacent to 3-5th digits with erythema and mild ttp. ERythema occupying <50% of the marked area (marked [address] Lopez). Otherwise, warm, Dry, normal turgor, no rashes or lesions noted. Medical Decision Making - Medical Decision Making 03/03/19 12:52 78yo F presents to the ED for wound check, found to have improving cellulitis on bactrim No systemic signs of infection PT well appearing Discussed case with Dr. Lopez, sent picture, recommends DC to continue bactrim as outpatient Plan discussed with pt and her daughters, they are in agreement I discussed the physical exam findings, ancillary test results and final diagnoses with the patient. I answered all of the patient's questions. The patient was satisfied with the care received and felt comfortable with the discharge plan and treatment plan. The patient will call their primary care physician within 24 hours to arrange follow-up and will return to the Emergency Department with any new, persistent or worsening symptoms. *DC/Admit/Observation/Transfer Diagnosis at time of Disposition: Cellulitis, Foot pain, left, Erythema of foot - Discharge Dispostion Disposition: HOME Condition at time of disposition: Stable Decision to Admit order: No - Referrals - Patient Instructions Printed Discharge Instructions: DI for Cellulitis -- Adult Additional Instructions: Your foot infection appears improved today. Continue to take the bactrim as prescribed Follow up with Dr. Lopez and your primary care doctor within 1 week Return to the emergency department if you have any new, worsening, or concerning symptoms - Post Discharge Activity - Attestations Physician Attestion: 03/03/19 12:56 I, Dr. Kalen Fischer MD, attest that this document has been prepared under my direction and personally reviewed by me in its entirety. I further attest, that it accurately reflects all work, treatment, procedures and medical decision -making performed by me.
== END 2019-03-03 13:03 | disposition home or self-care (01) ==
LOC: FER 11:41
DX: Z48.00 Encounter for change or removal of nonsurgical wound dressing (principal)
CPT/HCPCS: 99282-25

== ENCOUNTER 2019-05-27 11:32 | Inpatient (IN) | payer OTHER ==
--- NOTE | 2019-05-27 11:40 | PDOC ---
History of Present Illness - General Chief Complaint: Shortness of Breath Stated Complaint: SHORT OF BREATH - History of Present Illness Initial Comments: The pt is an 78F w/ a history of HTN, COPD (O2 PRN at night), history of HFpEF ( 50-55%) who presents for evaluation of 1 week of worsening SBO, SOTO, and productive cough. She was given Prednisone for the previous 3 days by her Requirements Engineer (Dr. Addison) but has had persistent symptoms. She was seen by Dr. Antonio today who stated she should be proceed to the ED for her persistent symptoms. The pt reports being compliant with her medications at home. She denies fevers/chills, chest pain, N/V/C/D, abdominal pain, rash, changes in sensation, falls, dysuria/hematuria 05/27/19 12:38 Past History - Past Medical History Allergies/Adverse Reactions: Allergies Allergy/AdvReac Type Severity Reaction Status Date / Time No Known Allergies Allergy Verified 03/03/19 11:42 Home Medications: Ambulatory Orders Furosemide 40 mg PO BID tablet 09/30/16 Montelukast Sodium [Singulair] 10 mg PO DAILY 08/15/18 Enalapril Maleate [Vasotec -] 10 mg PO DAILY 02/18/19 Nifedipine ER [Procardia Xl -] 30 mg PO DAILY 02/18/19 Prednisone 30 mg PO DAILY 03/03/19 Budesonide/Formeterol Fumarate [SYMBICORT 160/4.5mcg -] 1 inh PO BID 05/27/19 Guaifenesin AC [Robitussin AC -] 5 ml PO HS 05/27/19 Asthma: Yes COPD: Yes CHF: Yes Disorders: Yes HTN: Yes Thyroid Disease: Yes (NODULE) Lung CA: Yes (LUNG NODULES) - Surgical History Cholecystectomy: Yes (Cholecystectomy 1993) - Psycho Social/Smoking Cessation Hx Smoking History: Never smoked Have you smoked in the past 12 months: No Hx Alcohol Use: No Drug/Substance Use Hx: No Substance Use Type: None Hx Substance Use Treatment: No Review of Systems - Review of Systems Able to Perform ROS?: Yes Comments:: GENERAL/CONSTITUTIONAL: No fever or chills. No weakness HEAD, EYES, EARS, NOSE AND THROAT: No change in vision. No change in hearing. No sore throat CARDIOVASCULAR: +SOTO; denies chest pain RESPIRATORY: +SOB; productive cough; denies hemoptysis GASTROINTESTINAL: No nausea, vomiting, diarrhea or constipation GENITOURINARY: No dysuria, frequency, or change in urination MUSCULOSKELETAL: No joint or muscle swelling or pain. No neck or back pain SKIN: No rash NEUROLOGIC: No headache, vertigo, loss of consciousness, or change in strength/ sensation ENDOCRINE: No increased thirst. No abnormal weight change HEMATOLOGIC/LYMPHATIC: No anemia, easy bleeding ALLERGIC/IMMUNOLOGIC: No hives or skin allergy 05/27/19 11:40 Is the patient limited Colombian proficient: No *Physical Exam - Vital Signs Initial Vital Signs Temp Pulse Resp BP Pulse Ox 97.6 F 86 20 156/87 98 05/27/19 11:33 05/27/19 11:33 05/27/19 11:33 05/27/19 11:33 05/27/19 11:33 05/27/19 12:44 - Physical Exam GENERAL: Awake, alert, and oriented to person/place/time, in no acute distress HEAD: No signs of trauma, normocephalic, atraumatic EYES: PERRLA, EOMI, sclera anicteric, conjunctiva clear ENT: Hearing grossly normal, nares patent, oropharynx clear without exudates. No uvular deviation. Moist mucosa LUNGS: No distress, speaks in full sentences, decreased breath sounds at b/l bases, mild wheeze HEART: Regular rate and rhythm, normal S1 and S2, no murmurs appreciated, peripheral pulses normal and equal bilaterally ABDOMEN: Soft, nontender, normoactive bowel sounds. No guarding, no rebound EXTREMITIES: Normal inspection, Normal range of motion, 1+ BLE to distal 1/3 of lower extremity NEUROLOGICAL: Cranial nerves II through XII grossly intact. Normal speech, normal gait, no focal sensorimotor deficits SKIN: Warm, Dry 05/27/19 12:44 ED Treatment Course - LABORATORY CBC & Chemistry Diagram: 05/27/19 12:50 05/27/19 12:50 - RADIOLOGY Radiograph Interpretation: RAD/CHEST X-RAY PORTABLE A single apical lordotic view reveals a large heart, some congestive changes and elevated left hemidiaphragm. A discrete infiltrate or pneumothorax is not seen. Since the prior study of 11/28/2018 the bones and soft tissues appear unchanged. Impression: Large heart. Some congestive findings. 05/27/19 13:51 Medical Decision Making - Medical Decision Making The pt is an 78F w/ a history of HTN, COPD (O2 PRN at night), history of HFpEF ( 50-55%) who presents for evaluation of 1 week of worsening SBO, SOTO, and productive cough. Ddx: COPD exacerbation, HF exacerbation, consider infectious/ACS ED Course Labs sent ECG CXR Duo-nebs/Solumedrol given Pt currently saturating 96% on RA 05/27/19 12:45 ECG w/ LBBB; HR 78; sinus rhythm; QTc 467; LAD; similar to previous 05/27/19 13:08 CXR w/ cardiomegaly and pulmonary vascular congestion 05/27/19 13:51 Mild leukocytosis, no fever/tachycardia No anemia Lytes unremarkable No ABBY LFTs unremarkable Trop I neg Pt feels breathing moderately improved BNP pending 05/27/19 14:17 UA w/o evidence of UTI 05/27/19 14:27 Plan for admission for COPD exacerbation Consult orders for Dr. Antonio and Dr. Diop placed 05/27/19 14:[address] Golden, will give Lasix 40mg IV once 05/27/19 15:19 Pt reportedly being admitted to [facility] Page placed x3, awaiting call back Low sodium diet placed Lasix Q12H placed by Cardiology 05/27/19 17:40 Discharge - Discharge Information Problems reviewed: Yes Clinical Impression/Diagnosis: COPD (chronic obstructive pulmonary disease) Qualifiers: COPD type: unspecified COPD Qualified Code(s): J44.9 - Chronic obstructive pulmonary disease, unspecified CHF (congestive heart failure) Qualifiers: Heart failure type: other Qualified Code(s): I50.9 - Heart failure, unspecified Condition: Good - Admission Yes - Follow up/Referral - Patient Discharge Instructions - Post Discharge Activity
[2019-05-27] MEDS ORDERED: methylPREDNISolone NA SUCC 125 MG/2 ML VIAL IVPB ONE (12:03)
[2019-05-27] MEDS ORDERED: methylPREDNISolone NA SUCC 125 MG/2 ML VIAL ONE (12:42)
[2019-05-27] MEDS ORDERED: ALBUTEROL SO4 2.5/IPRATROPIUM 0.5 INH SOL 3 ML VIAL.NEB. NEB ONE (12:42)
[2019-05-27] MEDS: ALBUTEROL SO4 2.5/IPRATROPIUM 0.5 INH SOL 3 ML VIAL.NEB. NEB SCH ×3 (13:00→13:30)
--- NOTE | 2019-05-27 13:02 | PDOC ---
Attending Attestation - Resident Resident Name: Bradley Clemons - ED Attending Attestation I have performed the following: I have examined & evaluated the patient, The case was reviewed & discussed with the resident, I agree w/resident's findings & plan, Exceptions are as noted - HPI HPI: 05/27/19 12:59 78 F with h/o HTN, COPD, HFpEF, presenting with SOB. Pt reports 1 week of worsening SOB, SOTO, and cough. Pt was treated by Dr. Addison with prednisone but reports no improvement. Pt saw her PMD Dr. Antonio, who referred her to ED for further management. Pt denies CP. Denies F/C. Denies any change in her lower extremity edema. - Physicial Exam PE: 05/27/19 13:01 "GENERAL: Awake, alert, and fully oriented, in no acute distress. HEAD: No signs of trauma EYES: PERRLA, EOMI, sclera anicteric, conjunctiva clear ENT: Auricles normal inspection, hearing grossly normal, nares patent, oropharynx clear without exudates. Moist mucosa NECK: Nontender, no stepoffs, Normal ROM, supple, no lymphadenopathy, JVD, or masses LUNGS: + Bibasilar rales HEART: Regular rate and rhythm, normal S1 and S2, no murmurs, rubs or gallops ABDOMEN: Soft, nontender, normoactive bowel sounds. No guarding, no rebound. No masses EXTREMITIES: + 1 PE BLE, No clubbing or cyanosis. No cords, erythema, or tenderness NEUROLOGICAL: Cranial nerves II through XII intact. 5/5 strength and sensation in all extremities, Normal speech, normal gait, normal cerebellar function SKIN: Warm, Dry, normal turgor, no rashes or lesions noted. - Medical Decision Making 05/27/19 13:01 78 F with SOB, SOTO. Exam notable for rales and lower extremity edema. Suspicous for volume overload/CHF. Pt with no wheezing to suggest COPD. - Labs, trop, BNP - CXR - Admit
[2019-05-27 13:53] LABS: MEAN PLT VOLUME 11.2 fl (7.5-11.1)
[2019-05-27 13:56] LABS: BASO % 2.6 % (0-2.0); HEMATOCRIT 48.1 % (32.4-45.2); HEMOGLOBIN 16.3 GM/dl (10.7-15.3); LYMPH % 20.2 % (8-40); MCH 30.3 pg (25.7-33.7); MCHC 33.9 g/dl (32.0-36.0); MEAN CELL VOLUME 89.4 fl (80-96); MONO % 8.5 % (3.8-10.2); NEUT % 67.7 % (42.8-82.8); PLATELET COUNT 239 K/MM3 (134-434); RBC 5.38 M/mm3 (3.60-5.2); RDW 11.8 % (11.6-15.6); WHITE BLOOD COUNT 11.8 K/mm3 (4.0-10.8)
[2019-05-27 14:04] LABS: ALBUMIN 3.9 g/dl (3.4-5.0); BILIRUBIN,TOTAL 0.7 mg/dl (0.2-1); CALCIUM 9.5 mg/dl (8.5-10); CREATININE 0.8 mg/dl (0.55-1.3); POTASSIUM 3.7 mmol/L (3.5-5.1); TOT PROT 6.3 g/dl (6.4-8.2)
[2019-05-27] MEDS ORDERED: FUROSEMIDE 40 MG/4 ML INJECTABLE VIAL IVPUSH ONE (15:07)
[2019-05-27] MEDS ORDERED: FUROSEMIDE 40 MG/4 ML INJECTABLE VIAL ONE (15:18)
--- NOTE | 2019-05-27 15:23 | CON.CARD ---
Consult Consult Specialty:: Cardiology Referred by:: ER Reason for Consultation:: CHF - History of Present Illness Chief Complaint: shortness of breath History of Present Illness: 78F h/o HTN, COPD (PRN O2 overnight), chronic diastolic heart failure p/w shortness of breath x 10 days, worse with exertion. Sees Dr. Diop for cardio. Saw Dr. Addison recently, was started on prednisone and continued to feel short of breath. Saw Dr. Antonio today and was referred to ER for further evaluation. - History Source History Provided By: Patient - Past Medical History Cardio/Vascular: Yes: CHF. No: AFIB Pulmonary: Yes: Asthma, COPD, Other (CHRONIC STABLE PULMONARY NODULES) Musculoskeletal: Yes: Chronic low back pain Endocrine: Yes: Other (THYROID MASS) - Past Surgical History Past Surgical History: Yes: Cholecystectomy - Alcohol/Substance Use Hx Alcohol Use: No History of Substance Use: reports: None - Smoking History Smoking history: Never smoked Have you smoked in the past 12 months: No - Social History Usual Living Arrangement: Alone ADL: Independent Occupation: Retired- Benefits Counselor for [employer] History of Recent Travel: No Home Medications - Allergies Allergies/Adverse Reactions: Allergies Allergy/AdvReac Type Severity Reaction Status Date / Time No Known Allergies Allergy Verified 03/03/19 11:42 - Home Medications Home Medications: Ambulatory Orders Furosemide 40 mg PO DAILY tablet 09/30/16 Montelukast Sodium [Singulair] 10 mg PO DAILY 08/15/18 Enalapril Maleate [Vasotec -] 10 mg PO DAILY 02/18/19 Nifedipine ER [Procardia Xl -] 30 mg PO DAILY 02/18/19 Prednisone 30 mg PO DAILY 03/03/19 Budesonide/Formeterol Fumarate [SYMBICORT 160/4.5mcg -] 1 inh PO BID 05/27/19 Guaifenesin AC [Robitussin AC -] 5 ml PO HS 05/27/19 Family Medical History Family History: Unremarkable Review of Systems - Review of Systems Constitutional: reports: No Symptoms Eyes: reports: No Symptoms HENT: reports: No Symptoms Neck: reports: No Symptoms Cardiovascular: reports: No Symptoms Respiratory: reports: No Symptoms Gastrointestinal: reports: No Symptoms Genitourinary: reports: No Symptoms Musculoskeletal: reports: No Symptoms Integumentary: reports: No Symptoms Neurological: reports: No Symptoms Endocrine: reports: No Symptoms Hematology/Lymphatic: reports: No Symptoms Psychiatric: reports: No Symptoms Vital Signs: Vital Signs Temperature 97.6 F 05/27/19 14:29 Pulse Rate 79 05/27/19 14:29 Respiratory Rate 22 H 05/27/19 14:29 Blood Pressure 150/85 05/27/19 14:29 O2 Sat by Pulse Oximetry (%) 96 05/27/19 14:29 Constitutional: Yes: No Distress, Calm Eyes: Yes: Conjunctiva Clear, EOM Intact HENT: Yes: Atraumatic, Normocephalic Neck: Yes: Supple, Trachea Midline Respiratory: Yes: Regular, Rales (bases bilaterally) Gastrointestinal: Yes: Normal Bowel Sounds, Soft Cardiovascular: Yes: Regular Rate and Rhythm JVD: Yes Heart Sounds: Yes: S1, S2 Extremities: No: Cold Edema: Yes Edema: LLE: 1+, RLE: 1+ Integumentary: No: Jaundice Neurological: Yes: Alert, Oriented Psychiatric: No: Agitated - Other Data Labs, Other Data: CBC, BMP 05/27/19 12:50 05/27/19 12:50 Troponin, BNP 05/27/19 12:50 Troponin I 0.04 Troponin, BNP 05/27/19 12:50 Troponin I 0.04 Assessment/Plan EKG: sinus, LBBB, similar to prior CXR: +congestive changes echo 08/2018 tds, nl LV/RV function, tr TR Shortness of breath, acute diastolic HF exacerbation - CXR with congestive changes, +JVD and edema on exam - continue IV lasix, monitor Cr, lytes, daily weights - echo ordered COPD - manage per pulm HTN - stable, cont home meds
--- NOTE | 2019-05-27 21:12 | HP ---
Admitting History and Physical - Primary Care Physician PCP: Dr. Montes - Admission Chief Complaint: SOB History of Present Illness: 78F w/ a history of HTN, COPD (O2 PRN at night), history of HFpEF (50-55%) who presents for evaluation of 1 week of worsening SBO, SOTO, and productive cough. She was given Prednisone for the previous 3 days by her [employer] (Dr. Addison ) but has had persistent symptoms. She was seen by Dr. Antonio today who stated she should be proceed to the ED for her persistent symptoms. The pt reports being compliant with her medications at home. She denies fevers/chills, chest pain, N/V/C/D, abdominal pain, rash, changes in sensation, falls, dysuria/hematuria History Source: Patient Limitations to Obtaining History: No Limitations - Past Medical History Cardiovascular: Yes: AFIB, CHF, HTN, Other (Lung nodules) Pulmonary: Yes: COPD, Other (CHRONIC STABLE PULMONARY NODULES) ...: No Musculoskeletal: Yes: Chronic low back pain Endocrine: Yes: Other (THYROID MASS) - Past Surgical History Past Surgical History: Yes: Cholecystectomy - Smoking History Smoking history: Never smoked Have you smoked in the past 12 months: No - Alcohol/Substance Use Hx Alcohol Use: No History of Substance Use: reports: None - Social History Usual Living Arrangement: Yes: Alone ADL: Independent Occupation: Retired- Benefits Counselor for [employer] History of Recent Travel: No Home Medications - Allergies Allergies/Adverse Reactions: Allergies Allergy/AdvReac Type Severity Reaction Status Date / Time No Known Allergies Allergy Verified 03/03/19 11:42 - Home Medications Home Medications: Ambulatory Orders Furosemide 40 mg PO BID tablet 09/30/16 Montelukast Sodium [Singulair] 10 mg PO DAILY 08/15/18 Enalapril Maleate [Vasotec -] 10 mg PO DAILY 02/18/19 Nifedipine ER [Procardia Xl -] 30 mg PO DAILY 02/18/19 Prednisone 30 mg PO DAILY 03/03/19 Budesonide/Formeterol Fumarate [SYMBICORT 160/4.5mcg -] 1 inh PO BID 05/27/19 Guaifenesin AC [Robitussin AC -] 5 ml PO HS 05/27/19 Family Medical History Family Hx Coronary Artery Disease: Father Family Hx Nuerologic Problems: Mother (Mother ( CVA)) Review of Systems - Review of Systems Constitutional: reports: No Symptoms Eyes: reports: No Symptoms HENT: reports: No Symptoms Neck: reports: No Symptoms Cardiovascular: reports: Edema, Shortness of Breath Respiratory: reports: SOB Gastrointestinal: reports: No Symptoms Genitourinary: reports: No Symptoms Breasts: reports: Other (rash under b/l breast) Neurological: reports: No Symptoms Endocrine: reports: No Symptoms Hematology/Lymphatic: reports: No Symptoms Psychiatric: reports: No Symptoms Physical Examination Vital Signs: Vital Signs Temperature 97.9 F 05/27/19 16:44 Pulse Rate 68 05/27/19 16:44 Respiratory Rate 20 05/27/19 16:44 Blood Pressure 126/68 05/27/19 16:44 O2 Sat by Pulse Oximetry (%) 97 05/27/19 16:44 Constitutional: Yes: No Distress, Calm Eyes: Yes: Conjunctiva Clear, EOM Intact HENT: Yes: Atraumatic, Normocephalic Neck: Yes: Supple, Trachea Midline Cardiovascular: Yes: S1, S2 Respiratory: Yes: Regular, On Nasal O2, SOB, Wheezes Gastrointestinal: Yes: Normal Bowel Sounds, Soft Musculoskeletal: Yes: WNL Extremities: Yes: WNL Edema: Yes Edema: LLE: 3+, RLE: 3+ Peripheral Pulses WNL: Yes Integumentary: Yes: Rash (b/l breast rash, left flank grape cluster like rash ? Shingles) Neurological: Yes: Alert, Oriented Labs: CBC, BMP 05/27/19 12:50 05/27/19 12:50 Imaging - Results Chest X-ray: Report Reviewed (CXR: cardiomegaly and pulmonary vascular congestion) EKG: Report Reviewed (ECG w/ LBBB; HR 78; sinus rhythm; QTc 467) Other: Report Reviewed (Mild leukocytosis, no fever/tachycardia) Problem List - Problems (1) Acute exacerbation of COPD with asthma Code(s): J44.1 - CHRONIC OBSTRUCTIVE PULMONARY DISEASE W (ACUTE) EXACERBATION; J45.901 - UNSPECIFIED ASTHMA WITH (ACUTE) EXACERBATION (2) Acute CHF (congestive heart failure) Code(s): I50.9 - HEART FAILURE, UNSPECIFIED (3) Shingles Code(s): B02.9 - ZOSTER WITHOUT COMPLICATIONS (4) Rash and nonspecific skin eruption Code(s): R21 - RASH AND OTHER NONSPECIFIC SKIN ERUPTION (5) HTN (hypertension) Code(s): I10 - ESSENTIAL (PRIMARY) HYPERTENSION Assessment/Plan 78F w/ a history of HTN, COPD (O2 PRN at night), history of HFpEF (50-55%) who presents for evaluation of 1 week of worsening SBO, SOTO, and productive cough. COPD excerbation vs CHF exacerbation telemetry, cardiac monitoring EKG: sinus, LBBB, similar to prior CXR: +congestive changes BNP: 504.2 echo 08/2018 tds, nl LV/RV function, tr TR Mild leukocytosis, no fever/tachycardia UA: negative trop: 0.04 --> follow up #2 - seen by cardio, follow up repeat ECHO - continue with IV lasix BID - Continue with nebulizer q6 hours - Continue with robitussin 10 ml q8h PRN - Continue with solu-mederol 40 mg BID - continue Symbicort, Singulair - o2 via NC, monitor Spo2 - follow up pulmonary consult in AM #Left flank side shingles #B/L breast fold rash contact precaution - continue with Acyclovir - continue with Nystatin cream - gabapentin 100mg TID for 1 week #Hypertension -continue Enalapril, nifedipine FEN -Fluids: PO intake adequate -Electrolytes: replete as indicated -DIET: low sodium DVT PPX: SQ Heparin Dispo: tele inpatient Visit type - Emergency Visit Emergency Visit: Yes ED Registration Date: 05/27/19 Care time: The patient presented to the Emergency Department on the above date and was hospitalized for further evaluation of their emergent condition. - New Patient This patient is new to me today: Yes Date on this admission: 05/27/19 - Critical Care Critical Care patient: No
[2019-05-27] MEDS ORDERED: ACETAMINOPHEN 325 MG TABLET (FP) PO PRN (21:21)
[2019-05-27] MEDS ORDERED: guaiFENesin/CODEINE 10 ML UNIT-DOSE CUPS PO PRN (21:26)
[2019-05-27] MEDS: ACYCLOVIR 400 MG TABLET PO SCH (22:13)
[2019-05-27] MEDS: GABAPENTIN 100 MG CAPSULE (FP) PO SCH (22:13)
[2019-05-27] MEDS: HEPARIN NA (PORCINE) 5,000 UNITS/ML 1ML VIAL SQ SCH (22:13)
[2019-05-27] MEDS: methylPREDNISolone NA SUCC 40 MG/1 ML VIAL IVPUSH SCH (22:13)
[2019-05-27] MEDS: BUDESONIDE/FORMETEROL FUMARATE 160/4.5 mcg INHALER IH SCH (22:46)
[2019-05-27] MEDS: NYSTATIN 100,000 UNIT/GM TOPICAL CREAM 15 GM TUBE TP SCH (22:46)
[2019-05-28] MEDS: FUROSEMIDE 40 MG/4 ML INJECTABLE VIAL IVPB SCH ×2 (06:36→13:24)
[2019-05-28] MEDS: GABAPENTIN 100 MG CAPSULE (FP) PO SCH ×3 (06:36→21:47)
[2019-05-28] MEDS: HEPARIN NA (PORCINE) 5,000 UNITS/ML 1ML VIAL SQ SCH ×3 (06:36→21:46)
[2019-05-28] MEDS: ACYCLOVIR 400 MG TABLET PO SCH ×3 (06:36→21:47)
[2019-05-28 08:05] LABS: HEMATOCRIT 45.7 % (32.4-45.2); HEMOGLOBIN 15.3 GM/dl (10.7-15.3); MCH 30.6 pg (25.7-33.7); MCHC 33.5 g/dl (32.0-36.0); MEAN CELL VOLUME 91.5 fl (80-96); MEAN PLT VOLUME 10.8 fl (7.5-11.1); PLATELET COUNT 219 K/MM3 (134-434); RBC 4.99 M/mm3 (3.60-5.2); RDW 12.3 % (11.6-15.6); WHITE BLOOD COUNT 9.3 K/mm3 (4.0-10.8)
[2019-05-28 08:11] LABS: CREATININE 0.9 mg/dl (0.55-1.3); POTASSIUM 4.1 mmol/L (3.5-5.1)
[2019-05-28] MEDS ORDERED: PT OWN MED DRAWER 7, Y5N ONE ×2 (09:16→21:31)
[2019-05-28] MEDS: MONTELUKAST NA 10 MG TABLET PO SCH (09:47)
[2019-05-28] MEDS: BUDESONIDE/FORMETEROL FUMARATE 160/4.5 mcg INHALER IH SCH ×2 (09:47→21:47)
[2019-05-28] MEDS: ALBUTEROL SO4 2.5/IPRATROPIUM 0.5 INH SOL 3 ML VIAL.NEB. NEB SCH ×4 (09:47→20:10)
[2019-05-28] MEDS: NYSTATIN 100,000 UNIT/GM TOPICAL CREAM 15 GM TUBE TP SCH ×2 (09:47→21:47)
[2019-05-28] MEDS: methylPREDNISolone NA SUCC 40 MG/1 ML VIAL IVPUSH SCH ×2 (09:47→21:47)
[2019-05-28] MEDS: NIFEdipine E.R. 30 MG TABLET (FP) PO SCH (09:47)
[2019-05-28] MEDS: ENALAPRIL MALEATE 10 MG TABLET (FP) PO SCH (09:47)
--- NOTE | 2019-05-28 09:49 | EKG ---
Test Reason : Blood Pressure : / mmHG Vent. Rate : 078 BPM Atrial Rate : 078 BPM P-R Int : 184 ms QRS Dur : 142 ms QT Int : 410 ms P-R-T Axes : 090 -34 111 degrees QTc Int : 467 ms NORMAL SINUS RHYTHM LEFT AXIS DEVIATION LEFT BUNDLE BRANCH BLOCK ABNORMAL ECG WHEN COMPARED WITH ECG OF 28-NOV-2018 12:41, PREMATURE VENTRICULAR COMPLEXES ARE NO LONGER PRESENT Confirmed by MD Shaheen, Artemio ([id number]) on 05/28/2019 9:48:55 AM Referred By: Confirmed By:Artemio Jamison MD
--- NOTE | 2019-05-28 14:15 | PN ---
Progress Note, Physician Chief Complaint: sob History of Present Illness: sob no better. coughing a lot tonight. feels phlegm in chest but it's not coming up. no wheezing. developed pain lateral thorax under breast curvature--diagnosed with shingles here. no leg swelling. urinating a lot but feels similar to when she was home taking lasix 40 bid. - Current Medication List Current Medications: Active Medications Acetaminophen (Tylenol -) 650 mg PO Q6H PRN PRN Reason: PAIN LEVEL 1-5 Acyclovir (Zovirax -) 400 mg PO TID [facility] Stop: 05/31/19 23:59 Last Admin: 05/28/19 13:25 Dose: 400 mg Albuterol/Ipratropium (Duoneb -) 1 amp NEB RQID [facility] Last Admin: 05/28/19 13:24 Dose: 1 amp Budesonide/Formoterol Fumarate (Symbicort 160/4.5mcg -) 1 puff IH BID [facility] Last Admin: 05/28/19 09:47 Dose: 1 puff Enalapril Maleate (Vasotec -) 10 mg PO DAILY [facility] Last Admin: 05/28/19 09:47 Dose: 10 mg Furosemide (Lasix Injection -) 40 mg IVPB BID@0600,1400 [facility] Last Admin: 05/28/19 13:24 Dose: 40 mg Gabapentin (Neurontin -) 100 mg PO TID [facility] Stop: 05/31/19 23:59 Last Admin: 05/28/19 13:25 Dose: 100 mg Guaifenesin/Codeine Phosphate (Robitussin Ac -) 10 ml PO Q8H PRN PRN Reason: COUGH Heparin Sodium (Porcine) (Heparin -) 5,000 unit SQ TID [facility] Last Admin: 05/28/19 13:25 Dose: 5,000 unit Methylprednisolone Sodium Succinate (Solu-Medrol -) 40 mg IVPUSH BID [facility] Last Admin: 05/28/19 09:47 Dose: 40 mg Montelukast Sodium (Singulair -) 10 mg PO DAILY [facility] Last Admin: 05/28/19 09:47 Dose: 10 mg Nifedipine (Procardia Xl -) 30 mg PO DAILY [facility] Last Admin: 05/28/19 09:47 Dose: 30 mg Nystatin (Mycostatin Cream -) 1 applic TP BID [facility] Last Admin: 05/28/19 09:47 Dose: 1 applic - Objective Vital Signs: Vital Signs Temperature 98.6 F 05/28/19 09:48 Pulse Rate 73 05/28/19 09:48 Respiratory Rate 18 05/28/19 09:48 Blood Pressure 145/65 05/28/19 09:48 O2 Sat by Pulse Oximetry (%) 98 05/28/19 10:00 Constitutional: Yes: No Distress, Calm, Obese Cardiovascular: Yes: Regular Rate and Rhythm, S1, S2. No: JVD (tds neck habitus ), Gallop, Murmur Respiratory: Yes: Regular. No: CTA Bilaterally, Accessory Muscle Use, Rales, Rhonchi, Wheezes Extremities: No: Cold Edema: No Neurological: Yes: Alert, Oriented Psychiatric: No: Agitated Labs: CBC, BMP 05/28/19 07:29 05/28/19 07:29 Assessment/Plan EKG: sinus, LBBB, similar to prior CXR: +congestive changes Echo 08/2018 tds, nl LV/RV function, tr TR Echo 04/2019 (office): 1. This was a technically difficult study with suboptimal views--patient declined Definity contrast administration. 2. The left ventricular cavity size is probably normal. 3. Overall left ventricular systolic function is probably low-normal with a visually estimated EF of 50 vs 50 - 55 %. Mi's calculation was not feasible. 4. LA pressure could not be assessed, secondary to suboptimal mitral annulus TDI doppler recordings and LA volume assessment. 5. The right ventricle is normal in size and function, not well seen. 6. The left atrium was not well visualized. 7. There is no evidence of significant aortic stenosis, gradients are not significantly changed vs prior study of 09/2017. 8. Unable to estimate RVSP due to inadequate TR jet spectral doppler profile. 9. There is a trivial pericardial effusion present, consistent with physiologic fluid. Echo 05/30: nl LV/RV. mild AI. no RVSP acute diastolic HF exacerbation, acute bronchitis/a.e. copd - CXR with congestive changes, +JVD and edema on exam initially per consult note. - BNP 500 (ranges 500-1200). wt 245 lbs today, from 256 discharge in 11/28. - on lasix 40 qd at home, giving 40 iv bid here. notes diuretic effect. wt down slightly today vs yest (note pt states yesterday's was measured, not "pt stated "). labs stable. continue same lasix. - suspect ongoing airways reactivity/copd--pulmonary folowing - echo unchanged, unrevealing - should have outpt sleep apnea eval if pt willing HTN - stable, cont home meds
--- NOTE | 2019-05-28 15:25 | ECHO ---
Version: 1 Name: CARLOS BROWN Exam: Adult Echocardiogram Study Date: 05/28/2019, 2:11 PM Age: 78 Years MMode/2D Measurements & Calculations IVSd: 1.21 cm LVIDs: 2.7 cm LVIDd: 4.8 cm LVPWd: 0.89 cm LVOT diam: 2.02 cm Ao root diam: 2.8 cm LA dimension: 2.8 cm Doppler Measurements & Calculations MV E max nely: 86.4 cm/sec MV A max nely: 123.0 cm/sec MV E/A: 0.70 Ao max P.0 mmHg ANTHONY(I,D): 1.08 cm Ao mean P.8 mmHg LV V1 mean: 58.4 cm/sec Ao V2 max: 200.0 cm/sec LV V1 mean P.58 mmHg Procedure A complete two-dimensional transthoracic echocardiogram was performed (2D, M-mode, Doppler and color flow Doppler). Left Ventricle The left ventricular size, thickness and function are normal. Ejection Fraction = 55%. E/A reversal consistent with but not diagnostic of poor LV compliance. Septal motion is consistent with conductio n abnormality. Regional wall motion abnormalities cannot be excluded due to limited visualization. Right Ventricle The right ventricle is normal in size and function. Atria Normal left and right atrial size and function. Mitral Valve There is mild mitral annular calcification. There is mild to moderate mitral valve thickening. There is trace to mild mitral regurgitation. Tricuspid Valve The tricuspid valve is not well visualized. There is trace tricuspid regurgitation. There was insuff icient TR detected to calculate RV systolic pressure. Aortic Valve There is moderate aortic valve thickening. Mild aortic regurgitation. Pulmonic Valve The pulmonic valve is not well visualized. Great Vessels The aortic root is normal size. Pericardium/Pleura There is no pericardial effusion. There is no pleural effusion. Summary Statements The left ventricular size, thickness and function are normal Ejection Fraction = 55%. Septal motion is consistent with conduction abnormality. Regional wall motion abnormalities cannot be excluded due to limited visualization. The right ventricle is normal in size and function. There is mild mitral annular calcification. There is mild to moderate mitral valve thickening. There is trace to mild mitral regurgitation. There is trace tricuspid regurgitation. There is moderate aortic valve thickening. Mild aortic regurgitation. MD Srinath Ruggiero 05/28/2019, 3:24 PM Ordering Physician: Ginna Golden Performed By: Thelma Aceves
[2019-05-29] MEDS: GABAPENTIN 100 MG CAPSULE (FP) PO SCH ×3 (06:39→22:04)
[2019-05-29] MEDS: FUROSEMIDE 40 MG/4 ML INJECTABLE VIAL IVPB SCH ×2 (06:39→14:00)
[2019-05-29] MEDS: HEPARIN NA (PORCINE) 5,000 UNITS/ML 1ML VIAL SQ SCH ×5 (06:39→22:04)
[2019-05-29] MEDS: ACYCLOVIR 400 MG TABLET PO SCH (06:40)
--- NOTE | 2019-05-29 08:25 | PN ---
Progress Note, Physician - Current Medication List Current Medications: Active Medications Acetaminophen (Tylenol -) 650 mg PO Q6H PRN PRN Reason: PAIN LEVEL 1-5 Acyclovir (Zovirax -) 400 mg PO TID [facility] Stop: 05/31/19 23:59 Last Admin: 05/29/19 06:40 Dose: 400 mg Albuterol/Ipratropium (Duoneb -) 1 amp NEB RQID [facility] Last Admin: 05/28/19 20:10 Dose: 1 amp Budesonide/Formoterol Fumarate (Symbicort 160/4.5mcg -) 1 puff IH BID [facility] Last Admin: 05/28/19 21:47 Dose: 1 puff Enalapril Maleate (Vasotec -) 10 mg PO DAILY [facility] Last Admin: 05/28/19 09:47 Dose: 10 mg Furosemide (Lasix Injection -) 40 mg IVPB BID@0600,1400 [facility] Last Admin: 05/29/19 06:39 Dose: 40 mg Gabapentin (Neurontin -) 100 mg PO TID [facility] Stop: 05/31/19 23:59 Last Admin: 05/29/19 06:39 Dose: 100 mg Guaifenesin/Codeine Phosphate (Robitussin Ac -) 10 ml PO Q8H PRN PRN Reason: COUGH Heparin Sodium (Porcine) (Heparin -) 5,000 unit SQ TID [facility] Last Admin: 05/29/19 06:52 Dose: Not Given Methylprednisolone Sodium Succinate (Solu-Medrol -) 40 mg IVPUSH BID [facility] Last Admin: 05/28/19 21:47 Dose: 40 mg Montelukast Sodium (Singulair -) 10 mg PO DAILY [facility] Last Admin: 05/28/19 09:47 Dose: 10 mg Nifedipine (Procardia Xl -) 30 mg PO DAILY [facility] Last Admin: 05/28/19 09:47 Dose: 30 mg Nystatin (Mycostatin Cream -) 1 applic TP BID [facility] Last Admin: 05/28/19 21:47 Dose: 1 applic - Objective Vital Signs: Vital Signs Temperature 97.5 F L 05/29/19 06:00 Pulse Rate 59 L 05/29/19 06:00 Respiratory Rate 20 05/29/19 06:00 Blood Pressure 139/67 05/29/19 06:00 O2 Sat by Pulse Oximetry (%) 94 L 05/29/19 06:00 Cardiovascular: Yes: S1, S2 Respiratory: Yes: On Nasal O2, Rales Gastrointestinal: Yes: Normal Bowel Sounds, Soft Edema: No Labs: CBC, BMP 05/28/19 07:29 05/28/19 07:29 Problem List - Problems (1) Acute CHF (congestive heart failure) Assessment/Plan: -telemetry, cardiac monitoring --CXR: +congestive changes -BNP: 504.2 -trop: 0.04 --> #2 0.04 - seen by cardio, follow up repeat ECHO - continue with IV lasix BID -follow up cxr and lytes Code(s): I50.9 - HEART FAILURE, UNSPECIFIED (2) Acute exacerbation of COPD with asthma Assessment/Plan: - Continue with nebulizer q6 hours - Continue with robitussin 10 ml q8h PRN - solu-mederol 40 mg BID--20 bid - continue Symbicort, Singulair - o2 via NC, monitor Spo2 - pulmonary consult Code(s): J44.1 - CHRONIC OBSTRUCTIVE PULMONARY DISEASE W (ACUTE) EXACERBATION; J45.901 - UNSPECIFIED ASTHMA WITH (ACUTE) EXACERBATION (3) HTN (hypertension) Assessment/Plan: -continue Enalapril, nifedipine Code(s): I10 - ESSENTIAL (PRIMARY) HYPERTENSION (4) Shingles Assessment/Plan: - contact precaution - continue with Acyclovir - ID consult - gabapentin 100mg TID for 1 week Code(s): B02.9 - ZOSTER WITHOUT COMPLICATIONS
[2019-05-29] MEDS: ALBUTEROL SO4 2.5/IPRATROPIUM 0.5 INH SOL 3 ML VIAL.NEB. NEB SCH ×4 (09:01→19:50)
[2019-05-29] MEDS ORDERED: PT OWN MED DRAWER 7, Y5N ONE (09:34)
[2019-05-29] MEDS: ENALAPRIL MALEATE 10 MG TABLET (FP) PO SCH (09:45)
[2019-05-29] MEDS: methylPREDNISolone NA SUCC 40 MG/1 ML VIAL IVPUSH SCH (09:45)
[2019-05-29] MEDS: MONTELUKAST NA 10 MG TABLET PO SCH (09:45)
[2019-05-29] MEDS: NIFEdipine E.R. 30 MG TABLET (FP) PO SCH (09:46)
[2019-05-29] MEDS: BUDESONIDE/FORMETEROL FUMARATE 160/4.5 mcg INHALER IH SCH ×2 (09:47→22:05)
[2019-05-29] MEDS: NYSTATIN 100,000 UNIT/GM TOPICAL CREAM 15 GM TUBE TP SCH ×2 (09:48→22:05)
--- NOTE | 2019-05-29 12:43 | CON.PULM ---
Consult Consult Specialty:: PULMONARY Referred by:: RUTH Reason for Consultation:: COPD - History of Present Illness Chief Complaint: SOB/SOTO History of Present Illness: 78F h/o HTN, COPD (PRN O2 overnight), chronic diastolic heart failure p/w shortness of breath x 10 days, worse with exertion. Sees Dr. Diop for cardio. Saw Dr. Addison recently, was started on prednisone and continued to feel short of breath. Saw me on Monday and was referred to ER for further evaluation. - History Source History Provided By: Patient, Medical Record Limitations to Obtaining History: No Limitations - Past Medical History EVENT [employer]ES: No: Alzheimer's Cardio/Vascular: Yes: AFIB, CHF, HTN, Other (Lung nodules) Pulmonary: Yes: COPD, Other (CHRONIC STABLE PULMONARY NODULES) ...: No Musculoskeletal: Yes: Chronic low back pain Endocrine: Yes: Other (THYROID MASS) - Past Surgical History Past Surgical History: Yes: Cholecystectomy - Alcohol/Substance Use Hx Alcohol Use: No History of Substance Use: reports: None - Smoking History Smoking history: Never smoked Have you smoked in the past 12 months: No - Social History Usual Living Arrangement: Alone ADL: Independent 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: No Home Medications - Allergies Allergies/Adverse Reactions: Allergies Allergy/AdvReac Type Severity Reaction Status Date / Time No Known Allergies Allergy Verified 03/03/19 11:42 - Home Medications Home Medications: Ambulatory Orders Furosemide 40 mg PO BID tablet 09/30/16 Montelukast Sodium [Singulair] 10 mg PO DAILY 08/15/18 Enalapril Maleate [Vasotec -] 10 mg PO DAILY 02/18/19 Nifedipine ER [Procardia Xl -] 30 mg PO DAILY 02/18/19 Prednisone 30 mg PO DAILY 03/03/19 Budesonide/Formeterol Fumarate [SYMBICORT 160/4.5mcg -] 1 inh PO BID 05/27/19 Guaifenesin AC [Robitussin AC -] 5 ml PO HS 05/27/19 Family Medical History Family History: Unremarkable Review of Systems - Review of Systems Constitutional: denies: Fever Eyes: denies: Blurred Vision HENT: denies: Difficult Swallowing Neck: denies: Decreased ROM Cardiovascular: reports: Chest Pain Respiratory: reports: Cough, Exercise Intolerance, SOB, SOB on Exertion, Wheezing. denies: Hemoptysis Gastrointestinal: denies: Abdominal Pain Genitourinary: denies: Burning Physical Exam Vital Sings: Vital Signs Temperature 97.3 F L 05/29/19 10:00 Pulse Rate 64 05/29/19 10:00 Respiratory Rate 19 05/29/19 10:00 Blood Pressure 145/64 05/29/19 10:00 O2 Sat by Pulse Oximetry (%) 100 05/29/19 10:00 Constitutional: Yes: Calm Eyes: Yes: EOM Intact HENT: Yes: Normocephalic Neck: Yes: Trachea Midline Cardiovascular: Yes: Regular Rate and Rhythm Respiratory: Yes: Diminished Gastrointestinal: Yes: Normal Bowel Sounds, Abdomen, Obese Musculoskeletal: Yes: WNL Extremities: Yes: WNL Edema: No Integumentary: Yes: WNL Neurological: Yes: WNL Psychiatric: Yes: WNL Labs: CBC, BMP 05/28/19 07:29 05/28/19 07:29 rest reviewed Imaging - Results Chest X-ray: Report Reviewed, Image Reviewed Problem List - Problems (1) Acute CHF (congestive heart failure) Code(s): I50.9 - HEART FAILURE, UNSPECIFIED (2) Acute exacerbation of COPD with asthma Code(s): J44.1 - CHRONIC OBSTRUCTIVE PULMONARY DISEASE W (ACUTE) EXACERBATION; J45.901 - UNSPECIFIED ASTHMA WITH (ACUTE) EXACERBATION (3) COPD (chronic obstructive pulmonary disease) Code(s): J44.9 - CHRONIC OBSTRUCTIVE PULMONARY DISEASE, UNSPECIFIED Qualifiers: COPD type: unspecified COPD Qualified Code(s): J44.9 - Chronic obstructive pulmonary disease, unspecified (4) HTN (hypertension) Code(s): I10 - ESSENTIAL (PRIMARY) HYPERTENSION (5) Shingles Code(s): B02.9 - ZOSTER WITHOUT COMPLICATIONS (6) CHF (congestive heart failure) Code(s): I50.9 - HEART FAILURE, UNSPECIFIED Qualifiers: Heart failure type: other Qualified Code(s): I50.9 - Heart failure, unspecified (7) Accelerated hypertension Code(s): I10 - ESSENTIAL (PRIMARY) HYPERTENSION Assessment/Plan SUBJECTIVE IMPROVEMENT AFTER 48 HOURS AGREE WITH CURRENT ICS/LABA/LAMA TAPER SYSTEMIC STEROIDS O2 NEEDED LUDMILA PRN INCREASE AMBULATION/DVT PROPHYLAXIS Etienne DWYER MD
[2019-05-29] MEDS: valACYclovir HCL 500 MG TABLET (FP) PO SCH ×2 (13:53→22:04)
[2019-05-29] MEDS: predniSONE 20 MG TABLET (UD) PO SCH (13:53)
--- NOTE | 2019-05-29 16:16 | PN ---
Progress Note (short form) - Note Progress Note: s: no cp palps dizzy; still with harris Current Medications Generic Name Dose Route Start Last Admin Trade Name Freq PRN Reason Stop Dose Admin Acetaminophen 650 mg 05/27/19 21:21 Tylenol - PO Q6H PRN PAIN LEVEL 1-5 Albuterol/Ipratropium 1 amp 05/28/19 08:00 05/29/19 13:03 Duoneb - NEB 1 amp RQID ELIJAH Administration Budesonide/Formoterol Fumarate 1 puff 05/27/19 22:00 05/29/19 09:47 Symbicort 160/4.5mcg - IH 1 puff BID ELIJAH Administration Enalapril Maleate 10 mg 05/28/19 10:00 05/29/19 09:45 Vasotec - PO 10 mg DAILY ELIJAH Administration Furosemide 40 mg 05/28/19 06:00 05/29/19 06:39 Lasix Injection - IVPB 40 mg BID@0600,1400 ELIJAH Administration Gabapentin 100 mg 05/27/19 22:00 05/29/19 13:53 Neurontin - PO 05/31/19 23:59 100 mg TID ELIJAH Administration Guaifenesin/Codeine Phosphate 10 ml 05/27/19 21:26 Robitussin Ac - PO Q8H PRN COUGH Heparin Sodium (Porcine) 5,000 unit 05/27/19 22:00 05/29/19 13:55 Heparin - SQ Not Given TID ELIJAH Montelukast Sodium 10 mg 05/28/19 10:00 05/29/19 09:45 Singulair - PO 10 mg DAILY ELIJAH Administration Nifedipine 30 mg 05/28/19 10:00 05/29/19 09:46 Procardia Xl - PO 30 mg DAILY ELIJAH Administration Nystatin 1 applic 05/27/19 22:00 05/29/19 09:48 Mycostatin Cream - TP 1 applic BID ELIJAH Administration Prednisone 20 mg 05/29/19 13:00 05/29/19 13:53 Deltasone - PO 20 mg DAILY ELIJAH Administration Valacyclovir HCl 1,000 mg 05/29/19 14:00 05/29/19 13:53 Valtrex - PO 1,000 mg TID ELIJAH Administration Vital Signs Period Temp Pulse Resp BP Sys/Pizarro Pulse Ox Last 24 Hr 97.3 F-97.8 F 59-71 18-20 124-154/52-67 94-100 Constitutional: Yes: No Distress, Calm, Obese Cardiovascular: Yes: Regular Rate and Rhythm, S1, S2. No: JVD (tds neck habitus ), Gallop, Murmur Respiratory: Yes: Regular. No: CTA Bilaterally, Accessory Muscle Use, Rales, Rhonchi, Wheezes Extremities: No: Cold Edema: No Neurological: Yes: Alert, Oriented Psychiatric: No: Agitated no jaundice diaphoresis Labs: CBC, BMP 05/28/19 07:29 05/28/19 07:29 Assessment/Plan EKG: sinus, LBBB, similar to prior CXR: +congestive changes Echo 08/2018 tds, nl LV/RV function, tr TR tele: s Echo 04/2019 (office): 1. This was a technically difficult study with suboptimal views--patient declined Definity contrast administration. 2. The left ventricular cavity size is probably normal. 3. Overall left ventricular systolic function is probably low-normal with a visually estimated EF of 50 vs 50 - 55 %. Mi's calculation was not feasible. 4. LA pressure could not be assessed, secondary to suboptimal mitral annulus TDI doppler recordings and LA volume assessment. 5. The right ventricle is normal in size and function, not well seen. 6. The left atrium was not well visualized. 7. There is no evidence of significant aortic stenosis, gradients are not significantly changed vs prior study of 09/2017. 8. Unable to estimate RVSP due to inadequate TR jet spectral doppler profile. 9. There is a trivial pericardial effusion present, consistent with physiologic fluid. Echo 05/30: nl LV/RV. mild AI. no RVSP acute diastolic HF exacerbation, acute bronchitis/a.e. copd - CXR with congestive changes, +JVD and edema on exam initially per consult note. - BNP 500 (ranges 500-1200). wt 245 lbs today, from 256 discharge in 11/28. - on lasix 40 qd at home, giving 40 iv bid here, cr stable, cont same for now - suspect ongoing airways reactivity/copd--pulmonary folowing - echo unchanged, unrevealing - should have outpt sleep apnea eval if pt willing HTN - stable, cont home meds
[2019-05-29] MEDS ORDERED: methylPREDNISolone NA SUCC 40 MG/1 ML VIAL IVPUSH SCH (22:00)
[2019-05-30] MEDS: HEPARIN NA (PORCINE) 5,000 UNITS/ML 1ML VIAL SQ SCH ×3 (06:38→22:39)
[2019-05-30] MEDS: valACYclovir HCL 500 MG TABLET (FP) PO SCH ×3 (06:39→21:34)
[2019-05-30] MEDS: GABAPENTIN 100 MG CAPSULE (FP) PO SCH ×3 (06:39→21:34)
[2019-05-30] MEDS: FUROSEMIDE 40 MG/4 ML INJECTABLE VIAL IVPB SCH ×2 (06:39→16:30)
--- NOTE | 2019-05-30 07:34 | PN ---
Progress Note, Physician - Current Medication List Current Medications: Active Medications Acetaminophen (Tylenol -) 650 mg PO Q6H PRN PRN Reason: PAIN LEVEL 1-5 Albuterol/Ipratropium (Duoneb -) 1 amp NEB RQID [facility] Last Admin: 05/29/19 19:50 Dose: 1 amp Budesonide/Formoterol Fumarate (Symbicort 160/4.5mcg -) 1 puff IH BID [facility] Last Admin: 05/29/19 22:05 Dose: 1 puff Enalapril Maleate (Vasotec -) 10 mg PO DAILY [facility] Last Admin: 05/29/19 09:45 Dose: 10 mg Furosemide (Lasix Injection -) 40 mg IVPB BID@0600,1400 [facility] Last Admin: 05/30/19 06:39 Dose: 40 mg Gabapentin (Neurontin -) 100 mg PO TID [facility] Stop: 05/31/19 23:59 Last Admin: 05/30/19 06:39 Dose: 100 mg Guaifenesin/Codeine Phosphate (Robitussin Ac -) 10 ml PO Q8H PRN PRN Reason: COUGH Heparin Sodium (Porcine) (Heparin -) 5,000 unit SQ TID [facility] Last Admin: 05/30/19 06:38 Dose: Not Given Montelukast Sodium (Singulair -) 10 mg PO DAILY [facility] Last Admin: 05/29/19 09:45 Dose: 10 mg Nifedipine (Procardia Xl -) 30 mg PO DAILY [facility] Last Admin: 05/29/19 09:46 Dose: 30 mg Nystatin (Mycostatin Cream -) 1 applic TP BID [facility] Last Admin: 05/29/19 22:05 Dose: 1 applic Prednisone (Deltasone -) 20 mg PO DAILY [facility] Last Admin: 05/29/19 13:53 Dose: 20 mg Valacyclovir HCl (Valtrex -) 1,000 mg PO TID [facility] Last Admin: 05/30/19 06:39 Dose: 1,000 mg - Objective Vital Signs: Vital Signs Temperature 97.6 F 05/30/19 06:00 Pulse Rate 59 L 05/30/19 06:00 Respiratory Rate 20 05/30/19 06:00 Blood Pressure 144/57 L 05/30/19 06:00 O2 Sat by Pulse Oximetry (%) 99 05/30/19 06:00 Cardiovascular: Yes: Regular Rate and Rhythm Respiratory: Yes: Regular, CTA Bilaterally Gastrointestinal: Yes: Normal Bowel Sounds, Soft. No: Tenderness Labs: CBC, BMP 05/28/19 07:29 Problem List - Problems (1) Acute CHF (congestive heart failure) Assessment/Plan: -telemetry, cardiac monitoring --CXR: +congestive changes -BNP: 504.2 -trop: 0.04 --> #2 0.04 - seen by cardio, follow up repeat ECHO - continue with IV lasix BID -follow up cxr and lytes Code(s): I50.9 - HEART FAILURE, UNSPECIFIED (2) Acute exacerbation of COPD with asthma Assessment/Plan: - Continue with nebulizer q6 hours - Continue with robitussin 10 ml q8h PRN - solu-mederol 40 mg BID--20 bid - continue Symbicort, Singulair - o2 via NC, monitor Spo2 - pulmonary consult Code(s): J44.1 - CHRONIC OBSTRUCTIVE PULMONARY DISEASE W (ACUTE) EXACERBATION; J45.901 - UNSPECIFIED ASTHMA WITH (ACUTE) EXACERBATION (3) HTN (hypertension) Assessment/Plan: -continue Enalapril, nifedipine Code(s): I10 - ESSENTIAL (PRIMARY) HYPERTENSION (4) Shingles Assessment/Plan: - contact precaution - continue with Acyclovir - ID consult - gabapentin 100mg TID for 1 week Code(s): B02.9 - ZOSTER WITHOUT COMPLICATIONS
--- NOTE | 2019-05-30 07:34 | PN ---
Progress Note, Physician History of Present Illness: pulmonary alert,stilll very dyspneic with minimal exertion,-cp - Current Medication List Current Medications: Active Medications Acetaminophen (Tylenol -) 650 mg PO Q6H PRN PRN Reason: PAIN LEVEL 1-5 Albuterol/Ipratropium (Duoneb -) 1 amp NEB RQID [facility] Last Admin: 05/29/19 19:50 Dose: 1 amp Budesonide/Formoterol Fumarate (Symbicort 160/4.5mcg -) 1 puff IH BID [facility] Last Admin: 05/29/19 22:05 Dose: 1 puff Enalapril Maleate (Vasotec -) 10 mg PO DAILY [facility] Last Admin: 05/29/19 09:45 Dose: 10 mg Furosemide (Lasix Injection -) 40 mg IVPB BID@0600,1400 [facility] Last Admin: 05/30/19 06:39 Dose: 40 mg Gabapentin (Neurontin -) 100 mg PO TID [facility] Stop: 05/31/19 23:59 Last Admin: 05/30/19 06:39 Dose: 100 mg Guaifenesin/Codeine Phosphate (Robitussin Ac -) 10 ml PO Q8H PRN PRN Reason: COUGH Heparin Sodium (Porcine) (Heparin -) 5,000 unit SQ TID [facility] Last Admin: 05/30/19 06:38 Dose: Not Given Montelukast Sodium (Singulair -) 10 mg PO DAILY [facility] Last Admin: 05/29/19 09:45 Dose: 10 mg Nifedipine (Procardia Xl -) 30 mg PO DAILY [facility] Last Admin: 05/29/19 09:46 Dose: 30 mg Nystatin (Mycostatin Cream -) 1 applic TP BID [facility] Last Admin: 05/29/19 22:05 Dose: 1 applic Prednisone (Deltasone -) 20 mg PO DAILY [facility] Last Admin: 05/29/19 13:53 Dose: 20 mg Valacyclovir HCl (Valtrex -) 1,000 mg PO TID [facility] Last Admin: 05/30/19 06:39 Dose: 1,000 mg - Objective Vital Signs: Vital Signs Temperature 97.6 F 05/30/19 06:00 Pulse Rate 59 L 05/30/19 06:00 Respiratory Rate 20 05/30/19 06:00 Blood Pressure 144/57 L 05/30/19 06:00 O2 Sat by Pulse Oximetry (%) 99 05/30/19 06:00 Constitutional: Yes: Calm, Obese Eyes: Yes: WNL HENT: Yes: WNL Neck: Yes: WNL Cardiovascular: Yes: Regular Rate and Rhythm, S1, S2 Respiratory: Yes: Diminished Gastrointestinal: Yes: Normal Bowel Sounds, Soft Extremities: Yes: WNL Edema: Yes Labs: CBC, BMP 05/28/19 07:29 Assessment/Plan Problem List - Problems (1) Acute CHF (congestive heart failure) Code(s): I50.9 - HEART FAILURE, UNSPECIFIED (2) Acute exacerbation of COPD with asthma Code(s): J44.1 - CHRONIC OBSTRUCTIVE PULMONARY DISEASE W (ACUTE) EXACERBATION; J45.901 - UNSPECIFIED ASTHMA WITH (ACUTE) EXACERBATION (3) COPD (chronic obstructive pulmonary disease) Code(s): J44.9 - CHRONIC OBSTRUCTIVE PULMONARY DISEASE, UNSPECIFIED Qualifiers: COPD type: unspecified COPD Qualified Code(s): J44.9 - Chronic obstructive pulmonary disease, unspecified (4) HTN (hypertension) Code(s): I10 - ESSENTIAL (PRIMARY) HYPERTENSION (5) Shingles Code(s): B02.9 - ZOSTER WITHOUT COMPLICATIONS (6) CHF (congestive heart failure) Code(s): I50.9 - HEART FAILURE, UNSPECIFIED Qualifiers: Heart failure type: other Qualified Code(s): I50.9 - Heart failure, unspecified (7) Accelerated hypertension Code(s): I10 - ESSENTIAL (PRIMARY) HYPERTENSION Assessment/Plan INHALED BRONCHODILATORS STEROIDS O2 NEEDED AMBULATION DVT PROPHYLAXIS DR CROWDER
[2019-05-30 08:13] LABS: ALBUMIN 3.3 g/dl (3.4-5.0); BILIRUBIN,TOTAL 0.6 mg/dl (0.2-1); CALCIUM 8.8 mg/dl (8.5-10); MAGNESIUM 2.3 mg/dL (1.8-2.4); POTASSIUM 3.5 mmol/L (3.5-5.1); TOT PROT 5.4 g/dl (6.4-8.2)
--- NOTE | 2019-05-30 08:17 | PN ---
Progress Note (short form) - Note Progress Note: ID consult dictated asked to see for rash on flank reports one to two weeks of flank pain followed by the rash admitted 05/27 started on acyclovir- now on valtrex continues to have sob and cough zoster of the flank- day #2 valtrex, finish 7 days chf/copd management per PMD Problem List - Problems (1) Shingles Code(s): B02.9 - ZOSTER WITHOUT COMPLICATIONS (2) Acute CHF (congestive heart failure) Code(s): I50.9 - HEART FAILURE, UNSPECIFIED (3) Acute exacerbation of COPD with asthma Code(s): J44.1 - CHRONIC OBSTRUCTIVE PULMONARY DISEASE W (ACUTE) EXACERBATION; J45.901 - UNSPECIFIED ASTHMA WITH (ACUTE) EXACERBATION
[2019-05-30] MEDS: MONTELUKAST NA 10 MG TABLET PO SCH (09:00)
[2019-05-30] MEDS: BUDESONIDE/FORMETEROL FUMARATE 160/4.5 mcg INHALER IH SCH ×2 (09:00→21:34)
[2019-05-30] MEDS: NIFEdipine E.R. 30 MG TABLET (FP) PO SCH (09:00)
[2019-05-30] MEDS: ENALAPRIL MALEATE 10 MG TABLET (FP) PO SCH (09:00)
[2019-05-30] MEDS: predniSONE 20 MG TABLET (UD) PO SCH (09:00)
[2019-05-30] MEDS: NYSTATIN 100,000 UNIT/GM TOPICAL CREAM 15 GM TUBE TP SCH ×2 (09:00→21:51)
[2019-05-30] MEDS: ALBUTEROL SO4 2.5/IPRATROPIUM 0.5 INH SOL 3 ML VIAL.NEB. NEB SCH ×4 (10:12→21:34)
[2019-05-30 12:00] VITALS: BMI 45.3
--- NOTE | 2019-05-30 14:58 | PN ---
Progress Note (short form) - Note Progress Note: s: no cp, palps, dizziness. still with dyspnea on exertion Current Medications Acetaminophen (Tylenol -) 650 mg PO Q6H PRN PRN Reason: PAIN LEVEL 1-5 Albuterol/Ipratropium (Duoneb -) 1 amp NEB RQID [facility] Last Admin: 05/30/19 13:24 Dose: 1 amp Budesonide/Formoterol Fumarate (Symbicort 160/4.5mcg -) 1 puff IH BID [facility] Last Admin: 05/30/19 09:00 Dose: 1 puff Enalapril Maleate (Vasotec -) 10 mg PO DAILY [facility] Last Admin: 05/30/19 09:00 Dose: 10 mg Furosemide (Lasix Injection -) 40 mg IVPB BID@0600,1400 [facility] Last Admin: 05/30/19 06:39 Dose: 40 mg Gabapentin (Neurontin -) 100 mg PO TID [facility] Stop: 05/31/19 23:59 Last Admin: 05/30/19 06:39 Dose: 100 mg Guaifenesin/Codeine Phosphate (Robitussin Ac -) 10 ml PO Q8H PRN PRN Reason: COUGH Heparin Sodium (Porcine) (Heparin -) 5,000 unit SQ TID [facility] Last Admin: 05/30/19 13:24 Dose: Not Given Montelukast Sodium (Singulair -) 10 mg PO DAILY [facility] Last Admin: 05/30/19 09:00 Dose: 10 mg Nifedipine (Procardia Xl -) 30 mg PO DAILY [facility] Last Admin: 05/30/19 09:00 Dose: 30 mg Nystatin (Mycostatin Cream -) 1 applic TP BID [facility] Last Admin: 05/30/19 09:00 Dose: 1 applic Prednisone (Deltasone -) 20 mg PO DAILY [facility] Last Admin: 05/30/19 09:00 Dose: 20 mg Valacyclovir HCl (Valtrex -) 1,000 mg PO TID [facility] Last Admin: 05/30/19 13:24 Dose: 1,000 mg Vital Signs Period Temp Pulse Resp BP Sys/Pizarro Pulse Ox Last 24 Hr 97.5 F-98.6 F 59-65 17-20 124-144/47-59 98-100 Constitutional: Yes: No Distress, Calm, Obese Cardiovascular: Yes: Regular Rate and Rhythm, S1, S2. No: JVD (tds neck habitus ), Gallop, Murmur Respiratory: Yes: Regular. No: CTA Bilaterally, Accessory Muscle Use, Rales, Rhonchi, Wheezes Extremities: No: Cold Edema: No Neurological: Yes: Alert, Oriented Psychiatric: No: Agitated no jaundice diaphoresis Assessment/Plan EKG: sinus, LBBB, similar to prior CXR: +congestive changes Echo 08/2018 tds, nl LV/RV function, tr TR tele: sinus, PVCs Echo 04/2019 (office): 1. This was a technically difficult study with suboptimal views--patient declined Definity contrast administration. 2. The left ventricular cavity size is probably normal. 3. Overall left ventricular systolic function is probably low-normal with a visually estimated EF of 50 vs 50 - 55 %. Mi's calculation was not feasible. 4. LA pressure could not be assessed, secondary to suboptimal mitral annulus TDI doppler recordings and LA volume assessment. 5. The right ventricle is normal in size and function, not well seen. 6. The left atrium was not well visualized. 7. There is no evidence of significant aortic stenosis, gradients are not significantly changed vs prior study of 09/2017. 8. Unable to estimate RVSP due to inadequate TR jet spectral doppler profile. 9. There is a trivial pericardial effusion present, consistent with physiologic fluid. Echo 05/30: nl LV/RV. mild AI. no RVSP acute diastolic HF exacerbation, acute bronchitis/a.e. copd - CXR with congestive changes, +JVD and edema on exam initially per consult note. - BNP 500 (ranges 500-1200). wt 245 lbs today, from 256 discharge in 11/28. - on lasix 40 qd at home, giving 40 iv bid here, wt up 246->248 today - CXR today showed congestive changes, improving from admission, remains dyspneic - inc IV lasix to 80 mg BID - suspect ongoing airways reactivity/copd--pulmonary folowing - echo unchanged, unrevealing - should have outpt sleep apnea eval if pt willing HTN - stable, cont home meds
--- NOTE | 2019-05-30 17:42 | CONS ---
DATE OF CONSULTATION: DATE OF DICTATION: 05/30/2019 INFECTIOUS DISEASE CONSULTATION HISTORY OF PRESENT ILLNESS: This is an 78-year-old woman who I saw at [facility]. She was admitted on the with complaint of shortness of breath and dyspnea. She was treated with prednisone prior to admission by Dr. Addison but continued to be symptomatic. She was seen by Dr. Antonio and referred to the ER for admission. She has no fevers or chills. She notes worsening shortness of breath and worsening dyspnea. PAST MEDICAL HISTORY: Notable for atrial fibrillation, CHF, hypertension, COPD, chronic stable pulmonary nodules, chronic low back pain, thyroid mass. SURGICAL HISTORY: Notable for cholecystectomy. HOSPITAL COURSE: The patient was noted in the ER to have a rash on her left flank. She describes having had some pain at that site over the last 2 weeks that would radiate up into her upper back. She has had no fevers or chills, otherwise reports that she is starting to feel better. SOCIAL HISTORY: She lives alone. She is retired. There is no history of cigarette, alcohol, or substance use. ALLERGIES: No known drug allergies. MEDICATION: Her medications as an outpatient include furosemide, Singulair, enalapril, nifedipine. She was started on prednisone 3 days prior to admission, Symbicort, and guaifenesin. FAMILY HISTORY: Notable for coronary artery disease in her father, and her mother had a CVA. REVIEW OF SYSTEMS: Notable. She describes this pain in her flank where ultimately she developed the rash. PHYSICAL EXAMINATION: General: She is an obese woman in no acute distress. She is afebrile. Vital Signs: Temperature is 98.6, pulse is 60, blood pressure 140/59, respiratory rate of 20, she weighs 112 kg. HEENT: Normocephalic. Eyes are anicteric. Neck: Supple. Lungs: She has scattered rhonchi. Abdomen: Soft, nontender. Extremities: Without edema. On her left flank, she has an area of a grouped set of round lesions consistent with herpes zoster. LABORATORY: Labs are notable for a white count of 11.8 on admission, repeat of 9.3. Hemoglobin 15.3, platelets are 219, BUN and creatinine are 41 and 1 today, and her urinalysis is negative. Chest x-ray done today shows no acute chest pathology, done on admission shows some congestive changes with cardiomegaly. IMPRESSION: In summary, this is an 78-year-old woman who I am asked to see for rash on her flank consistent with zoster, though she has no rash elsewhere, day number of Valtrex, would finish 7 days. Congestive heart failure, chronic obstructive pulmonary disease management per the primary service. GUADALUPE GORMAN M.D. GREGG/[id number]
[2019-05-30] MEDS ORDERED: PT OWN MED DRAWER 7, Y5N ONE (21:15)
[2019-05-31] MEDS: FUROSEMIDE 40 MG/4 ML INJECTABLE VIAL IVPB SCH ×2 (05:15→13:59)
[2019-05-31] MEDS: GABAPENTIN 100 MG CAPSULE (FP) PO SCH ×3 (05:16→21:56)
[2019-05-31] MEDS: HEPARIN NA (PORCINE) 5,000 UNITS/ML 1ML VIAL SQ SCH ×3 (06:39→21:55)
[2019-05-31] MEDS: ALBUTEROL SO4 2.5/IPRATROPIUM 0.5 INH SOL 3 ML VIAL.NEB. NEB SCH ×4 (08:00→20:38)
[2019-05-31] MEDS: ENALAPRIL MALEATE 10 MG TABLET (FP) PO SCH (09:44)
[2019-05-31] MEDS: valACYclovir HCL 500 MG TABLET (FP) PO SCH ×2 (09:44→21:56)
[2019-05-31] MEDS: predniSONE 20 MG TABLET (UD) PO SCH (09:44)
[2019-05-31] MEDS: MONTELUKAST NA 10 MG TABLET PO SCH (09:44)
[2019-05-31] MEDS: NIFEdipine E.R. 30 MG TABLET (FP) PO SCH (09:45)
[2019-05-31] MEDS: BUDESONIDE/FORMETEROL FUMARATE 160/4.5 mcg INHALER IH SCH ×2 (09:45→21:56)
[2019-05-31] MEDS: NYSTATIN 100,000 UNIT/GM TOPICAL CREAM 15 GM TUBE TP SCH ×2 (09:45→21:57)
--- NOTE | 2019-05-31 10:33 | PN ---
Progress Note, Physician Chief Complaint: AWAKE ALERT STILL SOB EVENTS AND NOTES REVIEWED - Current Medication List Current Medications: Active Medications Acetaminophen (Tylenol -) 650 mg PO Q6H PRN PRN Reason: PAIN LEVEL 1-5 Albuterol/Ipratropium (Duoneb -) 1 amp NEB RQID [facility] Last Admin: 05/31/19 08:00 Dose: 1 amp Budesonide/Formoterol Fumarate (Symbicort 160/4.5mcg -) 1 puff IH BID [facility] Last Admin: 05/31/19 09:45 Dose: 1 puff Enalapril Maleate (Vasotec -) 10 mg PO DAILY [facility] Last Admin: 05/31/19 09:44 Dose: 10 mg Furosemide (Lasix Injection -) 80 mg IVPB BID@0600,1400 [facility] Last Admin: 05/31/19 05:15 Dose: 80 mg Gabapentin (Neurontin -) 100 mg PO TID [facility] Stop: 05/31/19 23:59 Last Admin: 05/31/19 05:16 Dose: 100 mg Heparin Sodium (Porcine) (Heparin -) 5,000 unit SQ TID [facility] Last Admin: 05/31/19 06:39 Dose: Not Given Montelukast Sodium (Singulair -) 10 mg PO DAILY [facility] Last Admin: 05/31/19 09:44 Dose: 10 mg Nifedipine (Procardia Xl -) 30 mg PO DAILY [facility] Last Admin: 05/31/19 09:45 Dose: 30 mg Nystatin (Mycostatin Cream -) 1 applic TP BID [facility] Last Admin: 05/31/19 09:45 Dose: 1 applic Prednisone (Deltasone -) 20 mg PO DAILY [facility] Last Admin: 05/31/19 09:44 Dose: 20 mg Valacyclovir HCl (Valtrex -) 1,000 mg PO BID [facility] Last Admin: 05/31/19 09:44 Dose: 1,000 mg - Objective Vital Signs: Vital Signs Temperature 97.6 F 05/31/19 06:00 Pulse Rate 57 L 05/31/19 06:00 Respiratory Rate 18 05/31/19 09:00 Blood Pressure 104/77 05/31/19 06:00 O2 Sat by Pulse Oximetry (%) 96 05/31/19 09:00 Constitutional: Yes: Mild Distress Cardiovascular: Yes: Pulse Irregular Respiratory: Yes: Poor Air Entry, Rhonchi, SOB Gastrointestinal: Yes: Soft, Abdomen, Obese Genitourinary: Yes: WNL Musculoskeletal: Yes: Muscle Weakness Edema: No Labs: CBC, BMP 05/28/19 07:29 05/30/19 07:25 Problem List - Problems (1) Acute CHF (congestive heart failure) Code(s): I50.9 - HEART FAILURE, UNSPECIFIED (2) Acute exacerbation of COPD with asthma Code(s): J44.1 - CHRONIC OBSTRUCTIVE PULMONARY DISEASE W (ACUTE) EXACERBATION; J45.901 - UNSPECIFIED ASTHMA WITH (ACUTE) EXACERBATION (3) Shingles Code(s): B02.9 - ZOSTER WITHOUT COMPLICATIONS Assessment/Plan CONTINUE STEROIDS IV LASIX IV CONTINUE PULM/CARDIO F/U APPRECIATED PT EVAL OOB TO CHAIR DVT PROPHYLAXIS
--- NOTE | 2019-05-31 13:14 | PN ---
Progress Note (short form) - Note Progress Note: PULMONARY SUBJECTIVE IMPROVEMENT VSS/AFEB ANICTERIC SCATTERED MINIMAL RHONCHI S1S2 BS+ OBESE 1+ EDEMA ANKLES LABS/MEDS/NOTES/IMAGES REVIEWED Problem List - Problems (1) Acute CHF (congestive heart failure) Code(s): I50.9 - HEART FAILURE, UNSPECIFIED (2) Acute exacerbation of COPD with asthma Code(s): J44.1 - CHRONIC OBSTRUCTIVE PULMONARY DISEASE W (ACUTE) EXACERBATION; J45.901 - UNSPECIFIED ASTHMA WITH (ACUTE) EXACERBATION (3) COPD (chronic obstructive pulmonary disease) Code(s): J44.9 - CHRONIC OBSTRUCTIVE PULMONARY DISEASE, UNSPECIFIED Qualifiers: COPD type: unspecified COPD Qualified Code(s): J44.9 - Chronic obstructive pulmonary disease, unspecified (4) HTN (hypertension) Code(s): I10 - ESSENTIAL (PRIMARY) HYPERTENSION (5) Shingles Code(s): B02.9 - ZOSTER WITHOUT COMPLICATIONS (6) CHF (congestive heart failure) Code(s): I50.9 - HEART FAILURE, UNSPECIFIED Qualifiers: Heart failure type: other Qualified Code(s): I50.9 - Heart failure, unspecified (7) Accelerated hypertension Code(s): I10 - ESSENTIAL (PRIMARY) HYPERTENSION
--- NOTE | 2019-05-31 13:15 | PN ---
Progress Note (short form) - Note Progress Note: PULMONARY SUBJECTIVE IMPROVEMENT VSS/AFEB ANICTERIC SCATTERED MINIMAL RHONCHI S1S2 BS+ OBESE 1+ EDEMA ANKLES LABS/MEDS/NOTES/IMAGES REVIEWED (1) Acute CHF (congestive heart failure) Code(s): I50.9 - HEART FAILURE, UNSPECIFIED (2) Acute exacerbation of COPD with asthma Code(s): J44.1 - CHRONIC OBSTRUCTIVE PULMONARY DISEASE W (ACUTE) EXACERBATION; J45.901 - UNSPECIFIED ASTHMA WITH (ACUTE) EXACERBATION (3) COPD (chronic obstructive pulmonary disease) Code(s): J44.9 - CHRONIC OBSTRUCTIVE PULMONARY DISEASE, UNSPECIFIED Qualifiers: COPD type: unspecified COPD Qualified Code(s): J44.9 - Chronic obstructive pulmonary disease, unspecified (4) HTN (hypertension) Code(s): I10 - ESSENTIAL (PRIMARY) HYPERTENSION (5) Shingles Code(s): B02.9 - ZOSTER WITHOUT COMPLICATIONS (6) CHF (congestive heart failure) Code(s): I50.9 - HEART FAILURE, UNSPECIFIED Qualifiers: Heart failure type: other Qualified Code(s): I50.9 - Heart failure, unspecified (7) Accelerated hypertension Code(s): I10 - ESSENTIAL (PRIMARY) HYPERTENSION Assessment/Plan INHALED BRONCHODILATORS STEROIDS O2 NEEDED AMBULATION DVT PROPHYLAXIS SHOULD BE READY FOR DISCHARGE SARAH DWYER MD Problem List - Problems (1) Acute CHF (congestive heart failure) Code(s): I50.9 - HEART FAILURE, UNSPECIFIED (2) Acute exacerbation of COPD with asthma Code(s): J44.1 - CHRONIC OBSTRUCTIVE PULMONARY DISEASE W (ACUTE) EXACERBATION; J45.901 - UNSPECIFIED ASTHMA WITH (ACUTE) EXACERBATION (3) COPD (chronic obstructive pulmonary disease) Code(s): J44.9 - CHRONIC OBSTRUCTIVE PULMONARY DISEASE, UNSPECIFIED Qualifiers: COPD type: unspecified COPD Qualified Code(s): J44.9 - Chronic obstructive pulmonary disease, unspecified (4) HTN (hypertension) Code(s): I10 - ESSENTIAL (PRIMARY) HYPERTENSION (5) Shingles Code(s): B02.9 - ZOSTER WITHOUT COMPLICATIONS (6) CHF (congestive heart failure) Code(s): I50.9 - HEART FAILURE, UNSPECIFIED Qualifiers: Heart failure type: other Qualified Code(s): I50.9 - Heart failure, unspecified (7) Accelerated hypertension Code(s): I10 - ESSENTIAL (PRIMARY) HYPERTENSION
--- NOTE | 2019-05-31 16:32 | PN ---
Progress Note (short form) - Note Progress Note: s: no cp palps dizzy; still with harris Current Medications Generic Name Dose Route Start Last Admin Trade Name Freq PRN Reason Stop Dose Admin Acetaminophen 650 mg 05/27/19 21:21 Tylenol - PO Q6H PRN PAIN LEVEL 1-5 Albuterol/Ipratropium 1 amp 05/28/19 08:00 05/31/19 12:00 Duoneb - NEB 1 amp RQID ELIJAH Administration Budesonide/Formoterol Fumarate 1 puff 05/27/19 22:00 05/31/19 09:45 Symbicort 160/4.5mcg - IH 1 puff BID ELIJAH Administration Enalapril Maleate 10 mg 05/28/19 10:00 05/31/19 09:44 Vasotec - PO 10 mg DAILY ELIJAH Administration Furosemide 80 mg 05/30/19 15:15 05/31/19 13:59 Lasix Injection - IVPB 80 mg BID@0600,1400 ELIJAH Administration Gabapentin 100 mg 05/27/19 22:00 05/31/19 14:00 Neurontin - PO 05/31/19 23:59 100 mg TID ELIJAH Administration Heparin Sodium (Porcine) 5,000 unit 05/27/19 22:00 05/31/19 14:00 Heparin - SQ Not Given TID ELIJAH Montelukast Sodium 10 mg 05/28/19 10:00 05/31/19 09:44 Singulair - PO 10 mg DAILY [facility] Administration Nifedipine 30 mg 05/28/19 10:00 05/31/19 09:45 Procardia Xl - PO 30 mg DAILY [facility] Administration Nystatin 1 applic 05/27/19 22:00 05/31/19 09:45 Mycostatin Cream - TP 1 applic BID ELIJAH Administration Prednisone 20 mg 05/29/19 13:00 05/31/19 09:44 Deltasone - PO 20 mg DAILY [facility] Administration Valacyclovir HCl 1,000 mg 05/30/19 22:00 05/31/19 09:44 Valtrex - PO 1,000 mg BID ELIJAH Administration Vital Signs Period Temp Pulse Resp BP Sys/Pizarro Pulse Ox Last 24 Hr 97.6 F-98.6 F 57-60 18-20 104-143/56-77 94-96 Constitutional: Yes: No Distress, Calm, Obese Cardiovascular: Yes: Regular Rate and Rhythm, S1, S2. No: JVD (tds neck habitus ), Gallop, Murmur Respiratory: Yes: Regular. scattered wheeze, nl eff Extremities: No: Cold Edema: trace le edema bl Neurological: Yes: Alert, Oriented Psychiatric: No: Agitated no jaundice diaphoresis Labs: CBC, BMP 05/28/19 07:29 05/30/19 07:25 Assessment/Plan EKG: sinus, LBBB, similar to prior CXR: +congestive changes Echo 08/2018 tds, nl LV/RV function, tr TR tele: sr Echo 04/2019 (office): 1. This was a technically difficult study with suboptimal views--patient declined Definity contrast administration. 2. The left ventricular cavity size is probably normal. 3. Overall left ventricular systolic function is probably low-normal with a visually estimated EF of 50 vs 50 - 55 %. Mi's calculation was not feasible. 4. LA pressure could not be assessed, secondary to suboptimal mitral annulus TDI doppler recordings and LA volume assessment. 5. The right ventricle is normal in size and function, not well seen. 6. The left atrium was not well visualized. 7. There is no evidence of significant aortic stenosis, gradients are not significantly changed vs prior study of 09/2017. 8. Unable to estimate RVSP due to inadequate TR jet spectral doppler profile. 9. There is a trivial pericardial effusion present, consistent with physiologic fluid. Echo 05/30: nl LV/RV. mild AI. no RVSP acute diastolic HF exacerbation, acute bronchitis/a.e. copd - on lasix 40 qd at home, was giving 40 iv bid here without sig improvement in harris so was increased to 80 iv yesterday. Pt still with harris but overall feels better than when came to er initially. Suspect some ongoing airways reactivity/ copd--pulmonary following as well. If pt has improved sob tomorrow then likely can change to po lasix 40 bid and plan for dc. - echo unchanged, unrevealing - should have outpt sleep apnea eval if pt willing HTN - stable, cont home meds
[2019-06-01] MEDS: HEPARIN NA (PORCINE) 5,000 UNITS/ML 1ML VIAL SQ SCH ×3 (06:26→21:31)
[2019-06-01] MEDS: FUROSEMIDE 40 MG/4 ML INJECTABLE VIAL IVPB SCH ×2 (06:27→14:08)
[2019-06-01 08:54] LABS: CREATININE 0.9 mg/dl (0.55-1.3); MAGNESIUM 2.3 mg/dL (1.8-2.4); POTASSIUM 3.3 mmol/L (3.5-5.1)
[2019-06-01] MEDS: ALBUTEROL SO4 2.5/IPRATROPIUM 0.5 INH SOL 3 ML VIAL.NEB. NEB SCH ×3 (09:00→20:27)
[2019-06-01] MEDS: MONTELUKAST NA 10 MG TABLET PO SCH (10:54)
[2019-06-01] MEDS: predniSONE 20 MG TABLET (UD) PO SCH (10:54)
[2019-06-01] MEDS: valACYclovir HCL 500 MG TABLET (FP) PO SCH ×2 (10:55→21:20)
[2019-06-01] MEDS: NIFEdipine E.R. 30 MG TABLET (FP) PO SCH (10:55)
[2019-06-01] MEDS: ENALAPRIL MALEATE 10 MG TABLET (FP) PO SCH (10:55)
[2019-06-01] MEDS: BUDESONIDE/FORMETEROL FUMARATE 160/4.5 mcg INHALER IH SCH ×2 (10:57→21:20)
[2019-06-01] MEDS: NYSTATIN 100,000 UNIT/GM TOPICAL CREAM 15 GM TUBE TP SCH ×2 (11:02→21:20)
[2019-06-01] MEDS ORDERED: POTASSIUM CHLORIDE ORAL LIQUID 20 MEQ/15 ML PO ONE (12:09)
--- NOTE | 2019-06-01 12:10 | PN ---
Progress Note, Physician Chief Complaint: sob History of Present Illness: breathing is improved but still sob walking across her hospital room--NOT HER BASELINE incr urination since on 78 iv lasix leg swelling improved no cp, palp - Current Medication List Current Medications: Active Medications Acetaminophen (Tylenol -) 650 mg PO Q6H PRN PRN Reason: PAIN LEVEL 1-5 Albuterol/Ipratropium (Duoneb -) 1 amp NEB RQID [facility] Last Admin: 06/01/19 09:00 Dose: 1 amp Budesonide/Formoterol Fumarate (Symbicort 160/4.5mcg -) 1 puff IH BID [facility] Last Admin: 06/01/19 10:57 Dose: 1 puff Enalapril Maleate (Vasotec -) 10 mg PO DAILY [facility] Last Admin: 06/01/19 10:55 Dose: 10 mg Furosemide (Lasix Injection -) 80 mg IVPB BID@0600,1400 [facility] Last Admin: 06/01/19 06:27 Dose: 80 mg Heparin Sodium (Porcine) (Heparin -) 5,000 unit SQ TID [facility] Last Admin: 06/01/19 06:26 Dose: Not Given Montelukast Sodium (Singulair -) 10 mg PO DAILY [facility] Last Admin: 06/01/19 10:54 Dose: 10 mg Nifedipine (Procardia Xl -) 30 mg PO DAILY [facility] Last Admin: 06/01/19 10:55 Dose: 30 mg Nystatin (Mycostatin Cream -) 1 applic TP BID [facility] Last Admin: 06/01/19 11:02 Dose: 1 applic Prednisone (Deltasone -) 20 mg PO DAILY [facility] Last Admin: 06/01/19 10:54 Dose: 20 mg Valacyclovir HCl (Valtrex -) 1,000 mg PO BID [facility] Last Admin: 06/01/19 10:55 Dose: 1,000 mg - Objective Vital Signs: Vital Signs Temperature 98.5 F 05/31/19 22:00 Pulse Rate 61 06/01/19 06:00 Respiratory Rate 19 06/01/19 06:00 Blood Pressure 140/64 06/01/19 06:00 O2 Sat by Pulse Oximetry (%) 96 06/01/19 09:00 Constitutional: Yes: No Distress, Calm, Obese Cardiovascular: Yes: Regular Rate and Rhythm, S1, S2. No: Gallop, Murmur Respiratory: Yes: Regular, CTA Bilaterally. No: Accessory Muscle Use, Rales, Rhonchi, Wheezes Extremities: No: Cold Edema: No Neurological: Yes: Alert, Oriented Psychiatric: No: Agitated Labs: CBC, BMP 05/28/19 07:29 06/01/19 07:26 Assessment/Plan CXR: +congestive changes Echo 08/2018 tds, nl LV/RV function, tr TR tele: sr Echo 04/2019 (office): 1. This was a technically difficult study with suboptimal views--patient declined Definity contrast administration. 2. The left ventricular cavity size is probably normal. 3. Overall left ventricular systolic function is probably low-normal with a visually estimated EF of 50 vs 50 - 55 %. Mi's calculation was not feasible. 4. LA pressure could not be assessed, secondary to suboptimal mitral annulus TDI doppler recordings and LA volume assessment. 5. The right ventricle is normal in size and function, not well seen. 6. The left atrium was not well visualized. 7. There is no evidence of significant aortic stenosis, gradients are not significantly changed vs prior study of 09/2017. 8. Unable to estimate RVSP due to inadequate TR jet spectral doppler profile. 9. There is a trivial pericardial effusion present, consistent with physiologic fluid. Echo 05/30: nl LV/RV. mild AI. no RVSP acute diastolic HF exacerbation, acute bronchitis/a.e. copd - on lasix 40 qd at home, was giving 40 iv bid here without sig improvement in harris, no wt decline--increased to 80 iv bid (05/30). - wt declining gradually since increase in lasix dose, renal fxn stable. remains NYHA III-IV sob sx status, worse than baseline. suspect multifactorial sec to ongoing copd as well as some component of volume excess. will continue lasix 80 iv bid today and tomorrow, as long as bun/creat stable. plan if she remains without interval wt gain or edema to transition to torsemide 80-100 qd prior to discharge, likely on sunday 06/03 - echo unchanged, unrevealing - should have outpt sleep apnea eval if pt willing HTN - stable, cont home meds
[2019-06-01] MEDS ORDERED: PT OWN MED DRAWER 7, Y5N ONE ×2 (13:29→21:16)
--- NOTE | 2019-06-01 20:43 | PN ---
Progress Note, Physician Chief Complaint: SOB CHF History of Present Illness: NAD SOB improved Seen by Cardiology On IV lasix 80 mg BID - Current Medication List Current Medications: Active Medications Acetaminophen (Tylenol -) 650 mg PO Q6H PRN PRN Reason: PAIN LEVEL 1-5 Albuterol/Ipratropium (Duoneb -) 1 amp NEB RQID [facility] Last Admin: 06/01/19 20:27 Dose: 1 amp Budesonide/Formoterol Fumarate (Symbicort 160/4.5mcg -) 1 puff IH BID [facility] Last Admin: 06/01/19 10:57 Dose: 1 puff Enalapril Maleate (Vasotec -) 10 mg PO DAILY [facility] Last Admin: 06/01/19 10:55 Dose: 10 mg Furosemide (Lasix Injection -) 80 mg IVPB BID@0600,1400 [facility] Last Admin: 06/01/19 14:08 Dose: 80 mg Heparin Sodium (Porcine) (Heparin -) 5,000 unit SQ TID [facility] Last Admin: 06/01/19 14:08 Dose: Not Given Montelukast Sodium (Singulair -) 10 mg PO DAILY [facility] Last Admin: 06/01/19 10:54 Dose: 10 mg Nifedipine (Procardia Xl -) 30 mg PO DAILY [facility] Last Admin: 06/01/19 10:55 Dose: 30 mg Nystatin (Mycostatin Cream -) 1 applic TP BID [facility] Last Admin: 06/01/19 11:02 Dose: 1 applic Prednisone (Deltasone -) 20 mg PO DAILY [facility] Last Admin: 06/01/19 10:54 Dose: 20 mg Valacyclovir HCl (Valtrex -) 1,000 mg PO BID [facility] Last Admin: 06/01/19 10:55 Dose: 1,000 mg - Objective Vital Signs: Vital Signs Temperature 97.3 F L 06/01/19 14:00 Pulse Rate 74 06/01/19 14:00 Respiratory Rate 19 06/01/19 14:00 Blood Pressure 124/44 L 06/01/19 14:00 O2 Sat by Pulse Oximetry (%) 95 06/01/19 14:00 Constitutional: Yes: Well Nourished, No Distress, Calm, Obese Cardiovascular: Yes: Regular Rate and Rhythm Respiratory: Yes: Regular, SOB on Exertion Gastrointestinal: Yes: Normal Bowel Sounds, Soft, Abdomen, Obese Genitourinary: Yes: WNL Musculoskeletal: Yes: WNL Extremities: Yes: WNL Edema: Yes Edema: LLE: 1+, RLE: 1+ Peripheral Pulses WNL: Yes Neurological: Yes: Alert, Oriented Psychiatric: Yes: Alert, Oriented Labs: CBC, BMP 05/28/19 07:29 06/01/19 07:26 Problem List - Problems (1) Acute CHF (congestive heart failure) Assessment/Plan: -IV diuresis -daily weights -Low sodium diet -Monitor lytes -Echo:nl LV/RV. mild AI. no RVSP Problems reviewed: Yes Code(s): I50.9 - HEART FAILURE, UNSPECIFIED (2) COPD (chronic obstructive pulmonary disease) Assessment/Plan: -Seen by pulmonary -Tapering steroids -bronchodilators -Nasal O 2 PRN -Montelukast Problems reviewed: Yes Code(s): J44.9 - CHRONIC OBSTRUCTIVE PULMONARY DISEASE, UNSPECIFIED Qualifiers: COPD type: unspecified COPD Qualified Code(s): J44.9 - Chronic obstructive pulmonary disease, unspecified (3) Shingles Assessment/Plan: -Valacyclovir day 2, finish 7 days Problems reviewed: Yes Code(s): B02.9 - ZOSTER WITHOUT COMPLICATIONS (4) Hypokalemia Assessment/Plan: -KCl 40 meq given -monitor labs in AM Problems reviewed: Yes Code(s): E87.6 - HYPOKALEMIA Assessment/Plan see problem list
[2019-06-02] MEDS: HEPARIN NA (PORCINE) 5,000 UNITS/ML 1ML VIAL SQ SCH ×3 (06:24→21:03)
[2019-06-02] MEDS: FUROSEMIDE 40 MG/4 ML INJECTABLE VIAL IVPB SCH ×2 (07:00→13:20)
[2019-06-02 07:56] LABS: BLOOD UREA NITROGEN 32.5 mg/dL (7-18); CALCIUM 9.1 mg/dL (8.5-10.1); CREATININE 0.9 mg/dL (0.55-1.3); POTASSIUM 3.9 mmol/L (3.5-5.1)
[2019-06-02] MEDS: ALBUTEROL SO4 2.5/IPRATROPIUM 0.5 INH SOL 3 ML VIAL.NEB. NEB SCH ×4 (09:50→20:49)
[2019-06-02] MEDS: predniSONE 20 MG TABLET (UD) PO SCH (10:49)
[2019-06-02] MEDS: ENALAPRIL MALEATE 10 MG TABLET (FP) PO SCH (10:49)
[2019-06-02] MEDS: MONTELUKAST NA 10 MG TABLET PO SCH (10:50)
[2019-06-02] MEDS: valACYclovir HCL 500 MG TABLET (FP) PO SCH ×2 (10:50→21:02)
[2019-06-02] MEDS: BUDESONIDE/FORMETEROL FUMARATE 160/4.5 mcg INHALER IH SCH ×2 (10:50→21:03)
[2019-06-02] MEDS: NYSTATIN 100,000 UNIT/GM TOPICAL CREAM 15 GM TUBE TP SCH ×2 (10:50→21:03)
[2019-06-02] MEDS: NIFEdipine E.R. 30 MG TABLET (FP) PO SCH (10:50)
--- NOTE | 2019-06-02 13:16 | PN ---
Progress Note, Physician Chief Complaint: SOB CHF History of Present Illness: NAD SOB improved, no more than her usual SOB at home Seen by Cardiology On IV lasix 80 mg BID - Current Medication List Current Medications: Active Medications Acetaminophen (Tylenol -) 650 mg PO Q6H PRN PRN Reason: PAIN LEVEL 1-5 Albuterol/Ipratropium (Duoneb -) 1 amp NEB RQID [facility] Last Admin: 06/02/19 09:50 Dose: 1 amp Budesonide/Formoterol Fumarate (Symbicort 160/4.5mcg -) 1 puff IH BID [facility] Last Admin: 06/02/19 10:50 Dose: 1 puff Enalapril Maleate (Vasotec -) 10 mg PO DAILY [facility] Last Admin: 06/02/19 10:49 Dose: 10 mg Furosemide (Lasix Injection -) 80 mg IVPB BID@0600,1400 [facility] Last Admin: 06/02/19 07:00 Dose: 80 mg Heparin Sodium (Porcine) (Heparin -) 5,000 unit SQ TID [facility] Last Admin: 06/02/19 06:24 Dose: Not Given Montelukast Sodium (Singulair -) 10 mg PO DAILY [facility] Last Admin: 06/02/19 10:50 Dose: 10 mg Nifedipine (Procardia Xl -) 30 mg PO DAILY [facility] Last Admin: 06/02/19 10:50 Dose: 30 mg Nystatin (Mycostatin Cream -) 1 applic TP BID [facility] Last Admin: 06/02/19 10:50 Dose: 1 applic Prednisone (Deltasone -) 20 mg PO DAILY [facility] Last Admin: 06/02/19 10:49 Dose: 20 mg Valacyclovir HCl (Valtrex -) 1,000 mg PO BID [facility] Last Admin: 06/02/19 10:50 Dose: 1,000 mg - Objective Vital Signs: Vital Signs Temperature 97.3 F L 06/02/19 06:00 Pulse Rate 70 06/02/19 06:00 Respiratory Rate 18 06/02/19 06:00 Blood Pressure 145/63 06/02/19 06:00 O2 Sat by Pulse Oximetry (%) 94 L 06/02/19 08:56 Constitutional: Yes: Well Nourished, No Distress, Calm, Obese Cardiovascular: Yes: Regular Rate and Rhythm Respiratory: Yes: Regular, On Nasal O2 Gastrointestinal: Yes: WNL Genitourinary: Yes: WNL Musculoskeletal: Yes: WNL Extremities: Yes: WNL Edema: Yes Edema: LLE: 1+, RLE: 1+ Peripheral Pulses WNL: Yes Neurological: Yes: Alert, Oriented Psychiatric: Yes: Alert, Oriented Labs: CBC, BMP 05/28/19 07:29 06/02/19 06:00 Problem List - Problems (1) Acute CHF (congestive heart failure) Assessment/Plan: -IV diuresis -daily weights -Low sodium diet -Monitor lytes -Echo:nl LV/RV. mild AI. no RVSP -If stable in AM, can be discharged home on PO furosemide Problems reviewed: Yes Code(s): I50.9 - HEART FAILURE, UNSPECIFIED (2) COPD (chronic obstructive pulmonary disease) Assessment/Plan: -Seen by pulmonary -Tapering steroids -bronchodilators -Nasal O 2 PRN -Montelukast Problems reviewed: Yes Code(s): J44.9 - CHRONIC OBSTRUCTIVE PULMONARY DISEASE, UNSPECIFIED Qualifiers: COPD type: unspecified COPD Qualified Code(s): J44.9 - Chronic obstructive pulmonary disease, unspecified (3) Shingles Assessment/Plan: -Valacyclovir day 3, finish 7 days Problems reviewed: Yes Code(s): B02.9 - ZOSTER WITHOUT COMPLICATIONS (4) Hypokalemia Assessment/Plan: -resolved -BMP in AM Problems reviewed: Yes Code(s): E87.6 - HYPOKALEMIA Assessment/Plan see problem list
[2019-06-03] MEDS: HEPARIN NA (PORCINE) 5,000 UNITS/ML 1ML VIAL SQ SCH (05:17)
[2019-06-03] MEDS: FUROSEMIDE 40 MG/4 ML INJECTABLE VIAL IVPB SCH (05:17)
[2019-06-03 06:10] VITALS: BP 151/61; PULSE 60; TEMP 98.1
[2019-06-03] MEDS: ALBUTEROL SO4 2.5/IPRATROPIUM 0.5 INH SOL 3 ML VIAL.NEB. NEB SCH ×2 (08:27→08:28)
[2019-06-03 09:14] LABS: CALCIUM 9.1 mg/dl (8.5-10); CREATININE 0.9 mg/dl (0.55-1.3); POTASSIUM 3.4 mmol/L (3.5-5.1)
[2019-06-03] MEDS: predniSONE 20 MG TABLET (UD) PO SCH (10:35)
[2019-06-03] MEDS: valACYclovir HCL 500 MG TABLET (FP) PO SCH (10:35)
[2019-06-03] MEDS: NYSTATIN 100,000 UNIT/GM TOPICAL CREAM 15 GM TUBE TP SCH (10:35)
[2019-06-03] MEDS: ENALAPRIL MALEATE 10 MG TABLET (FP) PO SCH (10:35)
[2019-06-03] MEDS: MONTELUKAST NA 10 MG TABLET PO SCH (10:35)
[2019-06-03] MEDS: NIFEdipine E.R. 30 MG TABLET (FP) PO SCH (10:35)
[2019-06-03] MEDS: BUDESONIDE/FORMETEROL FUMARATE 160/4.5 mcg INHALER IH SCH (10:36)
--- NOTE | 2019-06-03 12:53 | DS ---
Physical Examination Vital Signs: Vital Signs Temperature 98.1 F 06/03/19 06:00 Pulse Rate 60 06/03/19 06:00 Respiratory Rate 16 06/03/19 07:50 Blood Pressure 151/61 06/03/19 06:00 O2 Sat by Pulse Oximetry (%) 95 06/03/19 07:50 Constitutional: Yes: No Distress Cardiovascular: Yes: Regular Rate and Rhythm Respiratory: Yes: Diminished Labs: CBC, BMP 05/28/19 07:29 06/03/19 07:25 Discharge Summary Problems reviewed: Yes Reason For Visit: CONGESTIVE HEART FAILURE/CHRONIC OBSTRUCTIVE PULM Current Active Problems Acute CHF (congestive heart failure) (Acute) Acute exacerbation of COPD with asthma (Acute) COPD (chronic obstructive pulmonary disease) (Acute) HTN (hypertension) (Acute) Hypokalemia (Acute) Rash and nonspecific skin eruption (Acute) Shingles (Acute) CHF (congestive heart failure) (Chronic) Procedures: Principal: CT SCAN Hospital Course: ADMITTED CHF/COPD TREATED IV LASIX AND STEROIDS, TAPERED DOWN AND F/U WITH CARDIOLOGY AND PMD IN 1 WEEK Condition: Good - Instructions Diet, Activity, Other Instructions: LOW SODIUM SEE YOUR PRIMARY DOCTOR IN 1 WEEK Referrals: Juan Diego Antonio MD [Primary Care Provider] - Disposition: VNS/HOME HEALTH CARE - Home Medications Comprehensive Discharge Medication List: Ambulatory Orders Furosemide 40 mg PO BID tablet 09/30/16 Montelukast Sodium [Singulair] 10 mg PO DAILY 08/15/18 Enalapril Maleate [Vasotec -] 10 mg PO DAILY 02/18/19 Nifedipine ER [Procardia XL -] 30 mg PO DAILY 02/18/19 Prednisone 30 mg PO DAILY 03/03/19 Budesonide/Formeterol Fumarate [SYMBICORT 160/4.5mcg -] 1 inh PO BID 05/27/19 Guaifenesin AC [Robitussin AC -] 5 ml PO HS 05/27/19 Acetaminophen [Tylenol .Regular Strength -] 650 mg PO Q6H PRN tablet 06/03/19 Albuterol 2.5/Ipratropium 0.5 [Duoneb -] 1 amp NEB RQID #120 amp 06/03/19 Nystatin Cream [Mycostatin Cream -] 1 applic TP BID #90 applic 06/03/19 predniSONE [Deltasone -] See Taper PO DAILY #20 tablet 06/03/19
== END 2019-06-03 13:39 | disposition home or self-care (01) | DRG 190 ==
LOC: FER 11:32 → OBSVTOIN 11:56 → FM/S 11:56
PROVIDERS: ADMIT Family Medicine; ATTEND Family Medicine
DX: J44.1 Chronic obstructive pulmonary disease with (acute) exacerbation (principal); I50.33 Acute on chronic diastolic (congestive) heart failure; Z68.42 Body mass index [BMI] 45.0-49.9, adult; J45.901 Unspecified asthma with (acute) exacerbation; I47.1 Supraventricular tachycardia; I11.0 Hypertensive heart disease with heart failure; B02.9 Zoster without complications; E66.9 Obesity, unspecified; E87.6 Hypokalemia; J20.9 Acute bronchitis, unspecified
CPT/HCPCS: 36415; 71045-TC-FY; 80048; 80053; 81003; 83735; 83880; 84484; 85025; 85027; 93005; 93306-TC; 94640; 97116-GP; 97162-GP; 99285-25; J1644

== ENCOUNTER 2020-09-21 12:33 | Inpatient (IN) | payer OTHER ==
[2020-09-21] MEDS ORDERED: ALBUTEROL SO4 2.5/IPRATROPIUM 0.5 INH SOL 3 ML VIAL.NEB. NEB ONE ×5 (12:57→19:43)
[2020-09-21] MEDS ORDERED: DEXAMETHASONE SOD PHOSPHATE 10 MG/1 ML VIAL IVPUSH ONE (14:07)
[2020-09-21 14:14] LABS: BASO % 2.4 % (0-2.0); EOS % 1.7 % (0-4.5); HEMATOCRIT 48.3 % (32.4-45.2); HEMOGLOBIN 16.4 GM/dl (10.7-15.3); LYMPH % 16.2 % (8-40); MEAN CELL VOLUME 91.2 fl (80-96); MEAN PLT VOLUME 9.8 fl (7.5-11.1); MONO % 6.7 % (3.8-10.2); PLATELET COUNT 220 K/MM3 (134-434)
[2020-09-21 14:17] LABS: CALCIUM 9.3 mg/dl (8.5-10); CREATININE 0.9 mg/dl (0.55-1.3)
[2020-09-21 14:19] LABS: ALBUMIN 3.9 g/dl (3.4-5.0); TOT PROT 6.4 g/dl (6.4-8.2)
[2020-09-21] MEDS ORDERED: CEFTRIAXONE 1 GM in DEXTROSE 5%-WATER - 50 ML IVPB ONE (14:38)
[2020-09-21] MEDS ORDERED: AZITHROMYCIN IVPB 500 MG in DEXTROSE 5%-WATER - 250 ML IVPB ONE (14:39)
[2020-09-21] MEDS ORDERED: cefTRIAXone SODIUM 1 GM VIAL ONE (14:45)
[2020-09-21 14:54] LABS: PLATELET ESTIMATE ADEQUATE
[2020-09-21 15:16] LABS: BILIRUBIN,TOTAL 0.9 mg/dl (0.2-1)
[2020-09-21] MEDS ORDERED: AZITHROMYCIN 500 MG VIAL IVPB ONE (15:20)
[2020-09-21 15:52] LABS: N-TERMINAL BNP 1800.6 pg/ml (5-450)
[2020-09-21] MEDS ORDERED: FUROSEMIDE 40 MG/4 ML INJECTABLE VIAL IVPUSH ONE (16:15)
[2020-09-21] MEDS ORDERED: FUROSEMIDE 40 MG/4 ML INJECTABLE VIAL ONE (16:16)
[2020-09-21] MEDS ORDERED: MAGNESIUM SULF 50% (8.12 MEQ/2 ML-1 GM VIAL) IVPB ONE (19:04)
[2020-09-21] MEDS ORDERED: MAGNESIUM 1GM/D5W - 2 GM/200 ML IVPB IVPB ONE (19:34)
[2020-09-21] MEDS: ALBUTEROL SO4 2.5/IPRATROPIUM 0.5 INH SOL 3 ML VIAL.NEB. NEB SCH ×2 (19:42→21:37)
[2020-09-21] MEDS: methylPREDNISolone NA SUCC 40 MG/1 ML VIAL IVPUSH SCH (21:40)
[2020-09-21 21:48] VITALS: BMI 47.3
[2020-09-21 22:00] LABS: EPITHELIAL CELLS FEW /hpf
[2020-09-21] MEDS: HEPARIN NA (PORCINE) 5,000 UNITS/ML 1ML VIAL SQ SCH (22:03)
[2020-09-22] MEDS: ALBUTEROL SO4 2.5/IPRATROPIUM 0.5 INH SOL 3 ML VIAL.NEB. NEB SCH ×7 (01:47→23:54)
[2020-09-22] MEDS: methylPREDNISolone NA SUCC 40 MG/1 ML VIAL IVPUSH SCH ×4 (02:37→19:53)
[2020-09-22] MEDS: FUROSEMIDE 40 MG/4 ML INJECTABLE VIAL IVPUSH SCH ×2 (06:40→13:22)
[2020-09-22] MEDS: HEPARIN NA (PORCINE) 5,000 UNITS/ML 1ML VIAL SQ SCH ×3 (06:41→21:12)
[2020-09-22 07:58] LABS: BASO % 1.7 % (0-2.0); HEMATOCRIT 47.6 % (32.4-45.2); HEMOGLOBIN 16.1 GM/dl (10.7-15.3); LYMPH % 5.7 % (8-40); MCH 30.5 pg (25.7-33.7); MCHC 33.8 g/dl (32.0-36.0); MEAN CELL VOLUME 90.1 fl (80-96); MEAN PLT VOLUME 9.7 fl (7.5-11.1); MONO % 0.6 % (3.8-10.2); PLATELET COUNT 237 K/MM3 (134-434); RBC 5.28 M/mm3 (3.60-5.2); RDW 13.1 % (11.6-15.6); WHITE BLOOD COUNT 9.7 K/mm3 (4.0-10.8)
[2020-09-22 08:15] LABS: ALBUMIN 4.1 g/dl (3.4-5.0); BILIRUBIN,TOTAL 0.7 mg/dl (0.2-1); CREATININE 0.8 mg/dl (0.55-1.3); MAGNESIUM 2.4 mg/dL (1.8-2.4); TOT PROT 6.7 g/dl (6.4-8.2)
[2020-09-22] MEDS ORDERED: DOXYCYCLINE HYCLATE 100 MG VIAL ONE ×2 (09:12→21:09)
[2020-09-22] MEDS ORDERED: DEXTROSE 5%-WATER 100 ML IVPB ONE ×2 (09:12→21:10)
[2020-09-22] MEDS ORDERED: cefTRIAXone SODIUM 1 GM VIAL ONE (09:13)
[2020-09-22] MEDS ORDERED: DEXTROSE 5%-WATER - 50 ML IVPB ONE (09:13)
[2020-09-22] MEDS: CEFTRIAXONE 1 GM in DEXTROSE 5%-WATER - 50 ML IVPB SCH (09:22)
[2020-09-22] MEDS: DOXYCYCLINE INJECTION 100 MG in DEXTROSE 5%-WATER 100 ML IVPB SCH ×2 (09:23→21:13)
[2020-09-22] MEDS: NIFEdipine E.R. 30 MG TABLET PO SCH (09:23)
[2020-09-22] MEDS: ENALAPRIL MALEATE 10 MG TABLET PO SCH (09:23)
[2020-09-22] MEDS ORDERED: AZITHROMYCIN IVPB 500 MG in DEXTROSE 5%-WATER - 250 ML IVPB SCH (10:00)
[2020-09-22] MEDS: guaiFENesin 200 MG/10 ML 10 ML UNIT-DOSE CUPS PO PRN (21:12)
[2020-09-23] MEDS: methylPREDNISolone NA SUCC 40 MG/1 ML VIAL IVPUSH SCH ×4 (03:17→21:26)
[2020-09-23] MEDS: ALBUTEROL SO4 2.5/IPRATROPIUM 0.5 INH SOL 3 ML VIAL.NEB. NEB SCH ×4 (03:19→17:01)
[2020-09-23] MEDS: HEPARIN NA (PORCINE) 5,000 UNITS/ML 1ML VIAL SQ SCH ×3 (06:45→21:27)
[2020-09-23] MEDS: FUROSEMIDE 40 MG/4 ML INJECTABLE VIAL IVPUSH SCH ×2 (06:45→13:46)
[2020-09-23 08:35] LABS: ALBUMIN 4.1 g/dl (3.4-5.0); BILIRUBIN,TOTAL 0.7 mg/dl (0.2-1); CALCIUM 9.5 mg/dl (8.5-10); TOT PROT 6.6 g/dl (6.4-8.2)
[2020-09-23] MEDS ORDERED: cefTRIAXone SODIUM 1 GM VIAL ONE (10:00)
[2020-09-23] MEDS ORDERED: DEXTROSE 5%-WATER - 50 ML IVPB ONE (10:00)
[2020-09-23] MEDS: ENALAPRIL MALEATE 10 MG TABLET PO SCH (10:29)
[2020-09-23] MEDS: CEFTRIAXONE 1 GM in DEXTROSE 5%-WATER - 50 ML IVPB SCH (10:29)
[2020-09-23] MEDS: NIFEdipine E.R. 30 MG TABLET PO SCH (10:29)
[2020-09-23] MEDS: BUDESONIDE/FORMETEROL FUMARATE 160/4.5 mcg INHALER IH SCH (21:26)
[2020-09-24] MEDS: methylPREDNISolone NA SUCC 40 MG/1 ML VIAL IVPUSH SCH ×4 (02:00→20:23)
[2020-09-24] MEDS: HEPARIN NA (PORCINE) 5,000 UNITS/ML 1ML VIAL SQ SCH ×3 (06:04→21:28)
[2020-09-24] MEDS: FUROSEMIDE 40 MG/4 ML INJECTABLE VIAL IVPUSH SCH ×2 (06:08→15:34)
[2020-09-24 07:08] LABS: SARS-CoV-2 NAA Not Detected (Not Detected)
[2020-09-24] MEDS ORDERED: cefTRIAXone SODIUM 1 GM VIAL ONE (09:32)
[2020-09-24] MEDS ORDERED: DEXTROSE 5%-WATER - 50 ML IVPB ONE (09:33)
[2020-09-24] MEDS: CEFTRIAXONE 1 GM in DEXTROSE 5%-WATER - 50 ML IVPB SCH (09:43)
[2020-09-24] MEDS: NIFEdipine E.R. 30 MG TABLET PO SCH (09:44)
[2020-09-24] MEDS: BUDESONIDE/FORMETEROL FUMARATE 160/4.5 mcg INHALER IH SCH ×2 (09:44→21:29)
[2020-09-24] MEDS: ENALAPRIL MALEATE 10 MG TABLET PO SCH (09:44)
[2020-09-24] MEDS: guaiFENesin 200 MG/10 ML 10 ML UNIT-DOSE CUPS PO PRN (15:47)
[2020-09-24 16:47] LABS: CALCIUM 9.7 mg/dl (8.5-10); CREATININE 1.1 mg/dl (0.55-1.3); MAGNESIUM 2.4 mg/dL (1.8-2.4)
[2020-09-25] MEDS: methylPREDNISolone NA SUCC 40 MG/1 ML VIAL IVPUSH SCH (01:19)
[2020-09-25] MEDS: guaiFENesin 200 MG/10 ML 10 ML UNIT-DOSE CUPS PO PRN (02:26)
[2020-09-25] MEDS: FUROSEMIDE 40 MG/4 ML INJECTABLE VIAL IVPUSH SCH (06:36)
[2020-09-25] MEDS: HEPARIN NA (PORCINE) 5,000 UNITS/ML 1ML VIAL SQ SCH ×3 (06:53→21:16)
[2020-09-25] MEDS ORDERED: DEXTROSE 5%-WATER - 50 ML IVPB ONE (07:26)
[2020-09-25] MEDS ORDERED: cefTRIAXone SODIUM 1 GM VIAL ONE (07:26)
[2020-09-25] MEDS: BUDESONIDE/FORMETEROL FUMARATE 160/4.5 mcg INHALER IH SCH ×2 (09:06→21:16)
[2020-09-25] MEDS: CEFTRIAXONE 1 GM in DEXTROSE 5%-WATER - 50 ML IVPB SCH (09:06)
[2020-09-25] MEDS: NIFEdipine E.R. 30 MG TABLET PO SCH (09:06)
[2020-09-25] MEDS: ENALAPRIL MALEATE 10 MG TABLET PO SCH (09:06)
[2020-09-25] MEDS ORDERED: predniSONE 10 MG TABLET (UD) PO SCH (10:00)
[2020-09-25] MEDS: CEFUROXIME AXETIL 500 MG TABLET PO SCH (21:07)
[2020-09-26] MEDS: HEPARIN NA (PORCINE) 5,000 UNITS/ML 1ML VIAL SQ SCH ×3 (06:44→21:05)
[2020-09-26] MEDS: CEFUROXIME AXETIL 500 MG TABLET PO SCH ×2 (09:01→21:05)
[2020-09-26] MEDS: BUDESONIDE/FORMETEROL FUMARATE 160/4.5 mcg INHALER IH SCH ×2 (09:01→21:05)
[2020-09-26] MEDS: predniSONE 10 MG TABLET (UD) PO SCH (09:01)
[2020-09-26] MEDS: FUROSEMIDE 20 MG TABLET (FP) PO SCH (09:01)
[2020-09-26] MEDS: NIFEdipine E.R. 30 MG TABLET PO SCH (09:01)
[2020-09-26] MEDS: ENALAPRIL MALEATE 10 MG TABLET PO SCH (09:01)
[2020-09-27] MEDS: HEPARIN NA (PORCINE) 5,000 UNITS/ML 1ML VIAL SQ SCH ×3 (06:03→21:23)
[2020-09-27] MEDS: CEFUROXIME AXETIL 500 MG TABLET PO SCH ×2 (09:30→21:22)
[2020-09-27] MEDS: NIFEdipine E.R. 30 MG TABLET PO SCH (09:31)
[2020-09-27] MEDS: predniSONE 10 MG TABLET (UD) PO SCH (09:31)
[2020-09-27] MEDS: FUROSEMIDE 20 MG TABLET (FP) PO SCH (09:31)
[2020-09-27] MEDS: BUDESONIDE/FORMETEROL FUMARATE 160/4.5 mcg INHALER IH SCH ×2 (09:32→21:23)
[2020-09-27] MEDS: ENALAPRIL MALEATE 10 MG TABLET PO SCH (09:32)
[2020-09-27] MEDS: guaiFENesin 200 MG/10 ML 10 ML UNIT-DOSE CUPS PO PRN (21:29)
[2020-09-28] MEDS: HEPARIN NA (PORCINE) 5,000 UNITS/ML 1ML VIAL SQ SCH (05:31)
[2020-09-28 06:55] VITALS: BP 132/67; PULSE 63; TEMP 97.8
[2020-09-28] MEDS: CEFUROXIME AXETIL 500 MG TABLET PO SCH (09:30)
[2020-09-28] MEDS: NIFEdipine E.R. 30 MG TABLET PO SCH (09:30)
[2020-09-28] MEDS: ENALAPRIL MALEATE 10 MG TABLET PO SCH (09:30)
[2020-09-28] MEDS: predniSONE 10 MG TABLET (UD) PO SCH (09:30)
[2020-09-28] MEDS: FUROSEMIDE 20 MG TABLET (FP) PO SCH (09:30)
[2020-09-28] MEDS: BUDESONIDE/FORMETEROL FUMARATE 160/4.5 mcg INHALER IH SCH (09:31)
== END 2020-09-28 12:48 | disposition home or self-care (01) | DRG 291 ==
LOC: FER 12:33 → FM/S 12:58
PROVIDERS: ADMIT Hospitalist; ATTEND Family Medicine
DX: I11.0 Hypertensive heart disease with heart failure (principal); J18.9 Pneumonia, unspecified organism; J44.1 Chronic obstructive pulmonary disease with (acute) exacerbation; Z68.42 Body mass index [BMI] 45.0-49.9, adult; I24.8 Other forms of acute ischemic heart disease; I50.33 Acute on chronic diastolic (congestive) heart failure; E66.01 Morbid (severe) obesity due to excess calories; D72.829 Elevated white blood cell count, unspecified
CPT/HCPCS: 36415; 71045-TC-FY; 71250-TC; 80048; 80053; 81003; 81015; 82550; 82553; 82728; 82962; 83615; 83735; 83880; 84484; 85025; 87040; 87086; 87324; 87449; 87804; 87899; 93005; 93306-TC; 94640; 97116-GP; 97162-GP; 99285-25; C9803; J1100; J1644; U0003; U0005

== ENCOUNTER 2020-11-04 11:52 | Inpatient (IN) | payer OTHER ==
[2020-11-04] MEDS ORDERED: methylPREDNISolone NA SUCC 125 MG/2 ML VIAL IVPUSH ONE (12:00)
[2020-11-04] MEDS ORDERED: methylPREDNISolone NA SUCC 125 MG/2 ML VIAL ONE (12:30)
[2020-11-04] MEDS ORDERED: ALBUTEROL SO4 2.5/IPRATROPIUM 0.5 INH SOL 3 ML VIAL.NEB. NEB ONE (12:30)
[2020-11-04] MEDS: ALBUTEROL SO4 2.5/IPRATROPIUM 0.5 INH SOL 3 ML VIAL.NEB. NEB SCH ×4 (12:36→20:11)
[2020-11-04 12:53] LABS: ALBUMIN 3.7 g/dl (3.4-5.0); CREATININE 0.8 mg/dl (0.55-1.3)
[2020-11-04 13:01] LABS: HEMATOCRIT 47.8 % (32.4-45.2); HEMOGLOBIN 15.6 GM/dl (10.7-15.3); MCH 29.9 pg (25.7-33.7); MCHC 32.7 g/dl (32.0-36.0); MEAN CELL VOLUME 91.7 fl (80-96); MEAN PLT VOLUME 10.7 fl (7.5-11.1); PLATELET COUNT 208 K/MM3 (134-434); RBC 5.22 M/mm3 (3.60-5.2); RDW 13.3 % (11.6-15.6); WHITE BLOOD COUNT 9.5 K/mm3 (4.0-10.8)
[2020-11-04 13:07] LABS: ADD RBC MORPHOLOGY YES
[2020-11-04 13:26] LABS: N-TERMINAL BNP 1216.1 pg/ml (5-450)
[2020-11-04] MEDS ORDERED: FUROSEMIDE 40 MG/4 ML INJECTABLE VIAL IVPUSH ONE (14:03)
[2020-11-04] MEDS ORDERED: FUROSEMIDE 40 MG/4 ML INJECTABLE VIAL ONE (14:12)
[2020-11-04 14:14] LABS: PLATELET ESTIMATE ADEQUATE
[2020-11-04] MEDS ORDERED: ACETAMINOPHEN 325 MG TABLET (FP) PO PRN (18:31)
[2020-11-04] MEDS: predniSONE 20 MG TABLET (UD) PO SCH (21:36)
[2020-11-04] MEDS: HEPARIN NA (PORCINE) 5,000 UNITS/ML 1ML VIAL SQ SCH (21:36)
[2020-11-04] MEDS: ENALAPRIL MALEATE 10 MG TABLET PO SCH (21:36)
[2020-11-05] MEDS: FUROSEMIDE 40 MG/4 ML INJECTABLE VIAL IVPUSH SCH ×2 (06:00→14:50)
[2020-11-05 07:35] VITALS: BMI 43.9
[2020-11-05 08:02] LABS: BASO % 1.6 % (0-2.0); HEMATOCRIT 45.9 % (32.4-45.2); HEMOGLOBIN 16.1 GM/dl (10.7-15.3); LYMPH % 8.4 % (8-40); MCH 31.4 pg (25.7-33.7); MEAN CELL VOLUME 89.8 fl (80-96); MEAN PLT VOLUME 10.4 fl (7.5-11.1); MONO % 2.1 % (3.8-10.2); NEUT % 87.9 % (42.8-82.8); PLATELET COUNT 217 K/MM3 (134-434); RBC 5.11 M/mm3 (3.60-5.2); RDW 12.9 % (11.6-15.6); WHITE BLOOD COUNT 9.8 K/mm3 (4.0-10.8)
[2020-11-05 08:11] LABS: ALBUMIN 3.8 g/dl (3.4-5.0); BILIRUBIN,TOTAL 0.7 mg/dl (0.2-1); CALCIUM 9.7 mg/dl (8.5-10); CREATININE 0.8 mg/dl (0.55-1.3); TOT PROT 6.1 g/dl (6.4-8.2)
[2020-11-05] MEDS: ALBUTEROL SO4 2.5/IPRATROPIUM 0.5 INH SOL 3 ML VIAL.NEB. NEB SCH ×4 (08:24→20:20)
[2020-11-05] MEDS: POTASSIUM CHLORIDE TABS 20 MEQ TABLET.ER (FP) PO SCH (09:31)
[2020-11-05] MEDS: NIFEdipine E.R. 30 MG TABLET PO SCH (09:31)
[2020-11-05] MEDS: predniSONE 20 MG TABLET (UD) PO SCH (09:32)
[2020-11-05] MEDS: MONTELUKAST NA 10 MG TABLET PO SCH (09:32)
[2020-11-05] MEDS: HEPARIN NA (PORCINE) 5,000 UNITS/ML 1ML VIAL SQ SCH ×2 (09:32→21:30)
[2020-11-05] MEDS: ENALAPRIL MALEATE 10 MG TABLET PO SCH ×2 (09:32→21:29)
[2020-11-05] MEDS: methylPREDNISolone NA SUCC 40 MG/1 ML VIAL IVPUSH SCH (20:20)
[2020-11-05] MEDS: PATIENT'S OWN MEDICATION (NON-FORMULARY) (Beclomethasone Dipropionate [Qvar] 8.7 GM Aer.W. IH SCH (21:30)
[2020-11-05] MEDS: MOMETASONE FUROATE 220 MCG/IH INHALER IH SCH (22:41)
[2020-11-06] MEDS: methylPREDNISolone NA SUCC 40 MG/1 ML VIAL IVPUSH SCH ×3 (02:16→17:18)
[2020-11-06] MEDS: ALBUTEROL SO4 2.5/IPRATROPIUM 0.5 INH SOL 3 ML VIAL.NEB. NEB SCH ×4 (08:53→21:28)
[2020-11-06] MEDS: MONTELUKAST NA 10 MG TABLET PO SCH (09:32)
[2020-11-06] MEDS: FUROSEMIDE 40 MG/4 ML INJECTABLE VIAL IVPUSH SCH (09:32)
[2020-11-06] MEDS: ENALAPRIL MALEATE 10 MG TABLET PO SCH ×3 (09:32→21:25)
[2020-11-06] MEDS: POTASSIUM CHLORIDE TABS 20 MEQ TABLET.ER (FP) PO SCH (09:32)
[2020-11-06] MEDS: HEPARIN NA (PORCINE) 5,000 UNITS/ML 1ML VIAL SQ SCH ×3 (09:33→21:28)
[2020-11-06] MEDS: NIFEdipine E.R. 30 MG TABLET PO SCH (09:33)
[2020-11-06] MEDS: MOMETASONE FUROATE 220 MCG/IH INHALER IH SCH ×2 (09:34→21:25)
[2020-11-06] MEDS: guaiFENesin/D-METHORPHAN HB 10 ML UNIT-DOSE CUPS PO PRN (21:32)
[2020-11-07] MEDS: methylPREDNISolone NA SUCC 40 MG/1 ML VIAL IVPUSH SCH ×3 (03:00→18:11)
[2020-11-07] MEDS: ALBUTEROL SO4 2.5/IPRATROPIUM 0.5 INH SOL 3 ML VIAL.NEB. NEB SCH ×4 (08:00→21:42)
[2020-11-07 08:14] LABS: CALCIUM 9.4 mg/dl (8.5-10); MAGNESIUM 2.2 mg/dL (1.8-2.4)
[2020-11-07] MEDS: FUROSEMIDE 40 MG/4 ML INJECTABLE VIAL IVPUSH SCH (09:49)
[2020-11-07] MEDS: ENALAPRIL MALEATE 10 MG TABLET PO SCH ×2 (09:50→21:44)
[2020-11-07] MEDS: MOMETASONE FUROATE 220 MCG/IH INHALER IH SCH ×2 (09:50→21:44)
[2020-11-07] MEDS: MONTELUKAST NA 10 MG TABLET PO SCH (09:56)
[2020-11-07] MEDS: NIFEdipine E.R. 30 MG TABLET PO SCH (09:56)
[2020-11-07] MEDS: POTASSIUM CHLORIDE TABS 20 MEQ TABLET.ER (FP) PO SCH (09:57)
[2020-11-07] MEDS: HEPARIN NA (PORCINE) 5,000 UNITS/ML 1ML VIAL SQ SCH ×2 (09:57→21:44)
[2020-11-07] MEDS: PATIENT'S OWN MEDICATION (NON-FORMULARY) (Beclomethasone Dipropionate [Qvar] 8.7 GM Aer.W. IH SCH (12:50)
[2020-11-08] MEDS: methylPREDNISolone NA SUCC 40 MG/1 ML VIAL IVPUSH SCH ×3 (01:32→17:00)
[2020-11-08] MEDS: HEPARIN NA (PORCINE) 5,000 UNITS/ML 1ML VIAL SQ SCH ×3 (09:23→22:32)
[2020-11-08] MEDS: FUROSEMIDE 40 MG/4 ML INJECTABLE VIAL IVPUSH SCH (09:23)
[2020-11-08] MEDS: NIFEdipine E.R. 30 MG TABLET PO SCH (09:24)
[2020-11-08] MEDS: MONTELUKAST NA 10 MG TABLET PO SCH (09:24)
[2020-11-08] MEDS: MOMETASONE FUROATE 220 MCG/IH INHALER IH SCH ×2 (09:24→22:32)
[2020-11-08] MEDS: POTASSIUM CHLORIDE TABS 20 MEQ TABLET.ER (FP) PO SCH (09:24)
[2020-11-08] MEDS: ENALAPRIL MALEATE 10 MG TABLET PO SCH ×2 (09:24→22:31)
[2020-11-08] MEDS: ALBUTEROL SO4 2.5/IPRATROPIUM 0.5 INH SOL 3 ML VIAL.NEB. NEB SCH ×4 (09:25→20:20)
[2020-11-08 09:38] LABS: CALCIUM 9.1 mg/dl (8.5-10)
[2020-11-09] MEDS: methylPREDNISolone NA SUCC 40 MG/1 ML VIAL IVPUSH SCH ×3 (01:36→18:18)
[2020-11-09] MEDS: ALBUTEROL SO4 2.5/IPRATROPIUM 0.5 INH SOL 3 ML VIAL.NEB. NEB SCH ×4 (08:06→20:39)
[2020-11-09] MEDS ORDERED: PT OWN MED DRAWER 7, Y5N ONE ×2 (10:19→21:10)
[2020-11-09] MEDS: FUROSEMIDE 40 MG/4 ML INJECTABLE VIAL IVPUSH SCH ×2 (10:24→20:39)
[2020-11-09] MEDS: MOMETASONE FUROATE 220 MCG/IH INHALER IH SCH ×2 (10:24→22:39)
[2020-11-09] MEDS: POTASSIUM CHLORIDE TABS 20 MEQ TABLET.ER (FP) PO SCH (10:24)
[2020-11-09] MEDS: HEPARIN NA (PORCINE) 5,000 UNITS/ML 1ML VIAL SQ SCH ×2 (10:24→22:39)
[2020-11-09] MEDS: MONTELUKAST NA 10 MG TABLET PO SCH (10:25)
[2020-11-09] MEDS: ENALAPRIL MALEATE 10 MG TABLET PO SCH ×2 (10:25→22:32)
[2020-11-09] MEDS: NIFEdipine E.R. 30 MG TABLET PO SCH (10:25)
[2020-11-09 12:05] LABS: CALCIUM 9.3 mg/dl (8.5-10)
[2020-11-09 12:06] LABS: ALBUMIN 3.8 g/dl (3.4-5.0); BILIRUBIN,TOTAL 0.9 mg/dl (0.2-1)
[2020-11-09] MEDS: INSULIN SLIDING SCALE (NOVOLOG) 1 VIAL SQ SCH ×2 (16:30→22:39)
[2020-11-10] MEDS: methylPREDNISolone NA SUCC 40 MG/1 ML VIAL IVPUSH SCH ×3 (01:27→17:54)
[2020-11-10] MEDS: INSULIN SLIDING SCALE (NOVOLOG) 1 VIAL SQ SCH ×4 (07:10→21:20)
[2020-11-10 08:06] LABS: ALBUMIN 3.5 g/dl (3.4-5.0); CALCIUM 8.9 mg/dl (8.5-10); CREATININE 1.1 mg/dl (0.55-1.3); TOT PROT 5.5 g/dl (6.4-8.2)
[2020-11-10] MEDS ORDERED: PT OWN MED DRAWER 7, Y5N ONE (09:08)
[2020-11-10] MEDS: FUROSEMIDE 40 MG/4 ML INJECTABLE VIAL IVPUSH SCH ×2 (09:22→15:55)
[2020-11-10] MEDS: MONTELUKAST NA 10 MG TABLET PO SCH (09:22)
[2020-11-10] MEDS: ALBUTEROL SO4 2.5/IPRATROPIUM 0.5 INH SOL 3 ML VIAL.NEB. NEB SCH ×4 (09:23→21:15)
[2020-11-10] MEDS: NIFEdipine E.R. 30 MG TABLET PO SCH (09:23)
[2020-11-10] MEDS: POTASSIUM CHLORIDE TABS 20 MEQ TABLET.ER (FP) PO SCH (09:23)
[2020-11-10] MEDS: ENALAPRIL MALEATE 10 MG TABLET PO SCH ×2 (09:25→21:15)
[2020-11-10] MEDS: HEPARIN NA (PORCINE) 5,000 UNITS/ML 1ML VIAL SQ SCH ×2 (09:25→23:46)
[2020-11-10] MEDS: MOMETASONE FUROATE 220 MCG/IH INHALER IH SCH ×2 (09:26→21:18)
[2020-11-10] MEDS: guaiFENesin/D-METHORPHAN HB 10 ML UNIT-DOSE CUPS PO PRN (23:58)
[2020-11-11] MEDS: methylPREDNISolone NA SUCC 40 MG/1 ML VIAL IVPUSH SCH (01:12)
[2020-11-11 01:18] VITALS: BP 148/59; PULSE 64; TEMP 97.9
[2020-11-11] MEDS: FUROSEMIDE 40 MG/4 ML INJECTABLE VIAL IVPUSH SCH (05:58)
[2020-11-11 07:11] LABS: HEMATOCRIT 52.2 % (32.4-45.2); HEMOGLOBIN 17.2 GM/dl (10.7-15.3); MCH 29.7 pg (25.7-33.7); MCHC 32.9 g/dl (32.0-36.0); MEAN CELL VOLUME 90.3 fl (80-96); MEAN PLT VOLUME 10.3 fl (7.5-11.1); PLATELET COUNT 209 K/MM3 (134-434); RBC 5.78 M/mm3 (3.60-5.2); RDW 13.3 % (11.6-15.6); WHITE BLOOD COUNT 17.9 K/mm3 (4.0-10.8)
[2020-11-11] MEDS: INSULIN SLIDING SCALE (NOVOLOG) 1 VIAL SQ SCH (07:16)
[2020-11-11 07:28] LABS: ALBUMIN 3.8 g/dl (3.4-5.0); BILIRUBIN,TOTAL 1.1 mg/dl (0.2-1); CREATININE 1.1 mg/dl (0.55-1.3); MAGNESIUM 2.4 mg/dL (1.8-2.4); TOT PROT 6.2 g/dl (6.4-8.2)
== END 2020-11-11 08:59 | disposition home health service (06) | DRG 291 ==
LOC: FER 11:52 → FM/S 14:20 → OBSVTOIN 18:31
PROVIDERS: ADMIT Family Medicine; ATTEND Family Medicine
DX: I11.0 Hypertensive heart disease with heart failure (principal); J18.9 Pneumonia, unspecified organism; J44.1 Chronic obstructive pulmonary disease with (acute) exacerbation; Z68.41 Body mass index [BMI] 40.0-44.9, adult; I50.43 Acute on chronic combined systolic (congestive) and diastolic (congestive) heart failure; I44.7 Left bundle-branch block, unspecified; E04.1 Nontoxic single thyroid nodule; E66.01 Morbid (severe) obesity due to excess calories
CPT/HCPCS: 36415; 71045-TC-FY; 71046-TC-FY; 80048; 80053; 82550; 82962; 83735; 83880; 84443; 84484; 85025; 85027; 93005; 94640; 97116-GP; 97162-GP; 99285-25; C9803; G0378; J1644; U0003; U0005

== ENCOUNTER 2021-06-16 16:47 | Inpatient (IN) | payer OTHER ==
[2021-06-16 18:39] LABS: ALBUMIN 3.8 g/dl (3.4-5.0); ALK PHOS 119 U/L (45-117); ANION GAP 8 MMOL/L (8-16); CALCIUM 9.2 mg/dl (8.5-10); CHLORIDE 104 mmol/L (98-107); CO2 29 mmol/L (21-32); CREATININE 0.8 mg/dl (0.55-1.3); GLUCOSE,RANDOM 98 mg/dl (74-106); SGOT/AST 24 U/L (15-37); SGPT/ALT 20 U/L (13-61); SODIUM 141 mmol/L (136-145); TOT PROT 6.5 g/dl (6.4-8.2)
[2021-06-16 18:49] LABS: ACTIVATED PTT 28.4 SECONDS (25.2-36.5)
[2021-06-16 18:54] LABS: INR 1.1 (0.83-1.09); PROTHROMBIN TIME (PATIENT) 12.2 SEC (9.7-13.0)
[2021-06-16 20:07] LABS: BASO % 0.7 % (0-2.0); EOS % 1.7 % (0-4.5); HEMATOCRIT 49.4 % (32.4-45.2); HEMOGLOBIN 15.9 GM/dL (10.7-15.3); LYMPH % 13.4 % (8-40); MCH 29.1 pg (25.7-33.7); MCHC 32.1 g/dl (32.0-36.0); MEAN CELL VOLUME 90.6 fl (80-96); MEAN PLT VOLUME 10.5 fl (7.5-11.1); MONO % 9.2 % (3.8-10.2); PLATELET COUNT 255 10^3/uL (134-434); RBC 5.46 M/mm3 (3.60-5.2); RDW 13.8 % (11.6-15.6); WHITE BLOOD COUNT 11.9 K/mm3 (4.0-10.0)
[2021-06-16] MEDS ORDERED: FUROSEMIDE 40 MG/4 ML INJECTABLE VIAL IVPUSH ONE (21:14)
[2021-06-16] MEDS ORDERED: FUROSEMIDE 40 MG/4 ML INJECTABLE VIAL ONE (21:15)
[2021-06-17 08:10] LABS: ALBUMIN 3.5 g/dl (3.4-5.0); BILIRUBIN,TOTAL 1.2 mg/dl (0.2-1); CALCIUM 8.9 mg/dl (8.5-10); CREATININE 0.8 mg/dl (0.55-1.3); TOT PROT 5.7 g/dl (6.4-8.2)
[2021-06-17] MEDS: FUROSEMIDE 40 MG/4 ML INJECTABLE VIAL IVPUSH SCH (09:23)
[2021-06-17] MEDS: TIOTROPIUM BROMIDE 2.5 MCG (SPIRIVA) RESPIMAT INHALER IH SCH (09:24)
[2021-06-17 09:45] LABS: BASO % 1.2 % (0-2.0); HEMATOCRIT 46.7 % (32.4-45.2); LYMPH % 21.9 % (8-40); MCH 29.1 pg (25.7-33.7); MEAN CELL VOLUME 90.8 fl (80-96); MEAN PLT VOLUME 10.5 fl (7.5-11.1); MONO % 10.2 % (3.8-10.2); NEUT % 63.7 % (42.8-82.8); PLATELET COUNT 241 10^3/uL (134-434); RBC 5.14 M/mm3 (3.60-5.2); RDW 14.1 % (11.6-15.6); WHITE BLOOD COUNT 9.5 K/mm3 (4.0-10.0)
[2021-06-17] MEDS: POTASSIUM CHLORIDE TABS 20 MEQ TABLET.ER (FP) PO SCH (16:08)
[2021-06-17] MEDS: guaiFENesin 200 MG/10 ML 10 ML UNIT-DOSE CUPS PO PRN (17:13)
[2021-06-17] MEDS: ENALAPRIL MALEATE 10 MG TABLET PO SCH (21:09)
[2021-06-17] MEDS: MONTELUKAST NA 10 MG TABLET PO SCH (21:09)
[2021-06-17] MEDS: ALBUTEROL SO4 2.5/IPRATROPIUM 0.5 INH SOL 3 ML VIAL.NEB. NEB PRN (23:16)
[2021-06-18] MEDS: TIOTROPIUM BROMIDE 2.5 MCG (SPIRIVA) RESPIMAT INHALER IH SCH (09:03)
[2021-06-18] MEDS: POTASSIUM CHLORIDE TABS 20 MEQ TABLET.ER (FP) PO SCH (09:04)
[2021-06-18] MEDS: ALBUTEROL SO4 2.5/IPRATROPIUM 0.5 INH SOL 3 ML VIAL.NEB. NEB PRN (09:04)
[2021-06-18] MEDS: ENALAPRIL MALEATE 10 MG TABLET PO SCH ×2 (09:04→21:16)
[2021-06-18] MEDS: FUROSEMIDE 40 MG/4 ML INJECTABLE VIAL IVPUSH SCH (09:05)
[2021-06-18 14:48] LABS: CREATININE 1.1 mg/dl (0.55-1.3)
[2021-06-18] MEDS: guaiFENesin 200 MG/10 ML 10 ML UNIT-DOSE CUPS PO PRN (15:50)
[2021-06-18 16:27] LABS: HEMATOCRIT 45.8 % (32.4-45.2); HEMOGLOBIN 14.8 GM/dL (10.7-15.3); MCH 29.3 pg (25.7-33.7); MCHC 32.3 g/dl (32.0-36.0); MEAN CELL VOLUME 90.7 fl (80-96); MEAN PLT VOLUME 10.1 fl (7.5-11.1); PLATELET COUNT 240 10^3/uL (134-434); RBC 5.05 M/mm3 (3.60-5.2); RDW 13.9 % (11.6-15.6); WHITE BLOOD COUNT 9.1 K/mm3 (4.0-10.0)
[2021-06-18] MEDS ORDERED: FUROSEMIDE 40 MG/4 ML INJECTABLE VIAL IVPUSH ONE (16:57)
[2021-06-18] MEDS: MONTELUKAST NA 10 MG TABLET PO SCH (21:16)
[2021-06-19] MEDS: ALBUTEROL SO4 2.5/IPRATROPIUM 0.5 INH SOL 3 ML VIAL.NEB. NEB PRN ×3 (05:56→19:29)
[2021-06-19] MEDS: FUROSEMIDE 40 MG/4 ML INJECTABLE VIAL IVPUSH SCH ×2 (06:44→14:27)
[2021-06-19] MEDS: POTASSIUM CHLORIDE TABS 20 MEQ TABLET.ER (FP) PO SCH (09:40)
[2021-06-19] MEDS: ENALAPRIL MALEATE 10 MG TABLET PO SCH ×2 (09:40→22:00)
[2021-06-19] MEDS: TIOTROPIUM BROMIDE 2.5 MCG (SPIRIVA) RESPIMAT INHALER IH SCH (09:41)
[2021-06-19 09:54] LABS: CALCIUM 8.9 mg/dl (8.5-10); CREATININE 0.9 mg/dl (0.55-1.3)
[2021-06-19 10:29] LABS: HEMATOCRIT 46.9 % (32.4-45.2); HEMOGLOBIN 15.2 GM/dL (10.7-15.3); MCH 29.5 pg (25.7-33.7); MCHC 32.4 g/dl (32.0-36.0); MEAN CELL VOLUME 91.3 fl (80-96); MEAN PLT VOLUME 10.6 fl (7.5-11.1); PLATELET COUNT 242 10^3/uL (134-434); RBC 5.14 M/mm3 (3.60-5.2); WHITE BLOOD COUNT 10.1 K/mm3 (4.0-10.0)
[2021-06-19 19:09] VITALS: BMI 44.9
[2021-06-19] MEDS: MONTELUKAST NA 10 MG TABLET PO SCH (22:00)
[2021-06-19] MEDS: guaiFENesin 200 MG/10 ML 10 ML UNIT-DOSE CUPS PO PRN (22:05)
[2021-06-20] MEDS: ALBUTEROL SO4 2.5/IPRATROPIUM 0.5 INH SOL 3 ML VIAL.NEB. NEB PRN ×3 (05:14→21:15)
[2021-06-20] MEDS: FUROSEMIDE 40 MG/4 ML INJECTABLE VIAL IVPUSH SCH ×2 (06:22→14:22)
[2021-06-20 09:23] LABS: CALCIUM 9.1 mg/dl (8.5-10); CREATININE 0.9 mg/dl (0.55-1.3); MAGNESIUM 2.2 mg/dL (1.8-2.4)
[2021-06-20] MEDS: POTASSIUM CHLORIDE TABS 20 MEQ TABLET.ER (FP) PO SCH (10:04)
[2021-06-20] MEDS: TIOTROPIUM BROMIDE 2.5 MCG (SPIRIVA) RESPIMAT INHALER IH SCH (10:04)
[2021-06-20] MEDS: ENALAPRIL MALEATE 10 MG TABLET PO SCH ×2 (10:04→21:14)
[2021-06-20 13:58] LABS: BASO % 1.1 % (0-2.0); EOS % 3.1 % (0-4.5); HEMATOCRIT 44.9 % (32.4-45.2); HEMOGLOBIN 14.8 GM/dL (10.7-15.3); MCH 29.9 pg (25.7-33.7); MEAN CELL VOLUME 90.4 fl (80-96); MEAN PLT VOLUME 9.8 fl (7.5-11.1); MONO % 14.1 % (3.8-10.2); NEUT % 64.7 % (42.8-82.8); PLATELET COUNT 219 10^3/uL (134-434); RBC 4.96 M/mm3 (3.60-5.2); RDW 13.8 % (11.6-15.6); WHITE BLOOD COUNT 9.3 K/mm3 (4.0-10.0)
[2021-06-20] MEDS: MONTELUKAST NA 10 MG TABLET PO SCH (21:14)
[2021-06-21] MEDS: ALBUTEROL SO4 2.5/IPRATROPIUM 0.5 INH SOL 3 ML VIAL.NEB. NEB PRN ×2 (04:13→21:15)
[2021-06-21] MEDS: FUROSEMIDE 40 MG/4 ML INJECTABLE VIAL IVPUSH SCH ×2 (07:24→14:16)
[2021-06-21 09:11] LABS: CALCIUM 9.2 mg/dl (8.5-10)
[2021-06-21] MEDS: POTASSIUM CHLORIDE TABS 20 MEQ TABLET.ER (FP) PO SCH (09:51)
[2021-06-21] MEDS: ENALAPRIL MALEATE 10 MG TABLET PO SCH ×2 (09:51→21:15)
[2021-06-21] MEDS: TIOTROPIUM BROMIDE 2.5 MCG (SPIRIVA) RESPIMAT INHALER IH SCH (09:56)
[2021-06-21] MEDS: MONTELUKAST NA 10 MG TABLET PO SCH (21:15)
[2021-06-22] MEDS: FUROSEMIDE 40 MG/4 ML INJECTABLE VIAL IVPUSH SCH (06:05)
[2021-06-22] MEDS: TORSEMIDE 20 MG TABLET (FP) PO SCH ×2 (10:11→21:47)
[2021-06-22] MEDS: ENALAPRIL MALEATE 10 MG TABLET PO SCH ×2 (10:12→21:47)
[2021-06-22] MEDS: POTASSIUM CHLORIDE TABS 20 MEQ TABLET.ER (FP) PO SCH (10:12)
[2021-06-22] MEDS: TIOTROPIUM BROMIDE 2.5 MCG (SPIRIVA) RESPIMAT INHALER IH SCH (10:14)
[2021-06-22] MEDS: BUDESONIDE/FORMETEROL FUMARATE 160/4.5 mcg INHALER IH SCH ×2 (10:15→21:49)
[2021-06-22] MEDS: MONTELUKAST NA 10 MG TABLET PO SCH (21:47)
[2021-06-23] MEDS: POTASSIUM CHLORIDE TABS 20 MEQ TABLET.ER (FP) PO SCH (09:02)
[2021-06-23] MEDS: TORSEMIDE 20 MG TABLET (FP) PO SCH (09:03)
[2021-06-23] MEDS: ENALAPRIL MALEATE 10 MG TABLET PO SCH (09:03)
[2021-06-23] MEDS: BUDESONIDE/FORMETEROL FUMARATE 160/4.5 mcg INHALER IH SCH (09:05)
[2021-06-23 10:09] VITALS: BP 137/62; PULSE 102; TEMP 97.9
== END 2021-06-23 11:06 | disposition home or self-care (01) | DRG 291 ==
LOC: FER 16:47 → FM/S 21:29
PROVIDERS: ADMIT Internal Medicine; ATTEND Family Medicine
DX: I11.0 Hypertensive heart disease with heart failure (principal); I50.43 Acute on chronic combined systolic (congestive) and diastolic (congestive) heart failure; J44.9 Chronic obstructive pulmonary disease, unspecified; D72.829 Elevated white blood cell count, unspecified; E66.01 Morbid (severe) obesity due to excess calories; Z68.37 Body mass index [BMI] 37.0-37.9, adult; I44.7 Left bundle-branch block, unspecified; Z99.81 Dependence on supplemental oxygen; R91.1 Solitary pulmonary nodule
CPT/HCPCS: 36415; 71045-TC-FY; 80048; 80053; 81003; 83735; 84484; 85025; 85027; 85610; 85730; 87086; 87804; 93005; 94640; 97116-GP; 97162-GP; 99285-25; C9803; U0003; U0005

== ENCOUNTER 2021-07-14 16:31 | Inpatient (IN) | payer OTHER ==
[2021-07-14] MEDS ORDERED: ALBUTEROL SO4 2.5/IPRATROPIUM 0.5 INH SOL 3 ML VIAL.NEB. NEB ONE ×2 (17:09→17:27)
[2021-07-14 17:53] LABS: ALBUMIN 3.3 g/dl (3.4-5.0); BILIRUBIN,TOTAL 0.7 mg/dl (0.2-1); CALCIUM 9.3 mg/dl (8.5-10); CREATININE 0.8 mg/dl (0.55-1.3); TOT PROT 6.2 g/dl (6.4-8.2)
[2021-07-14 18:21] LABS: VENOUS BASE EXCESS 0.1 mmol/L (-2-2); VENOUS O2 SATURATION 37.5 % (70-80); VENOUS PCO2 53.4 mmHg (38-52); VENOUS PH 7.328 (7.310-7.410)
[2021-07-14] MEDS ORDERED: methylPREDNISolone NA SUCC 125 MG/2 ML VIAL IVPB ONE (18:23)
[2021-07-14 18:26] LABS: EOS % 3.7 % (0-4.5); HEMATOCRIT 45.3 % (32.4-45.2); LYMPH % 11.8 % (8-40); MCH 29.1 pg (25.7-33.7); MEAN CELL VOLUME 88.2 fl (80-96); MONO % 9.5 % (3.8-10.2); PLATELET COUNT 260 10^3/uL (134-434); RBC 5.14 M/mm3 (3.60-5.2); RDW 13.3 % (11.6-15.6); WHITE BLOOD COUNT 11.1 K/mm3 (4.0-10.0)
[2021-07-14] MEDS ORDERED: methylPREDNISolone NA SUCC 125 MG/2 ML VIAL ONE (18:29)
[2021-07-14] MEDS ORDERED: ALBUTEROL SO4 2.5/IPRATROPIUM 0.5 INH SOL 3 ML VIAL.NEB. NEB SCH (18:30)
[2021-07-14 19:09] LABS: N-TERMINAL BNP 2213.4 pg/ml (5-450)
[2021-07-14] MEDS: methylPREDNISolone NA SUCC 40 MG/1 ML VIAL IVPUSH SCH (23:12)
[2021-07-14] MEDS: ENALAPRIL MALEATE 10 MG TABLET PO SCH (23:12)
[2021-07-15 00:25] VITALS: BMI 49.4
[2021-07-15] MEDS: ALBUTEROL SO4 0.083% IH SOL 2.5 MG/3 ML VIAL.NEB. NEB PRN (05:51)
[2021-07-15] MEDS: TORSEMIDE 20 MG TABLET (FP) PO SCH ×2 (06:40→13:51)
[2021-07-15] MEDS: ALBUTEROL SO4 2.5/IPRATROPIUM 0.5 INH SOL 3 ML VIAL.NEB. NEB SCH ×4 (08:07→21:45)
[2021-07-15] MEDS: ENALAPRIL MALEATE 10 MG TABLET PO SCH ×2 (10:48→21:46)
[2021-07-15] MEDS: methylPREDNISolone NA SUCC 40 MG/1 ML VIAL IVPUSH SCH ×2 (10:48→21:45)
[2021-07-15] MEDS: POTASSIUM CHLORIDE TABS 20 MEQ TABLET.ER (FP) PO SCH (10:48)
[2021-07-15] MEDS: MONTELUKAST NA 10 MG TABLET PO SCH (21:45)
[2021-07-16] MEDS: TORSEMIDE 20 MG TABLET (FP) PO SCH ×2 (05:56→14:34)
[2021-07-16] MEDS: ALBUTEROL SO4 0.083% IH SOL 2.5 MG/3 ML VIAL.NEB. NEB PRN ×2 (06:52→14:03)
[2021-07-16] MEDS: ALBUTEROL SO4 2.5/IPRATROPIUM 0.5 INH SOL 3 ML VIAL.NEB. NEB SCH ×4 (07:17→21:27)
[2021-07-16] MEDS: methylPREDNISolone NA SUCC 40 MG/1 ML VIAL IVPUSH SCH ×2 (09:47→21:26)
[2021-07-16] MEDS: POTASSIUM CHLORIDE TABS 20 MEQ TABLET.ER (FP) PO SCH (09:47)
[2021-07-16] MEDS: ENALAPRIL MALEATE 10 MG TABLET PO SCH ×2 (09:47→21:26)
[2021-07-16] MEDS: MONTELUKAST NA 10 MG TABLET PO SCH (21:26)
[2021-07-17] MEDS: guaiFENesin/D-METHORPHAN HB 10 ML UNIT-DOSE CUPS PO PRN (01:23)
[2021-07-17] MEDS: TORSEMIDE 20 MG TABLET (FP) PO SCH (06:50)
[2021-07-17] MEDS: methylPREDNISolone NA SUCC 40 MG/1 ML VIAL IVPUSH SCH ×2 (09:54→21:16)
[2021-07-17] MEDS: ENALAPRIL MALEATE 10 MG TABLET PO SCH ×2 (09:55→21:16)
[2021-07-17] MEDS: POTASSIUM CHLORIDE TABS 20 MEQ TABLET.ER (FP) PO SCH (09:55)
[2021-07-17] MEDS: ALBUTEROL SO4 2.5/IPRATROPIUM 0.5 INH SOL 3 ML VIAL.NEB. NEB SCH ×4 (09:55→20:15)
[2021-07-17] MEDS ORDERED: FUROSEMIDE 40 MG/4 ML INJECTABLE VIAL IVPUSH ONE (10:43)
[2021-07-17] MEDS: FUROSEMIDE 40 MG/4 ML INJECTABLE VIAL IVPUSH SCH ×2 (12:31→21:15)
[2021-07-17] MEDS: MONTELUKAST NA 10 MG TABLET PO SCH (21:16)
[2021-07-18 09:43] LABS: CALCIUM 8.8 mg/dl (8.5-10); CREATININE 1.2 mg/dl (0.55-1.3); HEMATOCRIT 44.8 % (32.4-45.2); HEMOGLOBIN 14.4 GM/dL (10.7-15.3); MCH 28.7 pg (25.7-33.7); MCHC 32.1 g/dl (32.0-36.0); MEAN CELL VOLUME 89.5 fl (80-96); MEAN PLT VOLUME 10.4 fl (7.5-11.1); PLATELET COUNT 249 10^3/uL (134-434); RDW 13.6 % (11.6-15.6); WHITE BLOOD COUNT 12.2 K/mm3 (4.0-10.0)
[2021-07-18] MEDS: FUROSEMIDE 40 MG/4 ML INJECTABLE VIAL IVPUSH SCH ×2 (10:06→21:27)
[2021-07-18] MEDS: methylPREDNISolone NA SUCC 40 MG/1 ML VIAL IVPUSH SCH ×2 (10:06→21:28)
[2021-07-18] MEDS: ALBUTEROL SO4 2.5/IPRATROPIUM 0.5 INH SOL 3 ML VIAL.NEB. NEB SCH ×2 (10:06→21:27)
[2021-07-18] MEDS: ENALAPRIL MALEATE 10 MG TABLET PO SCH ×2 (10:07→21:28)
[2021-07-18] MEDS: POTASSIUM CHLORIDE TABS 20 MEQ TABLET.ER (FP) PO SCH (10:07)
[2021-07-18 10:49] LABS: ALBUMIN 3.5 g/dl (3.4-5.0); BILIRUBIN,TOTAL 0.7 mg/dl (0.2-1); MAGNESIUM 2.2 mg/dL (1.8-2.4); TOT PROT 6.2 g/dl (6.4-8.2)
[2021-07-18] MEDS: MONTELUKAST NA 10 MG TABLET PO SCH (21:28)
[2021-07-19] MEDS: ALBUTEROL SO4 2.5/IPRATROPIUM 0.5 INH SOL 3 ML VIAL.NEB. NEB SCH ×5 (08:26→21:42)
[2021-07-19 08:46] LABS: CALCIUM 8.5 mg/dl (8.5-10); CREATININE 1.2 mg/dl (0.55-1.3)
[2021-07-19] MEDS: methylPREDNISolone NA SUCC 40 MG/1 ML VIAL IVPUSH SCH ×2 (10:08→21:42)
[2021-07-19] MEDS: FUROSEMIDE 40 MG/4 ML INJECTABLE VIAL IVPUSH SCH ×2 (10:11→21:42)
[2021-07-19] MEDS: ENALAPRIL MALEATE 10 MG TABLET PO SCH ×2 (10:15→21:42)
[2021-07-19] MEDS: POTASSIUM CHLORIDE TABS 20 MEQ TABLET.ER (FP) PO SCH (10:15)
[2021-07-19] MEDS: guaiFENesin/D-METHORPHAN HB 10 ML UNIT-DOSE CUPS PO PRN (21:42)
[2021-07-19] MEDS: MONTELUKAST NA 10 MG TABLET PO SCH (21:42)
[2021-07-20 08:52] LABS: CREATININE 1.1 mg/dl (0.55-1.3)
[2021-07-20] MEDS: FUROSEMIDE 40 MG/4 ML INJECTABLE VIAL IVPUSH SCH ×2 (09:13→21:46)
[2021-07-20] MEDS: POTASSIUM CHLORIDE TABS 20 MEQ TABLET.ER (FP) PO SCH (09:13)
[2021-07-20] MEDS: ENALAPRIL MALEATE 10 MG TABLET PO SCH ×2 (09:13→21:46)
[2021-07-20] MEDS: methylPREDNISolone NA SUCC 40 MG/1 ML VIAL IVPUSH SCH ×2 (09:13→21:46)
[2021-07-20] MEDS ORDERED: ALBUTEROL SO4 2.5/IPRATROPIUM 0.5 INH SOL 3 ML VIAL.NEB. NEB PRN (16:18)
[2021-07-20] MEDS ORDERED: ALBUTEROL SO4 0.083% IH SOL 2.5 MG/3 ML VIAL.NEB. NEB PRN ×2 (16:18→16:19)
[2021-07-20] MEDS ORDERED: methylPREDNISolone NA SUCC 40 MG/1 ML VIAL ONE (21:39)
[2021-07-20] MEDS: guaiFENesin/D-METHORPHAN HB 10 ML UNIT-DOSE CUPS PO PRN (21:46)
[2021-07-20] MEDS: MONTELUKAST NA 10 MG TABLET PO SCH (21:46)
[2021-07-20] MEDS: ALBUTEROL SO4 2.5/IPRATROPIUM 0.5 INH SOL 3 ML VIAL.NEB. NEB SCH (21:47)
[2021-07-21] MEDS: methylPREDNISolone NA SUCC 40 MG/1 ML VIAL IVPUSH SCH ×2 (06:48→15:21)
[2021-07-21 08:42] LABS: CALCIUM 8.9 mg/dl (8.5-10); CREATININE 1.2 mg/dl (0.55-1.3)
[2021-07-21] MEDS: FUROSEMIDE 40 MG/4 ML INJECTABLE VIAL IVPUSH SCH ×2 (09:31→21:15)
[2021-07-21] MEDS: ENALAPRIL MALEATE 10 MG TABLET PO SCH ×2 (09:32→21:15)
[2021-07-21] MEDS: POTASSIUM CHLORIDE TABS 20 MEQ TABLET.ER (FP) PO SCH (09:32)
[2021-07-21] MEDS: ALBUTEROL SO4 2.5/IPRATROPIUM 0.5 INH SOL 3 ML VIAL.NEB. NEB SCH ×4 (09:32→21:15)
[2021-07-21] MEDS: MONTELUKAST NA 10 MG TABLET PO SCH (21:15)
[2021-07-22 08:16] LABS: CALCIUM 8.6 mg/dl (8.5-10); CREATININE 1.1 mg/dl (0.55-1.3)
[2021-07-22] MEDS ORDERED: methylPREDNISolone NA SUCC 40 MG/1 ML VIAL IVPUSH SCH (10:00)
[2021-07-22] MEDS: POTASSIUM CHLORIDE TABS 20 MEQ TABLET.ER (FP) PO SCH (10:39)
[2021-07-22] MEDS: FUROSEMIDE 40 MG/4 ML INJECTABLE VIAL IVPUSH SCH (10:40)
[2021-07-22] MEDS: ALBUTEROL SO4 2.5/IPRATROPIUM 0.5 INH SOL 3 ML VIAL.NEB. NEB SCH ×4 (10:40→21:25)
[2021-07-22] MEDS: ENALAPRIL MALEATE 10 MG TABLET PO SCH ×2 (10:44→21:25)
[2021-07-22] MEDS: guaiFENesin/D-METHORPHAN HB 10 ML UNIT-DOSE CUPS PO PRN (21:25)
[2021-07-22] MEDS: MONTELUKAST NA 10 MG TABLET PO SCH (21:26)
[2021-07-23 08:08] LABS: CALCIUM 8.9 mg/dl (8.5-10)
[2021-07-23] MEDS: POTASSIUM CHLORIDE TABS 20 MEQ TABLET.ER (FP) PO SCH (09:41)
[2021-07-23] MEDS: ENALAPRIL MALEATE 10 MG TABLET PO SCH (09:41)
[2021-07-23] MEDS: ALBUTEROL SO4 2.5/IPRATROPIUM 0.5 INH SOL 3 ML VIAL.NEB. NEB SCH (09:41)
[2021-07-23] MEDS ORDERED: predniSONE 20 MG TABLET (UD) PO SCH (10:00)
[2021-07-23 10:37] VITALS: BP 156/81; PULSE 55; TEMP 98.3
[2021-07-23] MEDS ORDERED: TORSEMIDE 20 MG TABLET (FP) PO SCH (22:00)
== END 2021-07-23 13:56 | disposition home health service (06) | DRG 291 ==
LOC: FER 16:31 → FM/S 18:31 → UNDOADMOB 18:31 → INTOOBSV 18:31 → OBSVTOIN 22:58 → UNDOADMOB 22:58 → INTOOBSV 22:58 → FM/S 22:58 → OBSVTOIN 07-17 11:09
PROVIDERS: ADMIT Internal Medicine; ATTEND Family Medicine
DX: I11.0 Hypertensive heart disease with heart failure (principal); I50.23 Acute on chronic systolic (congestive) heart failure; J44.1 Chronic obstructive pulmonary disease with (acute) exacerbation; Z68.42 Body mass index [BMI] 45.0-49.9, adult; E04.1 Nontoxic single thyroid nodule; R91.1 Solitary pulmonary nodule; D72.829 Elevated white blood cell count, unspecified; E66.01 Morbid (severe) obesity due to excess calories; I44.7 Left bundle-branch block, unspecified
CPT/HCPCS: 36415; 71045-TC-FY; 71250-TC; 80048; 80053; 82803; 83036; 83735; 83880; 84484; 85025; 85027; 93005; 94010; 94640; 99285-25; C9803; U0003; U0005

== ENCOUNTER 2021-11-18 15:28 | Inpatient (IN) | payer OTHER ==
[2021-11-18 16:00] VITALS: BMI 47.2
[2021-11-18 16:15] LABS: HEMATOCRIT 42.1 % (32.4-45.2); HEMOGLOBIN 14.7 G/dL (10.7-15.3); MCH 31.8 pg (25.7-33.7); MEAN CELL VOLUME 90.9 fl (80-96); PLATELET COUNT 180.8 10^3/uL (134-434); RBC 4.63 10^6/uL (3.60-5.2); RDW 13.6 % (11.6-15.6); WHITE BLOOD COUNT 6.6 10^3/uL (4.0-10.8)
[2021-11-18 16:23] LABS: INR 1.58 (0.83-1.09); PROTHROMBIN TIME (PATIENT) 18.2 SEC (9.7-13.0)
[2021-11-18 16:31] LABS: BILIRUBIN,TOTAL 0.7 mg/dl (0.2-1); CALCIUM 7.3 mg/dl (8.5-10); CREATININE 0.9 mg/dl (0.55-1.3); TOT PROT 4.7 g/dl (6.4-8.2)
[2021-11-18] MEDS ORDERED: ACETAMINOPHEN 1000 MG/100 ML BAG IVPB ONE (17:23)
[2021-11-18] MEDS ORDERED: ACETAMINOPHEN INJECTION 100 ML IVPB ONE (17:25)
[2021-11-18 18:47] LABS: N-TERMINAL BNP 915.5 pg/ml (5-450)
[2021-11-18] MEDS ORDERED: ALBUTEROL SO4 HFA INHALER IH PRN (23:32)
[2021-11-19] MEDS: APIXABAN 5 MG TABLET PO SCH ×3 (01:10→21:09)
[2021-11-19] MEDS ORDERED: POTASSIUM CHLORIDE TABS 20 MEQ TABLET.ER (FP) PO ONE (01:15)
[2021-11-19] MEDS ORDERED: methylPREDNISolone NA SUCC 40 MG/1 ML VIAL IVPUSH SCH (04:00)
[2021-11-19] MEDS ORDERED: FUROSEMIDE 40 MG TABLET (FP) PO SCH (06:00)
[2021-11-19 08:59] LABS: EOS % 0.1 % (0-4.5); HEMATOCRIT 44.4 % (32.4-45.2); HEMOGLOBIN 14.8 GM/dL (10.7-15.3); LYMPH % 10.4 % (8-40); MCH 30.5 pg (25.7-33.7); MCHC 33.3 g/dl (32.0-36.0); MEAN CELL VOLUME 91.8 fl (80-96); MEAN PLT VOLUME 10.3 fl (7.5-11.1); MONO % 3.9 % (3.8-10.2); NEUT % 84.6 % (42.8-82.8); PLATELET COUNT 183 10^3/uL (134-434); RBC 4.83 M/mm3 (3.60-5.2); RDW 13.1 % (11.6-15.6); WHITE BLOOD COUNT 5.6 K/mm3 (4.0-10.0)
[2021-11-19 09:17] LABS: CHOLESTEROL 118 mg/dL (50-200); TRIGLYCERIDES 77 mg/dL (0-150)
[2021-11-19 09:18] LABS: LDL CHOLESTEROL (ONLY SJRH) 77 mg/dL (5-100)
[2021-11-19 09:19] LABS: HDL CHOLESTEROL 39 mg/dL (40-60)
[2021-11-19 09:23] LABS: LDH 203 U/L (84-246)
[2021-11-19] MEDS: ZINC SULFATE 220 MG CAPSULE (FP) PO SCH (09:28)
[2021-11-19] MEDS: CHOLECALCIFEROL (VIT D3) 1,000 UNIT (25 MCG) TABLET PO SCH (09:29)
[2021-11-19] MEDS: methylPREDNISolone NA SUCC 40 MG/1 ML VIAL IVPUSH SCH ×2 (09:29→17:06)
[2021-11-19] MEDS: POTASSIUM CHLORIDE TABS 20 MEQ TABLET.ER (FP) PO SCH (09:29)
[2021-11-19] MEDS: ASCORBIC ACID 500 MG TABLET (FP) PO SCH (09:29)
[2021-11-19] MEDS: BUDESONIDE/FORMETEROL FUMARATE 160/4.5 mcg INHALER IH SCH ×3 (09:30→23:33)
[2021-11-19] MEDS ORDERED: NIFEdipine E.R. 30 MG TABLET PO SCH (10:00)
[2021-11-19] MEDS ORDERED: FUROSEMIDE 40 MG/4 ML INJECTABLE VIAL IVPUSH ONE (12:00)
[2021-11-19] MEDS ORDERED: REMDESIVIR 200 MG in SODIUM CHLORIDE 250 ML IVPB ONE (12:00)
[2021-11-19 12:35] LABS: BLOOD UREA NITROGEN 19.4 mg/dL (7-18); CHLORIDE 105 mmol/L (98-107); CO2 30 mmol/L (21-32); GLUCOSE,RANDOM 161 mg/dL (74-106); SODIUM 141 mmol/L (136-145)
[2021-11-19 12:36] LABS: ALBUMIN 3.6 g/dl (3.4-5.0); ALK PHOS 114 U/L (45-117); BILIRUBIN,TOTAL 0.4 mg/dL (0.2-1); MAGNESIUM 2.3 mg/dL (1.8-2.4); SGOT/AST 27 U/L (15-37); SGPT/ALT 30 U/L (13-61); TOT PROT 6.3 g/dl (6.4-8.2)
[2021-11-19] MEDS: ALBUTEROL SO4 2.5/IPRATROPIUM 0.5 INH SOL 3 ML VIAL.NEB. NEB SCH ×3 (15:05→19:38)
[2021-11-19] MEDS: MONTELUKAST NA 10 MG TABLET PO SCH (21:09)
[2021-11-19] MEDS: guaiFENesin 200 MG/10 ML 10 ML UNIT-DOSE CUPS PO PRN (21:09)
[2021-11-19] MEDS: SACUBITRIL/VALSARTAN 24 MG-26 MG TABLET PO SCH (21:09)
[2021-11-20] MEDS: methylPREDNISolone NA SUCC 40 MG/1 ML VIAL IVPUSH SCH ×3 (02:29→17:01)
[2021-11-20] MEDS: FUROSEMIDE 40 MG/4 ML INJECTABLE VIAL IVPUSH SCH ×2 (05:49→13:39)
[2021-11-20] MEDS ORDERED: FUROSEMIDE 40 MG/4 ML INJECTABLE VIAL IVPUSH SCH ×3 (06:00→14:00)
[2021-11-20] MEDS: ALBUTEROL SO4 2.5/IPRATROPIUM 0.5 INH SOL 3 ML VIAL.NEB. NEB SCH ×4 (08:00→20:15)
[2021-11-20 08:37] LABS: HEMATOCRIT 42.7 % (32.4-45.2); HEMOGLOBIN 14.2 GM/dL (10.7-15.3); MCH 30.1 pg (25.7-33.7); MCHC 33.3 g/dl (32.0-36.0); MEAN CELL VOLUME 90.5 fl (80-96); MEAN PLT VOLUME 10.1 fl (7.5-11.1); PLATELET COUNT 172 10^3/uL (134-434); RBC 4.72 M/mm3 (3.60-5.2); RDW 12.8 % (11.6-15.6); WHITE BLOOD COUNT 6.5 K/mm3 (4.0-10.0)
[2021-11-20 09:04] LABS: BLOOD UREA NITROGEN 21.6 mg/dL (7-18); CALCIUM 8.6 mg/dL (8.5-10.1)
[2021-11-20 09:07] LABS: CREATININE 0.8 mg/dL (0.55-1.3)
[2021-11-20] MEDS: SACUBITRIL/VALSARTAN 24 MG-26 MG TABLET PO SCH ×2 (10:43→21:03)
[2021-11-20] MEDS: ASCORBIC ACID 500 MG TABLET (FP) PO SCH (10:43)
[2021-11-20] MEDS: ZINC SULFATE 220 MG CAPSULE (FP) PO SCH (10:43)
[2021-11-20] MEDS: CHOLECALCIFEROL (VIT D3) 1,000 UNIT (25 MCG) TABLET PO SCH (10:43)
[2021-11-20] MEDS: POTASSIUM CHLORIDE TABS 20 MEQ TABLET.ER (FP) PO SCH (10:43)
[2021-11-20] MEDS: REMDESIVIR 100 MG in SODIUM CHLORIDE 250 ML IVPB SCH (10:43)
[2021-11-20] MEDS: APIXABAN 5 MG TABLET PO SCH ×2 (10:43→21:03)
[2021-11-20] MEDS: BUDESONIDE/FORMETEROL FUMARATE 160/4.5 mcg INHALER IH SCH ×2 (10:44→21:03)
[2021-11-20] MEDS: NIFEdipine E.R. 30 MG TABLET PO SCH (10:44)
[2021-11-20] MEDS: MONTELUKAST NA 10 MG TABLET PO SCH (21:03)
[2021-11-21] MEDS: FUROSEMIDE 40 MG TABLET (FP) PO SCH ×2 (06:13→13:59)
[2021-11-21] MEDS: ALBUTEROL SO4 2.5/IPRATROPIUM 0.5 INH SOL 3 ML VIAL.NEB. NEB SCH ×4 (07:18→20:05)
[2021-11-21 08:26] LABS: BASO % 0.1 % (0-2.0); CALCIUM 8.9 mg/dL (8.5-10.1); HEMATOCRIT 45.4 % (32.4-45.2); HEMOGLOBIN 15.1 GM/dL (10.7-15.3); MCH 30.3 pg (25.7-33.7); MCHC 33.3 g/dl (32.0-36.0); MEAN CELL VOLUME 91.1 fl (80-96); MEAN PLT VOLUME 10.6 fl (7.5-11.1); MONO % 4.4 % (3.8-10.2); NEUT % 88.5 % (42.8-82.8); PLATELET COUNT 203 10^3/uL (134-434); RBC 4.98 M/mm3 (3.60-5.2); RDW 13.2 % (11.6-15.6)
[2021-11-21 08:27] LABS: BLOOD UREA NITROGEN 26.3 mg/dL (7-18)
[2021-11-21 08:30] LABS: CREATININE 0.9 mg/dL (0.55-1.3)
[2021-11-21] MEDS: DEXAMETHASONE SOD PHOSPHATE 10 MG/1 ML VIAL IVPUSH SCH (10:32)
[2021-11-21] MEDS: POTASSIUM CHLORIDE TABS 20 MEQ TABLET.ER (FP) PO SCH (10:32)
[2021-11-21] MEDS: ASCORBIC ACID 500 MG TABLET (FP) PO SCH (10:32)
[2021-11-21] MEDS: BUDESONIDE/FORMETEROL FUMARATE 160/4.5 mcg INHALER IH SCH ×2 (10:33→21:14)
[2021-11-21] MEDS: CHOLECALCIFEROL (VIT D3) 1,000 UNIT (25 MCG) TABLET PO SCH (10:33)
[2021-11-21] MEDS: NIFEdipine E.R. 30 MG TABLET PO SCH (10:33)
[2021-11-21] MEDS: SACUBITRIL/VALSARTAN 24 MG-26 MG TABLET PO SCH ×2 (10:33→21:14)
[2021-11-21] MEDS: REMDESIVIR 100 MG in SODIUM CHLORIDE 250 ML IVPB SCH (10:33)
[2021-11-21] MEDS: ZINC SULFATE 220 MG CAPSULE (FP) PO SCH (10:33)
[2021-11-21] MEDS: APIXABAN 5 MG TABLET PO SCH ×2 (10:33→21:14)
[2021-11-21] MEDS: MONTELUKAST NA 10 MG TABLET PO SCH (21:14)
[2021-11-22] MEDS: FUROSEMIDE 40 MG TABLET (FP) PO SCH ×2 (06:13→14:16)
[2021-11-22] MEDS: ALBUTEROL SO4 2.5/IPRATROPIUM 0.5 INH SOL 3 ML VIAL.NEB. NEB SCH ×4 (08:01→20:05)
[2021-11-22 08:56] LABS: BASO % 0.1 % (0-2.0); HEMATOCRIT 47.2 % (32.4-45.2); HEMOGLOBIN 15.6 GM/dL (10.7-15.3); LYMPH % 11.9 % (8-40); MCH 30.3 pg (25.7-33.7); MCHC 33.1 g/dl (32.0-36.0); MEAN CELL VOLUME 91.7 fl (80-96); MEAN PLT VOLUME 10.3 fl (7.5-11.1); MONO % 8.1 % (3.8-10.2); NEUT % 79.9 % (42.8-82.8); PLATELET COUNT 201 10^3/uL (134-434); RBC 5.14 M/mm3 (3.60-5.2); RDW 13.5 % (11.6-15.6); WHITE BLOOD COUNT 10.7 K/mm3 (4.0-10.0)
[2021-11-22 09:13] LABS: CALCIUM 8.5 mg/dL (8.5-10.1)
[2021-11-22 09:14] LABS: ALBUMIN 3.3 g/dl (3.4-5.0); BLOOD UREA NITROGEN 24.8 mg/dL (7-18); MAGNESIUM 2.4 mg/dL (1.8-2.4)
[2021-11-22 09:17] LABS: CREATININE 0.9 mg/dL (0.55-1.3)
[2021-11-22 09:19] LABS: BILIRUBIN,TOTAL 0.3 mg/dL (0.2-1); TOT PROT 5.8 g/dl (6.4-8.2)
[2021-11-22] MEDS: CHOLECALCIFEROL (VIT D3) 1,000 UNIT (25 MCG) TABLET PO SCH (10:33)
[2021-11-22] MEDS: SACUBITRIL/VALSARTAN 24 MG-26 MG TABLET PO SCH ×2 (10:33→21:39)
[2021-11-22] MEDS: APIXABAN 5 MG TABLET PO SCH ×2 (10:33→21:38)
[2021-11-22] MEDS: ZINC SULFATE 220 MG CAPSULE (FP) PO SCH (10:33)
[2021-11-22] MEDS: metoPROLOL SUCCINATE 25 MG TAB.SR.24H (FP) PO SCH (10:33)
[2021-11-22] MEDS: ASCORBIC ACID 500 MG TABLET (FP) PO SCH (10:33)
[2021-11-22] MEDS: POTASSIUM CHLORIDE TABS 20 MEQ TABLET.ER (FP) PO SCH (10:33)
[2021-11-22] MEDS: DEXAMETHASONE SOD PHOSPHATE 10 MG/1 ML VIAL IVPUSH SCH (10:33)
[2021-11-22] MEDS: BUDESONIDE/FORMETEROL FUMARATE 160/4.5 mcg INHALER IH SCH ×2 (10:34→21:39)
[2021-11-22] MEDS: REMDESIVIR 100 MG in SODIUM CHLORIDE 250 ML IVPB SCH (10:34)
[2021-11-22] MEDS: guaiFENesin 200 MG/10 ML 10 ML UNIT-DOSE CUPS PO PRN ×2 (10:54→21:40)
[2021-11-22] MEDS: MONTELUKAST NA 10 MG TABLET PO SCH (21:39)
[2021-11-23] MEDS: FUROSEMIDE 40 MG TABLET (FP) PO SCH ×2 (05:50→14:07)
[2021-11-23 06:57] LABS: BASO % 0.2 % (0-2.0); HEMATOCRIT 44.1 % (32.4-45.2); HEMOGLOBIN 15.1 GM/dL (10.7-15.3); LYMPH % 14.4 % (8-40); MCH 30.5 pg (25.7-33.7); MCHC 34.1 g/dl (32.0-36.0); MEAN CELL VOLUME 89.2 fl (80-96); MEAN PLT VOLUME 10.7 fl (7.5-11.1); MONO % 9.2 % (3.8-10.2); NEUT % 76.2 % (42.8-82.8); PLATELET COUNT 183 10^3/uL (134-434); RBC 4.94 M/mm3 (3.60-5.2); RDW 12.8 % (11.6-15.6); WHITE BLOOD COUNT 9.7 K/mm3 (4.0-10.0)
[2021-11-23 07:17] LABS: ALBUMIN 2.8 g/dl (3.4-5.0); CALCIUM 8.3 mg/dL (8.5-10.1)
[2021-11-23 07:20] LABS: CREATININE 0.8 mg/dL (0.55-1.3)
[2021-11-23 07:22] LABS: BILIRUBIN,TOTAL 0.4 mg/dL (0.2-1); TOT PROT 5.4 g/dl (6.4-8.2)
[2021-11-23] MEDS: ALBUTEROL SO4 2.5/IPRATROPIUM 0.5 INH SOL 3 ML VIAL.NEB. NEB SCH ×3 (08:20→15:09)
[2021-11-23] MEDS: DEXAMETHASONE SOD PHOSPHATE 10 MG/1 ML VIAL IVPUSH SCH (10:00)
[2021-11-23] MEDS: REMDESIVIR 100 MG in SODIUM CHLORIDE 250 ML IVPB SCH (10:00)
[2021-11-23] MEDS: APIXABAN 5 MG TABLET PO SCH (10:01)
[2021-11-23] MEDS: ASCORBIC ACID 500 MG TABLET (FP) PO SCH (10:01)
[2021-11-23] MEDS: CHOLECALCIFEROL (VIT D3) 1,000 UNIT (25 MCG) TABLET PO SCH (10:01)
[2021-11-23] MEDS: SACUBITRIL/VALSARTAN 24 MG-26 MG TABLET PO SCH (10:01)
[2021-11-23] MEDS: metoPROLOL SUCCINATE 25 MG TAB.SR.24H (FP) PO SCH (10:01)
[2021-11-23] MEDS: POTASSIUM CHLORIDE TABS 20 MEQ TABLET.ER (FP) PO SCH (10:01)
[2021-11-23] MEDS: ZINC SULFATE 220 MG CAPSULE (FP) PO SCH (10:01)
[2021-11-23] MEDS: BUDESONIDE/FORMETEROL FUMARATE 160/4.5 mcg INHALER IH SCH (10:04)
[2021-11-23 15:04] VITALS: PULSE 89
[2021-11-23 15:13] VITALS: BP 132/92; TEMP 97.9
== END 2021-11-23 17:22 | disposition home health service (06) | DRG 177 ==
LOC: FER 15:28 → J4S 11-19 02:05
PROVIDERS: ADMIT Internal Medicine; ATTEND Internal Medicine
PROC: XW033E5 Introduction of Remdesivir Anti-infective into Peripheral Vein, Percutaneous Approach, New Technology Group 5 (ICD-10-PCS; principal; 2021-11-19)
DX: U07.1 COVID-19 (principal); J96.01 Acute respiratory failure with hypoxia; J12.82 Pneumonia due to coronavirus disease 2019; I24.8 Other forms of acute ischemic heart disease; J44.1 Chronic obstructive pulmonary disease with (acute) exacerbation; J45.901 Unspecified asthma with (acute) exacerbation; Z68.42 Body mass index [BMI] 45.0-49.9, adult; I50.22 Chronic systolic (congestive) heart failure; E66.01 Morbid (severe) obesity due to excess calories; E04.1 Nontoxic single thyroid nodule; R91.1 Solitary pulmonary nodule; I44.7 Left bundle-branch block, unspecified; Z86.718 Personal history of other venous thrombosis and embolism; Z79.01 Long term (current) use of anticoagulants; I11.0 Hypertensive heart disease with heart failure; E66.9 Obesity, unspecified; E87.6 Hypokalemia; Z99.81 Dependence on supplemental oxygen
CPT/HCPCS: 0241U-QW; 36415; 71045-TC-FY; 80048; 80053; 80061; 82728; 83615; 83735; 83880; 84443; 84484; 85025; 85027; 85379; 85610; 86140; 93005; 93010; 93306-TC; 93971-TC; 94010; 94640; 94761; 97116-GP; 97161-GP; 99285-25; C9399; J1100

== ENCOUNTER 2022-02-16 11:18 | Inpatient (IN) | payer OTHER ==
[2022-02-16 11:39] VITALS: RESP 20; BMI 37.8
[2022-02-16] MEDS ORDERED: ALBUTEROL SO4 2.5/IPRATROPIUM 0.5 INH SOL 3 ML VIAL.NEB. NEB ONE ×2 (12:01→12:02)
[2022-02-16] MEDS ORDERED: methylPREDNISolone NA SUCC 125 MG/2 ML VIAL IVPUSH ONE (12:01)
[2022-02-16] MEDS ORDERED: methylPREDNISolone NA SUCC 125 MG/2 ML VIAL ONE (12:02)
[2022-02-16 12:34] LABS: HEMATOCRIT 47.7 % (32.4-45.2); HEMOGLOBIN 16.5 G/dL (10.7-15.3); MCH 32.2 pg (25.7-33.7); MCHC 34.6 g/dl (32.0-36.0); MEAN PLT VOLUME 10.1 fl (7.5-11.1); PLATELET COUNT 229.6 10^3/uL (134-434); RBC 5.13 10^6/uL (3.60-5.2); RDW 14.3 % (11.6-15.6); WHITE BLOOD COUNT 10.1 10^3/uL (4.0-10.8)
[2022-02-16 12:38] LABS: PLATELET ESTIMATE ADEQUATE
[2022-02-16 12:42] LABS: ALBUMIN 3.6 g/dl (3.4-5.0); BILIRUBIN,TOTAL 0.8 mg/dl (0.2-1); CALCIUM 9.3 mg/dl (8.5-10); CREATININE 0.7 mg/dl (0.55-1.3)
[2022-02-16] MEDS ORDERED: AZITHROMYCIN IVPB 500 MG in DEXTROSE 5%-WATER - 250 ML IVPB ONE (14:08)
[2022-02-16] MEDS ORDERED: CEFTRIAXONE 1 GM in DEXTROSE 5%-WATER - 50 ML IVPB ONE (14:08)
[2022-02-16] MEDS ORDERED: AZITHROMYCIN 250 MG TABLET PO ONE (14:20)
[2022-02-16] MEDS ORDERED: AZITHROMYCIN 500 MG TABLET ONE (14:30)
[2022-02-16] MEDS ORDERED: cefTRIAXone SODIUM 1 GM VIAL ONE (14:31)
[2022-02-16] MEDS ORDERED: ACETAMINOPHEN 325 MG TABLET (FP) PO PRN (14:47)
[2022-02-16] MEDS ORDERED: ALBUTEROL SO4 0.083% IH SOL 2.5 MG/3 ML VIAL.NEB. NEB PRN (14:47)
[2022-02-16] MEDS ORDERED: guaiFENesin 200 MG/10 ML 10 ML UNIT-DOSE CUPS PO PRN (14:47)
[2022-02-16 16:43] VITALS: BP 145/75; PULSE 72; TEMP 98.3
[2022-02-16] MEDS ORDERED: methylPREDNISolone NA SUCC 40 MG/1 ML VIAL IVPUSH SCH (18:00)
[2022-02-16] MEDS ORDERED: APIXABAN 5 MG TABLET PO SCH (22:00)
[2022-02-16] MEDS ORDERED: SACUBITRIL/VALSARTAN 24 MG-26 MG TABLET PO SCH (22:00)
[2022-02-16] MEDS ORDERED: BUDESONIDE/FORMETEROL FUMARATE 160/4.5 mcg INHALER IH SCH (22:00)
[2022-02-16] MEDS ORDERED: MONTELUKAST NA 10 MG TABLET PO SCH (22:00)
[2022-02-17] MEDS ORDERED: POTASSIUM CHLORIDE TABS 10 MEQ TABLET.ER (FP) PO SCH (10:00)
[2022-02-17] MEDS ORDERED: FUROSEMIDE 40 MG/4 ML INJECTABLE VIAL IVPUSH SCH (10:00)
[2022-02-17] MEDS ORDERED: metoPROLOL SUCCINATE 25 MG TAB.SR.24H (FP) PO SCH (10:00)
== END 2022-02-16 18:01 | disposition left against medical advice (07) | DRG 190 ==
LOC: FER 11:18 → UNDOADMIN 14:40 → FM/S 14:40 → FER 18:01
PROVIDERS: ADMIT Family Medicine; ATTEND Family Medicine
DX: J44.1 Chronic obstructive pulmonary disease with (acute) exacerbation (principal); U07.1 COVID-19; I11.0 Hypertensive heart disease with heart failure; I50.9 Heart failure, unspecified; R05.9 Cough, unspecified; R07.89 Other chest pain
CPT/HCPCS: 0241U-QW; 36415; 71045-TC-FY; 80053; 83880; 84484; 85027; 93005; 99285-25

== ENCOUNTER 2024-07-30 19:48 | Observation (INO) | payer OTHER ==
[2024-07-30 21:02] LABS: HEMATOCRIT 48.4 % (32.4-45.2); HEMOGLOBIN 16.9 G/dL (10.7-15.3); MCH 32.2 pg (25.7-33.7); MCHC 34.9 g/dl (32.0-36.0); MEAN CELL VOLUME 92.1 fl (80-96); MEAN PLT VOLUME 10.4 fl (7.5-11.1); PLATELET COUNT 227.7 10^3/uL (134-434); RBC 5.25 10^6/uL (3.60-5.2); RDW 13.3 % (11.6-15.6); WHITE BLOOD COUNT 11.9 10^3/uL (4.0-10.8)
[2024-07-30 21:17] LABS: PLATELET ESTIMATE ADEQUATE
[2024-07-30 21:24] LABS: INR 1.29 (0.83-1.09); PROTHROMBIN TIME (PATIENT) 14.6 SEC (9.7-13.0)
[2024-07-30 21:38] LABS: ALBUMIN 4.1 g/dl (3.4-5.0); ALK PHOS 139 U/L (45-117); ANION GAP 11 mmol/L (4-13); BILIRUBIN,TOTAL 0.6 mg/dl (0.2-1); CALCIUM 9.2 mg/dl (8.5-10.1); CHLORIDE 103 mmol/L (98-107); CO2 29 mmol/L (21-32); CREATININE 0.9 mg/dl (0.6-1.3); GLUCOSE,RANDOM 97 mg/dl (74-106); POTASSIUM 4.3 mmol/L (3.5-5.1); SGOT/AST 44 U/L (15-37); SGPT/ALT 25 U/L (7-52); SODIUM 143 mmol/L (136-145); TOT PROT 6.3 g/dl (6.4-8.2)
[2024-07-30] MEDS ORDERED: ASPIRIN 325 MG TABLET ONE (21:45)
[2024-07-30] MEDS: ASPIRIN 325 MG TABLET PO ONE (21:47)
[2024-07-30] MEDS ORDERED: DOCUSATE SODIUM 100 MG CAPSULE (FP) PO PRN (22:45)
[2024-07-30] MEDS ORDERED: ACETAMINOPHEN 325 MG TABLET (FP) PO PRN (22:45)
[2024-07-31] MEDS: BUDESONIDE/FORMETEROL FUMARATE 160/4.5 mcg INHALER IH SCH (00:21)
[2024-07-31] MEDS: APIXABAN 5 MG TABLET PO SCH (00:21)
[2024-07-31] MEDS: SACUBITRIL/VALSARTAN 24 MG-26 MG TABLET PO SCH (00:21)
[2024-07-31] MEDS: guaiFENesin/D-METHORPHAN HB 10 ML UNIT-DOSE CUPS PO PRN (01:40)
[2024-07-31] MEDS: ALBUTEROL SO4 2.5/IPRATROPIUM 0.5 INH SOL 3 ML VIAL.NEB. NEB PRN (01:40)
[2024-07-31] MEDS: FUROSEMIDE 40 MG TABLET (FP) PO SCH (06:00)
[2024-07-31 06:28] VITALS: BMI 84.2
[2024-07-31 08:00] LABS: HEMATOCRIT 45.7 % (32.4-45.2); HEMOGLOBIN 15.2 G/dL (10.7-15.3); MCH 30.8 pg (25.7-33.7); MCHC 33.3 g/dl (32.0-36.0); MEAN CELL VOLUME 92.4 fl (80-96); MEAN PLT VOLUME 10.1 fl (7.5-11.1); PLATELET COUNT 197.9 10^3/uL (134-434); RBC 4.95 10^6/uL (3.60-5.2); RDW 13.2 % (11.6-15.6); WHITE BLOOD COUNT 7.9 10^3/uL (4.0-10.8)
[2024-07-31] MEDS ORDERED: ALBUTEROL SO4 2.5/IPRATROPIUM 0.5 INH SOL 3 ML VIAL.NEB. NEB SCH (08:00)
[2024-07-31] MEDS: metoPROLOL SUCCINATE 25 MG TAB.SR.24H (FP) PO SCH (09:10)
[2024-07-31] MEDS: PANTOPRAZOLE 40 MG TABLET PO SCH (09:10)
[2024-07-31 10:01] LABS: CALCIUM 8.8 mg/dl (8.5-10.1); CREATININE 0.9 mg/dl (0.6-1.3); MAGNESIUM 2.1 mg/dL (1.8-2.4); PHOSPHOROUS 3.6 (2.5-4.9); POTASSIUM 3.7 mmol/L (3.5-5.1)
[2024-07-31] MEDS: MONTELUKAST NA 10 MG TABLET PO SCH (21:04)
[2024-08-01 06:14] VITALS: RESP 18
[2024-08-01 10:13] VITALS: BP 128/66; PULSE 66; TEMP 97.8
== END 2024-08-01 11:03 | disposition home or self-care (01) ==
LOC: FER 19:48 → FM/S 22:19 → UNDOADMOB 22:25
PROVIDERS: ADMIT Internal Medicine
PROC: 3E0F7GC Introduction of Other Therapeutic Substance into Respiratory Tract, Via Natural or Artificial Opening (ICD-10-PCS; principal; 2024-07-30)
DX: I50.20 Unspecified systolic (congestive) heart failure (principal); I11.0 Hypertensive heart disease with heart failure; J44.9 Chronic obstructive pulmonary disease, unspecified; E04.1 Nontoxic single thyroid nodule; Z79.01 Long term (current) use of anticoagulants; Z90.49 Acquired absence of other specified parts of digestive tract; R91.8 Other nonspecific abnormal finding of lung field; I48.91 Unspecified atrial fibrillation; Z86.718 Personal history of other venous thrombosis and embolism
CPT/HCPCS: 0241U-QW; 36415; 71045-TC-FY; 80048; 80053; 83735; 84100; 84484; 85025; 85379; 85610; 85730; 93005; 93306-TC; 94640; 97116-GP; 97162-GP; 99285-25; G0378